=== PATIENT | male | born 1960 | race Caucasian/White ===

== ENCOUNTER 2016-04-04 18:22 | Inpatient (IN) | payer MEDICARE, MEDICAID ==
[~2016-04-04 18:22] MED LIST: FOLI1TAB15 PO; LEVE500T53 PO; MONT10TA21 PO; NICO14T TD; OLAN10TA3 PO; OLAN10VI3 PO; OLAN5Z PO; SERT100T12 PO; THIA1002I PO
[2016-04-04] MEDS ORDERED: HALOPERIDOL 5 MG TABLET PO PRN (18:45)
[2016-04-04] MEDS ORDERED: INFLUENZA VIRUS VACCINE QVS 2016-17 (3YR+)/PF 60 MCG/0.5 ML SYRINGE IM ONE (18:45)
[2016-04-04] MEDS ORDERED: PNEUMOCOCCAL VACCINE POLYVALENT 0.5 ML VIAL [PPSV23] IM ONE (18:45)
[2016-04-04 21:09] VITALS: BP 119/93
[2016-04-05 05:29] VITALS: BP 122/83
[2016-04-05] MEDS: LevETIRAcetam 500 MG TABLET PO SCH ×2 (10:38→17:32)
[2016-04-05] MEDS: MONTELUKAST SODIUM 10 MG TABLET PO SCH (10:38)
[2016-04-05] MEDS: FOLIC ACID 1 MG TABLET PO SCH (10:38)
[2016-04-05] MEDS: THIAMINE HCL 100 MG TABLET PO SCH (10:38)
[2016-04-05] MEDS: SERTRALINE HCL 100 MG TABLET PO SCH (12:22)
[2016-04-05] MEDS ORDERED: IBUPROFEN 400 MG TABLET PO PRN (19:15)
[2016-04-05] MEDS ORDERED: ACETAMINOPHEN 325 MG TABLET PO PRN (19:15)
[2016-04-05] MEDS: OLANZapine 7.5 MG TABLET PO SCH (20:36)
[2016-04-06] MEDS: SERTRALINE HCL 100 MG TABLET PO SCH (09:04)
[2016-04-06] MEDS: MONTELUKAST SODIUM 10 MG TABLET PO SCH (09:04)
[2016-04-06] MEDS: FOLIC ACID 1 MG TABLET PO SCH (09:04)
[2016-04-06] MEDS: THIAMINE HCL 100 MG TABLET PO SCH (09:04)
[2016-04-06] MEDS: LevETIRAcetam 500 MG TABLET PO SCH ×2 (09:05→16:19)
[2016-04-06 16:05] VITALS: BP 106/73
[2016-04-06] MEDS: OLANZapine 7.5 MG TABLET PO SCH (20:12)
[2016-04-07] MEDS: THIAMINE HCL 100 MG TABLET PO SCH (09:19)
[2016-04-07] MEDS: SERTRALINE HCL 100 MG TABLET PO SCH (09:19)
[2016-04-07] MEDS: LevETIRAcetam 500 MG TABLET PO SCH ×2 (09:19→16:24)
[2016-04-07] MEDS: FOLIC ACID 1 MG TABLET PO SCH (09:19)
[2016-04-07] MEDS: MONTELUKAST SODIUM 10 MG TABLET PO SCH (09:19)
[2016-04-07] MEDS: OLANZapine 7.5 MG TABLET PO SCH (20:17)
[2016-04-08] MEDS: THIAMINE HCL 100 MG TABLET PO SCH (09:26)
[2016-04-08] MEDS: LevETIRAcetam 500 MG TABLET PO SCH ×2 (09:26→16:20)
[2016-04-08] MEDS: FOLIC ACID 1 MG TABLET PO SCH (09:26)
[2016-04-08] MEDS: SERTRALINE HCL 100 MG TABLET PO SCH (09:26)
[2016-04-08] MEDS: MONTELUKAST SODIUM 10 MG TABLET PO SCH (09:26)
[2016-04-08] MEDS: OLANZapine 7.5 MG TABLET PO SCH (20:31)
[2016-04-09] MEDS: THIAMINE HCL 100 MG TABLET PO SCH (08:38)
[2016-04-09] MEDS: FOLIC ACID 1 MG TABLET PO SCH (08:39)
[2016-04-09] MEDS: LevETIRAcetam 500 MG TABLET PO SCH (08:39)
[2016-04-09] MEDS: MONTELUKAST SODIUM 10 MG TABLET PO SCH (08:39)
[2016-04-09] MEDS: SERTRALINE HCL 100 MG TABLET PO SCH (08:39)
[2016-08-22] MEDS ORDERED: MAGOX PO (16:22)
[2016-08-22] MEDS ORDERED: FLUT1BLS PO (16:22)
[2016-08-22] MEDS ORDERED: QUET100T PO (16:25)
== END 2016-04-09 17:06 | disposition home or self-care (01) | DRG 885 ==
LOC: B2X 18:41 → EDSTATUS 18:45
PROVIDERS: ADMIT Psychiatry & Neurology Psychiatry; ATTEND Psychiatry & Neurology Psychiatry
DX: F20.0 Paranoid schizophrenia (principal); R45.851 Suicidal ideations; D64.9 Anemia, unspecified; E78.5 Hyperlipidemia, unspecified; F17.210 Nicotine dependence, cigarettes, uncomplicated; Z71.6 Tobacco abuse counseling; G40.909 Epilepsy, unspecified, not intractable, without status epilepticus; I10 Essential (primary) hypertension; J44.9 Chronic obstructive pulmonary disease, unspecified; K21.9 Gastro-esophageal reflux disease without esophagitis; Z59.0 Homelessness; Z28.21 Immunization not carried out because of patient refusal; Z79.899 Other long term (current) drug therapy
CPT/HCPCS: 90471

== ENCOUNTER 2016-04-13 20:08 | Inpatient (IN) | payer MEDICARE, MEDICAID ==
[~2016-04-13] VITALS: Ht 180.3 cm; Wt 71.2 kg
[~2016-04-13 20:08] MED LIST changes: -FOLI1TAB15 PO; -NICO14T TD; -OLAN10VI3 PO; -THIA1002I PO
[2016-04-14 06:45] VITALS: BP 117/80
[2016-04-14] MEDS ORDERED: ZOLPIDEM TARTRATE 10 MG TABLET PO PRN (07:00)
[2016-04-14] MEDS ORDERED: HALOPERIDOL 5 MG TABLET PO PRN (07:00)
[2016-04-14] MEDS ORDERED: LORazepam 2 MG TABLET PO PRN (07:00)
[2016-04-14] MEDS ORDERED: INFLUENZA VIRUS VACCINE QVS 2016-17 (3YR+)/PF 60 MCG/0.5 ML SYRINGE IM ONE (07:45)
[2016-04-14] MEDS ORDERED: PNEUMOCOCCAL VACCINE POLYVALENT 0.5 ML VIAL [PPSV23] IM ONE (07:45)
[2016-04-14 08:41] VITALS: BP 109/77
[2016-04-14] MEDS: SERTRALINE HCL 50 MG TABLET PO SCH (14:34)
[2016-04-14] MEDS ORDERED: IBUPROFEN 400 MG TABLET PO PRN (15:15)
[2016-04-14] MEDS ORDERED: ACETAMINOPHEN 325 MG TABLET PO PRN (15:15)
[2016-04-14] MEDS ORDERED: ALBUTEROL SULFATE HFA 90 MCG/PUFF 8 GM INHALER IH PRN (15:15)
[2016-04-14] MEDS: LevETIRAcetam 500 MG TABLET PO SCH (17:12)
[2016-04-14] MEDS: OLANZapine 7.5 MG TABLET PO SCH (20:03)
[2016-04-14] MEDS ORDERED: OLANZapine 10 MG TABLET PO SCH ×2 (21:00)
[2016-04-15 06:04] VITALS: BP 121/75
[2016-04-15] MEDS: OMEPRAZOLE 20 MG CAPSULE PO SCH (09:40)
[2016-04-15] MEDS: FOLIC ACID 1 MG TABLET PO SCH (09:40)
[2016-04-15] MEDS: THIAMINE HCL 100 MG TABLET PO SCH (09:40)
[2016-04-15] MEDS: MONTELUKAST SODIUM 10 MG TABLET PO SCH (09:40)
[2016-04-15] MEDS: SERTRALINE HCL 50 MG TABLET PO SCH (09:42)
[2016-04-15] MEDS: LevETIRAcetam 500 MG TABLET PO SCH ×2 (09:50→20:05)
[2016-04-15] MEDS: OLANZapine 7.5 MG TABLET PO SCH (20:33)
[2016-04-16 00:38] VITALS: BP 124/73
[2016-04-16 08:24] VITALS: BP 120/92
[2016-04-16] MEDS: LevETIRAcetam 500 MG TABLET PO SCH ×2 (08:29→20:26)
[2016-04-16] MEDS: SERTRALINE HCL 50 MG TABLET PO SCH (08:29)
[2016-04-16] MEDS: FOLIC ACID 1 MG TABLET PO SCH (08:29)
[2016-04-16] MEDS: MONTELUKAST SODIUM 10 MG TABLET PO SCH (08:30)
[2016-04-16] MEDS: THIAMINE HCL 100 MG TABLET PO SCH (08:30)
[2016-04-16] MEDS: OMEPRAZOLE 20 MG CAPSULE PO SCH (08:30)
[2016-04-16 16:17] VITALS: BP 113/77
[2016-04-16] MEDS: OLANZapine 7.5 MG TABLET PO SCH (20:25)
[2016-04-17] MEDS: MONTELUKAST SODIUM 10 MG TABLET PO SCH (09:23)
[2016-04-17] MEDS: FOLIC ACID 1 MG TABLET PO SCH (09:23)
[2016-04-17] MEDS: LevETIRAcetam 500 MG TABLET PO SCH ×2 (09:23→16:23)
[2016-04-17] MEDS: THIAMINE HCL 100 MG TABLET PO SCH (09:23)
[2016-04-17] MEDS: OMEPRAZOLE 20 MG CAPSULE PO SCH (09:23)
[2016-04-17] MEDS: SERTRALINE HCL 50 MG TABLET PO SCH (09:23)
[2016-04-17 16:03] VITALS: BP 129/84
[2016-04-17] MEDS: OLANZapine 7.5 MG TABLET PO SCH (20:51)
[2016-04-18] MEDS: LevETIRAcetam 500 MG TABLET PO SCH ×2 (09:00→16:30)
[2016-04-18] MEDS: SERTRALINE HCL 50 MG TABLET PO SCH (09:00)
[2016-04-18] MEDS: FOLIC ACID 1 MG TABLET PO SCH (09:00)
[2016-04-18] MEDS: THIAMINE HCL 100 MG TABLET PO SCH (09:00)
[2016-04-18] MEDS: MONTELUKAST SODIUM 10 MG TABLET PO SCH (09:00)
[2016-04-18] MEDS: OMEPRAZOLE 20 MG CAPSULE PO SCH (09:00)
[2016-04-18] MEDS: OLANZapine 7.5 MG TABLET PO SCH (20:31)
[2016-04-19] MEDS: SERTRALINE HCL 50 MG TABLET PO SCH (09:51)
[2016-04-19] MEDS: THIAMINE HCL 100 MG TABLET PO SCH (09:51)
[2016-04-19] MEDS: LevETIRAcetam 500 MG TABLET PO SCH (09:51)
[2016-04-19] MEDS: MONTELUKAST SODIUM 10 MG TABLET PO SCH (09:51)
[2016-04-19] MEDS: OMEPRAZOLE 20 MG CAPSULE PO SCH (09:51)
[2016-04-19] MEDS: FOLIC ACID 1 MG TABLET PO SCH (09:51)
[2016-04-19] MEDS ORDERED: SERT50TA12 PO (13:04)
[2016-04-19] MEDS ORDERED: FOLI1 PO (13:08)
[2016-04-19] MEDS ORDERED: OMEP20 PO (13:09)
[2016-08-22] MEDS ORDERED: MAGOX PO (16:22)
[2016-08-22] MEDS ORDERED: FLUT1BLS PO (16:22)
[2016-08-22] MEDS ORDERED: QUET100T PO (16:25)
== END 2016-04-19 15:30 | disposition home or self-care (01) | DRG 885 ==
LOC: B2X 04-14 06:59
DX: F25.1 Schizoaffective disorder, depressive type (principal); R45.851 Suicidal ideations; G40.909 Epilepsy, unspecified, not intractable, without status epilepticus; I10 Essential (primary) hypertension; J44.9 Chronic obstructive pulmonary disease, unspecified; K21.9 Gastro-esophageal reflux disease without esophagitis; D64.9 Anemia, unspecified; F10.20 Alcohol dependence, uncomplicated; F19.10 Other psychoactive substance abuse, uncomplicated; F17.200 Nicotine dependence, unspecified, uncomplicated; Z28.21 Immunization not carried out because of patient refusal; Z59.0 Homelessness; Z71.51 Drug abuse counseling and surveillance of drug abuser; Z91.14 Patient's other noncompliance with medication regimen
CPT/HCPCS: 87081

== ENCOUNTER 2016-04-22 13:38 | Inpatient (IN) | payer MEDICARE, MEDICAID ==
[~2016-04-22] VITALS: Ht 177.8 cm; Wt 71.4 kg
[~2016-04-22 13:38] MED LIST changes: +FOLI1 PO; -OLAN10TA3 PO; +OMEP20 PO
[2016-04-22] MEDS ORDERED: LORazepam 2 MG TABLET PO PRN (17:30)
[2016-04-22 18:00] VITALS: BP 126/84
[2016-04-22] MEDS ORDERED: INFLUENZA VIRUS VACCINE QVS 2016-17 (3YR+)/PF 60 MCG/0.5 ML SYRINGE IM ONE (18:30)
[2016-04-23 08:11] VITALS: BP 130/76
[2016-04-23] MEDS: OLANZapine 7.5 MG TABLET PO SCH (21:07)
[2016-04-23] MEDS ORDERED: ACETAMINOPHEN 325 MG TABLET PO PRN (23:30)
[2016-04-23] MEDS ORDERED: ALBUTEROL SULFATE HFA 90 MCG/PUFF 8 GM INHALER IH PRN (23:30)
[2016-04-24] MEDS: SERTRALINE HCL 100 MG TABLET PO SCH (09:56)
[2016-04-24] MEDS: OMEPRAZOLE 20 MG CAPSULE PO SCH (09:56)
[2016-04-24] MEDS: FOLIC ACID 1 MG TABLET PO SCH (09:56)
[2016-04-24] MEDS: LevETIRAcetam 500 MG TABLET PO SCH ×2 (09:56→16:38)
[2016-04-24] MEDS: MONTELUKAST SODIUM 10 MG TABLET PO SCH (09:56)
[2016-04-24] MEDS: OLANZapine 7.5 MG TABLET PO SCH (20:30)
[2016-04-25 00:11] VITALS: BP 101/62
[2016-04-25] MEDS: LevETIRAcetam 500 MG TABLET PO SCH ×2 (09:42→16:29)
[2016-04-25] MEDS: MONTELUKAST SODIUM 10 MG TABLET PO SCH (09:42)
[2016-04-25] MEDS: OMEPRAZOLE 20 MG CAPSULE PO SCH (09:42)
[2016-04-25] MEDS: FOLIC ACID 1 MG TABLET PO SCH (09:42)
[2016-04-25] MEDS: SERTRALINE HCL 100 MG TABLET PO SCH (09:42)
[2016-04-25] MEDS: IBUPROFEN 400 MG TABLET PO PRN (16:29)
[2016-04-25 16:30] VITALS: BP 126/71
[2016-04-25] MEDS: OLANZapine 7.5 MG TABLET PO SCH (20:29)
[2016-04-26 08:17] LABS: APPEARANCE,URINE CLEAR (CLEAR); GLUCOSE, URINE (UA) NEGATIVE (NEGATIVE); KETONES,URINE NEGATIVE (NEGATIVE); LEUKOCYTE ESTERASE ,URINE NEGATIVE (NEGATIVE); OCCULT BLOOD,URINE NEGATIVE (NEGATIVE); PH,URINE 7.5 (5.0-8.0); PROTEIN,URINE NEGATIVE (NEGATIVE)
[2016-04-26 08:21] LABS: ADD UA MICROSCOPIC NO
[2016-04-26] MEDS: OMEPRAZOLE 20 MG CAPSULE PO SCH (10:00)
[2016-04-26] MEDS: FOLIC ACID 1 MG TABLET PO SCH (10:01)
[2016-04-26] MEDS: LevETIRAcetam 500 MG TABLET PO SCH ×2 (10:01→16:47)
[2016-04-26] MEDS: MONTELUKAST SODIUM 10 MG TABLET PO SCH (10:01)
[2016-04-26] MEDS: SERTRALINE HCL 100 MG TABLET PO SCH (10:01)
[2016-04-26] MEDS: IBUPROFEN 400 MG TABLET PO PRN (16:11)
[2016-04-26 16:18] VITALS: BP 120/78
[2016-04-26] MEDS: OLANZapine 7.5 MG TABLET PO SCH (20:38)
[2016-04-27 00:11] VITALS: BP 109/67
[2016-04-27] MEDS: SERTRALINE HCL 100 MG TABLET PO SCH (09:35)
[2016-04-27] MEDS: LevETIRAcetam 500 MG TABLET PO SCH ×2 (09:35→16:44)
[2016-04-27] MEDS: MONTELUKAST SODIUM 10 MG TABLET PO SCH (09:36)
[2016-04-27] MEDS: OMEPRAZOLE 20 MG CAPSULE PO SCH (09:36)
[2016-04-27] MEDS: FOLIC ACID 1 MG TABLET PO SCH (09:36)
[2016-04-27] MEDS: OLANZapine 7.5 MG TABLET PO SCH (20:45)
[2016-04-28] MEDS: MONTELUKAST SODIUM 10 MG TABLET PO SCH (10:37)
[2016-04-28] MEDS: FOLIC ACID 1 MG TABLET PO SCH (10:37)
[2016-04-28] MEDS: OMEPRAZOLE 20 MG CAPSULE PO SCH (10:37)
[2016-04-28] MEDS: LevETIRAcetam 500 MG TABLET PO SCH ×2 (10:37→16:34)
[2016-04-28] MEDS: SERTRALINE HCL 100 MG TABLET PO SCH (10:37)
[2016-04-28] MEDS: OLANZapine 7.5 MG TABLET PO SCH (20:24)
[2016-04-29] MEDS: SERTRALINE HCL 100 MG TABLET PO SCH (09:16)
[2016-04-29] MEDS: FOLIC ACID 1 MG TABLET PO SCH (09:16)
[2016-04-29] MEDS: OMEPRAZOLE 20 MG CAPSULE PO SCH (09:16)
[2016-04-29] MEDS: LevETIRAcetam 500 MG TABLET PO SCH ×2 (09:17→16:36)
[2016-04-29] MEDS: MONTELUKAST SODIUM 10 MG TABLET PO SCH (09:17)
[2016-04-29] MEDS: OLANZapine 7.5 MG TABLET PO SCH (20:13)
[2016-04-30 08:35] VITALS: BP 130/86
[2016-04-30] MEDS: LevETIRAcetam 500 MG TABLET PO SCH ×2 (09:05→16:47)
[2016-04-30] MEDS: SERTRALINE HCL 100 MG TABLET PO SCH (09:05)
[2016-04-30] MEDS: FOLIC ACID 1 MG TABLET PO SCH (09:05)
[2016-04-30] MEDS: OMEPRAZOLE 20 MG CAPSULE PO SCH (09:05)
[2016-04-30] MEDS: MONTELUKAST SODIUM 10 MG TABLET PO SCH (09:05)
[2016-04-30] MEDS: OLANZapine 7.5 MG TABLET PO SCH (20:39)
[2016-04-30] MEDS: ZOLPIDEM TARTRATE 10 MG TABLET PO PRN (21:12)
[2016-05-01 03:32] VITALS: BP 139/65
[2016-05-01] MEDS: FOLIC ACID 1 MG TABLET PO SCH (08:45)
[2016-05-01] MEDS: LevETIRAcetam 500 MG TABLET PO SCH ×2 (08:45→17:08)
[2016-05-01] MEDS: OMEPRAZOLE 20 MG CAPSULE PO SCH (08:45)
[2016-05-01] MEDS: MONTELUKAST SODIUM 10 MG TABLET PO SCH (08:45)
[2016-05-01] MEDS: SERTRALINE HCL 100 MG TABLET PO SCH (08:46)
[2016-05-01] MEDS: OLANZapine 7.5 MG TABLET PO SCH (20:35)
[2016-05-01] MEDS: ZOLPIDEM TARTRATE 10 MG TABLET PO PRN (21:18)
[2016-05-02 05:59] VITALS: BP 140/91
[2016-05-02] MEDS: OMEPRAZOLE 20 MG CAPSULE PO SCH (08:38)
[2016-05-02] MEDS: LevETIRAcetam 500 MG TABLET PO SCH (08:38)
[2016-05-02] MEDS: SERTRALINE HCL 100 MG TABLET PO SCH (08:38)
[2016-05-02] MEDS: MONTELUKAST SODIUM 10 MG TABLET PO SCH (08:38)
[2016-05-02] MEDS: FOLIC ACID 1 MG TABLET PO SCH (08:38)
[2016-05-02] MEDS: IBUPROFEN 400 MG TABLET PO PRN (10:58)
[2016-08-22] MEDS ORDERED: MAGOX PO (16:22)
[2016-08-22] MEDS ORDERED: FLUT1BLS PO (16:22)
[2016-08-22] MEDS ORDERED: QUET100T PO (16:25)
== END 2016-05-02 15:45 | disposition home or self-care (01) | DRG 885 ==
LOC: B2X 17:19 → EDSTATUS 17:26
PROVIDERS: ADMIT Psychiatry & Neurology Child & Adolescent Psychiatry
PROC: 3E0234Z Introduction of Serum, Toxoid and Vaccine into Muscle, Percutaneous Approach (ICD-10-PCS; principal; 2016-04-22)
DX: F25.1 Schizoaffective disorder, depressive type (principal); E46 Unspecified protein-calorie malnutrition; R45.851 Suicidal ideations; D64.9 Anemia, unspecified; F17.210 Nicotine dependence, cigarettes, uncomplicated; F10.10 Alcohol abuse, uncomplicated; G40.909 Epilepsy, unspecified, not intractable, without status epilepticus; Z68.22 Body mass index [BMI] 22.0-22.9, adult; I10 Essential (primary) hypertension; J44.9 Chronic obstructive pulmonary disease, unspecified; J45.909 Unspecified asthma, uncomplicated; K21.9 Gastro-esophageal reflux disease without esophagitis; Z91.14 Patient's other noncompliance with medication regimen; F19.10 Other psychoactive substance abuse, uncomplicated; F99 Mental disorder, not otherwise specified; Z23 Encounter for immunization; Z59.0 Homelessness
CPT/HCPCS: 87081

== ENCOUNTER 2016-05-06 20:29 | Emergency (ER) | payer MEDICARE, OTHER ==
[~2016-05-06] VITALS: Ht 180.3 cm; Wt 81.8 kg
[~2016-05-06 20:29] MED LIST changes: -FOLI1 PO
[2016-05-06 21:14] LABS: BASOPHILS # (AUTO) 0.07 K/uL (0.00-0.20); BASOPHILS % (AUTO) 0.6 % (0.0-2.0); EOSINOPHILS # (AUTO) 0.18 K/uL (0.00-0.70); EOSINOPHILS % (AUTO) 1.47 % (1.0-6.0); HEMATOCRIT 41.6 % (41-53); HEMOGLOBIN 14.3 g/dL (13.5-17.5); LYMPHOCYTES # (AUTO) 3.7 K/uL (1.0-4.8); LYMPHOCYTES % (AUTO) 29.7 % (22.0-44.0); MEAN CORPUSCULAR HEMOGLOBIN 31.4 pg (26.0-34.0); MEAN CORPUSCULAR HGB CONC 34.3 G/dL (31.0-37.0); MEAN CORPUSCULAR VOLUME 92 fL (80-100); MONOCYTES % (AUTO) 7.7 % (2.0-9.0); NEUTROPHILS # (AUTO) 7.5 K/uL (1.8-7.7); NEUTROPHILS % (AUTO) 60.6 % (40.0-70.0); PLATELET COUNT (AUTO) 221 K/uL (150-450); RED BLOOD CELL COUNT(AUTO) 4.54 MIL/uL (4.50-5.90); RED CELL DISTRIBUTION WIDTH 13.4 % (11.5-14.5); WHITE BLOOD COUNT (AUTO) 12.4 K/uL (4.5-11.0)
[2016-05-06 21:29] LABS: ANION GAP 10 mmol/L (8-16); CALCIUM, TOTAL 8.4 mg/dL (8.8-10.5); CARBON DIOXIDE 26 mmol/L (22-29); CHLORIDE 103 mmol/L (98-107); CREATININE 0.92 mg/dL (0.60-1.30); GLOMERULAR FILTR. RATE CALC > 60 mL/min (>60); POTASSIUM 4.1 mmol/L (3.5-5.1); SODIUM SERUM 139 mmol/L (136-145); UREA NITROGEN, BLOOD 23 mg/dL (7-18)
[2016-05-06 21:52] LABS: ALANINE AMINOTRANSFERASE 79 U/L (12-78); ALBUMIN 3.5 g/dL (3.4-5.0); ASPARTATE AMINOTRANSFERASE 31 U/L (15-37); BILIRUBIN,TOTAL 0.3 mg/dL (0.1-1.0); CREATINE KINASE, TOTAL 229 U/L (39-308)
[2016-05-06 23:01] LABS: APPEARANCE,URINE CLEAR (CLEAR); GLUCOSE, URINE (UA) NEGATIVE (NEGATIVE); KETONES,URINE NEGATIVE (NEGATIVE); LEUKOCYTE ESTERASE ,URINE NEGATIVE (NEGATIVE); OCCULT BLOOD,URINE SMALL (NEGATIVE); PH,URINE 6.5 (5.0-8.0); PROTEIN,URINE NEGATIVE (NEGATIVE)
[2016-05-06 23:02] LABS: ADD UA MICROSCOPIC YES
[2016-05-06 23:03] LABS: SQUAMOUS EPITHELIAL CELL,UR Rare /LPF (None Seen); WBC,URINE 0-2 /HPF (0-5)
[2016-05-07] MEDS ORDERED: KETOROLAC TROMETHAMINE 30 MG/ML VIAL IVP ONE
[2016-05-07] MEDS ORDERED: ALBUTEROL SULFATE 2.5 MG/0.5 ML NEB SOLUTION NEB ONE
[2016-05-07] MEDS ORDERED: IPRATROPIUM BROMIDE 0.5 MG/2.5 ML NEB SOLUTION NEB ONE
[2016-05-07] MEDS ORDERED: 0.9% SODIUM CHLORIDE 5 ML NEB SOLUTION NEB ONE (00:15)
[2016-05-07] MEDS ORDERED: IOVERSOL 350 MG/ML 100 ML VIAL ONE (02:33)
[2016-05-07] MEDS ORDERED: SODIUM CHLORIDE 0.9% 100 ML ONE (02:33)
[2016-05-07 04:00] VITALS: BP 136/75
[2016-08-22] MEDS ORDERED: MAGOX PO (16:22)
[2016-08-22] MEDS ORDERED: FLUT1BLS PO (16:22)
[2016-08-22] MEDS ORDERED: QUET100T PO (16:25)
== END 2016-05-07 04:50 | disposition home or self-care (01) ==
LOC: EMS 20:31
DX: R07.9 Chest pain, unspecified (principal); F17.210 Nicotine dependence, cigarettes, uncomplicated; F31.9 Bipolar disorder, unspecified; J44.9 Chronic obstructive pulmonary disease, unspecified; K21.9 Gastro-esophageal reflux disease without esophagitis; Z79.899 Other long term (current) drug therapy
CPT/HCPCS: 36415; 71010; 71260; 80053; 80307; 81001; 82550; 82553; 84484; 85025; 85379; 93005; 94640; 96374; 99285; G0480; J1885; J7050; Q9967

== ENCOUNTER 2016-05-11 19:22 | Inpatient (IN) | payer MEDICARE, MEDICAID ==
[~2016-05-11] VITALS: Ht 172.7 cm; Wt 74.5 kg
[2016-05-11 19:57] VITALS: BP 139/89
[2016-05-11] MEDS ORDERED: HALOPERIDOL 5 MG TABLET PO PRN (20:30)
[2016-05-11] MEDS ORDERED: ZOLPIDEM TARTRATE 10 MG TABLET PO PRN (20:30)
[2016-05-11] MEDS ORDERED: LORazepam 2 MG TABLET PO PRN (20:30)
[2016-05-11] MEDS ORDERED: PNEUMOCOCCAL VACCINE POLYVALENT 0.5 ML VIAL [PPSV23] IM ONE (21:15)
[2016-05-11] MEDS ORDERED: INFLUENZA VIRUS VACCINE QVS 2016-17 (3YR+)/PF 60 MCG/0.5 ML SYRINGE IM ONE (21:15)
[2016-05-11] MEDS: OLANZapine 7.5 MG TABLET PO SCH (21:27)
[2016-05-11 21:31] VITALS: BP 154/92
[2016-05-11] MEDS ORDERED: AmLODIPine BESYLATE 5 MG TABLET PO ONE (22:00)
[2016-05-12] MEDS: MONTELUKAST SODIUM 10 MG TABLET PO SCH (09:00)
[2016-05-12] MEDS: OMEPRAZOLE 20 MG CAPSULE PO SCH (09:00)
[2016-05-12] MEDS: AmLODIPine BESYLATE 5 MG TABLET PO SCH (09:00)
[2016-05-12] MEDS: SERTRALINE HCL 100 MG TABLET PO SCH (09:00)
[2016-05-12] MEDS: OLANZapine 7.5 MG TABLET PO SCH (20:20)
[2016-05-13 06:03] VITALS: BP 143/84
[2016-05-13] MEDS: SERTRALINE HCL 100 MG TABLET PO SCH (09:49)
[2016-05-13 09:50] VITALS: BP 110/60
[2016-05-13] MEDS: OMEPRAZOLE 20 MG CAPSULE PO SCH (09:50)
[2016-05-13] MEDS: AmLODIPine BESYLATE 5 MG TABLET PO SCH (09:50)
[2016-05-13] MEDS: MONTELUKAST SODIUM 10 MG TABLET PO SCH (09:50)
[2016-05-13] MEDS ORDERED: IBUPROFEN 400 MG TABLET PO PRN (11:15)
[2016-05-13] MEDS ORDERED: ACETAMINOPHEN 325 MG TABLET PO PRN (11:15)
[2016-05-13] MEDS ORDERED: ALBUTEROL SULFATE HFA 90 MCG/PUFF 8 GM INHALER IH PRN (11:15)
[2016-05-13 16:37] VITALS: BP 105/65
[2016-05-13] MEDS: LevETIRAcetam 500 MG TABLET PO SCH (16:42)
[2016-05-13] MEDS: OLANZapine 7.5 MG TABLET PO SCH (20:29)
[2016-05-14] VITALS: BP 121/77
[2016-05-14] MEDS: OMEPRAZOLE 20 MG CAPSULE PO SCH (08:25)
[2016-05-14] MEDS: SERTRALINE HCL 100 MG TABLET PO SCH (08:25)
[2016-05-14] MEDS: LevETIRAcetam 500 MG TABLET PO SCH ×2 (08:25→16:30)
[2016-05-14] MEDS: MONTELUKAST SODIUM 10 MG TABLET PO SCH (08:26)
[2016-05-14] MEDS: AmLODIPine BESYLATE 5 MG TABLET PO SCH (08:26)
[2016-05-14 08:51] VITALS: BP 123/83
[2016-05-14] MEDS ORDERED: MONTELUKAST SODIUM 10 MG TABLET PO SCH (09:00)
[2016-05-14] MEDS ORDERED: OMEPRAZOLE 20 MG CAPSULE PO SCH (09:00)
[2016-05-14] MEDS: OLANZapine 7.5 MG TABLET PO SCH (20:32)
[2016-05-15] MEDS: LevETIRAcetam 500 MG TABLET PO SCH ×2 (09:15→16:32)
[2016-05-15] MEDS: AmLODIPine BESYLATE 5 MG TABLET PO SCH (09:15)
[2016-05-15] MEDS: OMEPRAZOLE 20 MG CAPSULE PO SCH (09:15)
[2016-05-15] MEDS: SERTRALINE HCL 100 MG TABLET PO SCH (09:15)
[2016-05-15] MEDS: MONTELUKAST SODIUM 10 MG TABLET PO SCH (09:15)
[2016-05-15 16:13] VITALS: BP 109/79
[2016-05-15] MEDS: OLANZapine 7.5 MG TABLET PO SCH (20:32)
[2016-05-16 04:10] VITALS: BP 141/84
[2016-05-16] MEDS: SERTRALINE HCL 100 MG TABLET PO SCH (09:10)
[2016-05-16] MEDS: LevETIRAcetam 500 MG TABLET PO SCH ×2 (09:10→16:30)
[2016-05-16] MEDS: AmLODIPine BESYLATE 5 MG TABLET PO SCH (09:10)
[2016-05-16] MEDS: OMEPRAZOLE 20 MG CAPSULE PO SCH (09:10)
[2016-05-16] MEDS: MONTELUKAST SODIUM 10 MG TABLET PO SCH (09:11)
[2016-05-16 09:17] VITALS: BP 113/73
[2016-08-22] MEDS ORDERED: FLUT1BLS PO (16:22)
[2016-08-22] MEDS ORDERED: MAGOX PO (16:22)
[2016-08-22] MEDS ORDERED: QUET100T PO (16:25)
== END 2016-05-16 17:05 | disposition home or self-care (01) | DRG 885 ==
LOC: B2X 20:27 → EDSTATUS 20:31 → B2X 05-12 09:29
PROVIDERS: ADMIT Psychiatry & Neurology Psychiatry
DX: F25.1 Schizoaffective disorder, depressive type (principal); E46 Unspecified protein-calorie malnutrition; R45.851 Suicidal ideations; D64.9 Anemia, unspecified; F10.10 Alcohol abuse, uncomplicated; F17.210 Nicotine dependence, cigarettes, uncomplicated; F99 Mental disorder, not otherwise specified; F19.10 Other psychoactive substance abuse, uncomplicated; F60.3 Borderline personality disorder; F32.9 Major depressive disorder, single episode, unspecified; G40.909 Epilepsy, unspecified, not intractable, without status epilepticus; I10 Essential (primary) hypertension; J44.9 Chronic obstructive pulmonary disease, unspecified; J45.909 Unspecified asthma, uncomplicated; K21.9 Gastro-esophageal reflux disease without esophagitis; Z79.899 Other long term (current) drug therapy; Z59.0 Homelessness; Z91.5 Personal history of self-harm; Z91.19 Patient's noncompliance with other medical treatment and regimen
CPT/HCPCS: 87081; 90471

== ENCOUNTER 2016-05-29 14:53 | Inpatient (IN) | payer MEDICARE, MEDICAID ==
[~2016-05-29] VITALS: Ht 180.3 cm; Wt 74.2 kg
[2016-05-29] MEDS ORDERED: LORazepam 2 MG TABLET PO PRN (15:30)
[2016-05-29] MEDS ORDERED: ZOLPIDEM TARTRATE 10 MG TABLET PO PRN (15:30)
[2016-05-29] MEDS ORDERED: HALOPERIDOL 5 MG TABLET PO PRN (15:30)
[2016-05-29] MEDS ORDERED: PNEUMOCOCCAL VACCINE POLYVALENT 0.5 ML VIAL [PPSV23] IM ONE (15:45)
[2016-05-29] MEDS ORDERED: INFLUENZA VIRUS VACCINE QVS 2016-17 (3YR+)/PF 60 MCG/0.5 ML SYRINGE IM ONE (15:45)
[2016-05-29 16:18] VITALS: BP 147/88
[2016-05-29] MEDS: OLANZapine 10 MG TABLET PO SCH (20:39)
[2016-05-30] MEDS ORDERED: SERTRALINE HCL 100 MG TABLET PO SCH (09:00)
[2016-05-30] MEDS: OMEPRAZOLE 20 MG CAPSULE PO SCH (09:53)
[2016-05-30] MEDS: MONTELUKAST SODIUM 10 MG TABLET PO SCH (09:53)
[2016-05-30] MEDS: LevETIRAcetam 500 MG TABLET PO SCH ×2 (09:54→17:20)
[2016-05-30 16:20] VITALS: BP 132/78
[2016-05-30] MEDS ORDERED: ACETAMINOPHEN 325 MG TABLET PO PRN (18:00)
[2016-05-30] MEDS ORDERED: IBUPROFEN 400 MG TABLET PO PRN (18:00)
[2016-05-30] MEDS: OLANZapine 10 MG TABLET PO SCH (20:45)
[2016-05-31 08:25] VITALS: BP 112/75
[2016-05-31] MEDS: MONTELUKAST SODIUM 10 MG TABLET PO SCH (10:04)
[2016-05-31] MEDS: SERTRALINE HCL 100 MG TABLET PO SCH (10:04)
[2016-05-31] MEDS: LevETIRAcetam 500 MG TABLET PO SCH ×2 (10:04→16:47)
[2016-05-31] MEDS: OMEPRAZOLE 20 MG CAPSULE PO SCH (10:04)
[2016-05-31 16:00] VITALS: BP 120/69
[2016-05-31] MEDS: OLANZapine 10 MG TABLET PO SCH (20:45)
[2016-06-01] MEDS: SERTRALINE HCL 100 MG TABLET PO SCH (09:09)
[2016-06-01] MEDS: LevETIRAcetam 500 MG TABLET PO SCH ×2 (09:09→17:18)
[2016-06-01] MEDS: MONTELUKAST SODIUM 10 MG TABLET PO SCH (09:09)
[2016-06-01] MEDS: OMEPRAZOLE 20 MG CAPSULE PO SCH (09:09)
[2016-06-01] MEDS: OLANZapine 10 MG TABLET PO SCH (21:12)
[2016-06-02] MEDS: LevETIRAcetam 500 MG TABLET PO SCH ×3 (10:01→16:45)
[2016-06-02] MEDS: OMEPRAZOLE 20 MG CAPSULE PO SCH (10:01)
[2016-06-02] MEDS: MONTELUKAST SODIUM 10 MG TABLET PO SCH (10:01)
[2016-06-02] MEDS: SERTRALINE HCL 100 MG TABLET PO SCH (10:01)
[2016-06-02 16:00] VITALS: BP 132/70
[2016-06-02] MEDS: OLANZapine 10 MG TABLET PO SCH (20:45)
[2016-06-03] MEDS: SERTRALINE HCL 100 MG TABLET PO SCH (09:40)
[2016-06-03] MEDS: OMEPRAZOLE 20 MG CAPSULE PO SCH (09:40)
[2016-06-03] MEDS: LevETIRAcetam 500 MG TABLET PO SCH ×2 (09:40→16:17)
[2016-06-03] MEDS: MONTELUKAST SODIUM 10 MG TABLET PO SCH (09:40)
[2016-06-03] MEDS: OLANZapine 10 MG TABLET PO SCH (21:05)
[2016-06-04] MEDS: MONTELUKAST SODIUM 10 MG TABLET PO SCH (09:18)
[2016-06-04] MEDS: SERTRALINE HCL 100 MG TABLET PO SCH (09:18)
[2016-06-04] MEDS: OMEPRAZOLE 20 MG CAPSULE PO SCH (09:18)
[2016-06-04] MEDS: LevETIRAcetam 500 MG TABLET PO SCH ×2 (09:18→16:13)
[2016-06-04] MEDS: OLANZapine 10 MG TABLET PO SCH (20:27)
[2016-06-05 08:20] VITALS: BP 112/68
[2016-06-05] MEDS: LevETIRAcetam 500 MG TABLET PO SCH ×2 (08:44→16:27)
[2016-06-05] MEDS: SERTRALINE HCL 100 MG TABLET PO SCH (08:44)
[2016-06-05] MEDS: MONTELUKAST SODIUM 10 MG TABLET PO SCH (08:44)
[2016-06-05] MEDS: OMEPRAZOLE 20 MG CAPSULE PO SCH (08:44)
[2016-06-05 16:38] VITALS: BP 110/67
[2016-06-05] MEDS: OLANZapine 10 MG TABLET PO SCH (20:32)
[2016-06-06] MEDS: OMEPRAZOLE 20 MG CAPSULE PO SCH (09:28)
[2016-06-06] MEDS: LevETIRAcetam 500 MG TABLET PO SCH ×2 (09:28→16:15)
[2016-06-06] MEDS: SERTRALINE HCL 100 MG TABLET PO SCH (09:28)
[2016-06-06] MEDS: MONTELUKAST SODIUM 10 MG TABLET PO SCH (09:28)
[2016-06-06 09:33] VITALS: BP 115/71
[2016-06-06 16:30] VITALS: BP 105/68
[2016-06-06] MEDS: OLANZapine 10 MG TABLET PO SCH (20:17)
[2016-06-07] MEDS: MONTELUKAST SODIUM 10 MG TABLET PO SCH (08:56)
[2016-06-07] MEDS: OMEPRAZOLE 20 MG CAPSULE PO SCH (08:57)
[2016-06-07] MEDS: LevETIRAcetam 500 MG TABLET PO SCH (08:57)
[2016-06-07] MEDS: SERTRALINE HCL 100 MG TABLET PO SCH (08:57)
[2016-08-22] MEDS ORDERED: FLUT1BLS PO (16:22)
[2016-08-22] MEDS ORDERED: MAGOX PO (16:22)
[2016-08-22] MEDS ORDERED: QUET100T PO (16:25)
== END 2016-06-07 13:30 | disposition home or self-care (01) | DRG 885 ==
LOC: B3A 15:27 → EDSTATUS 15:30 → B2S 06-01 09:35
DX: F25.1 Schizoaffective disorder, depressive type (principal); I10 Essential (primary) hypertension; T48.6X2A Poisoning by antiasthmatics, intentional self-harm, initial encounter; J44.9 Chronic obstructive pulmonary disease, unspecified; K21.9 Gastro-esophageal reflux disease without esophagitis; G40.909 Epilepsy, unspecified, not intractable, without status epilepticus; D64.9 Anemia, unspecified; F10.10 Alcohol abuse, uncomplicated; F17.200 Nicotine dependence, unspecified, uncomplicated; F19.10 Other psychoactive substance abuse, uncomplicated; J45.909 Unspecified asthma, uncomplicated; Z59.0 Homelessness; Z79.899 Other long term (current) drug therapy; Z71.51 Drug abuse counseling and surveillance of drug abuser; Z71.41 Alcohol abuse counseling and surveillance of alcoholic; Z28.21 Immunization not carried out because of patient refusal; X58.XXXA Exposure to other specified factors, initial encounter; Y93.89 Activity, other specified; Y92.89 Other specified places as the place of occurrence of the external cause; Y99.8 Other external cause status
CPT/HCPCS: 87081

== ENCOUNTER 2016-06-12 20:56 | Inpatient (IN) | payer MEDICARE, MEDICAID ==
[~2016-06-12] VITALS: Ht 180.3 cm; Wt 77.7 kg
[2016-06-12] MEDS ORDERED: ZOLPIDEM TARTRATE 10 MG TABLET PO PRN (21:15)
[2016-06-12] MEDS ORDERED: HALOPERIDOL 5 MG TABLET PO PRN (21:15)
[2016-06-12] MEDS ORDERED: PNEUMOCOCCAL VACCINE POLYVALENT 0.5 ML VIAL [PPSV23] IM ONE (21:45)
[2016-06-12 22:15] VITALS: BP 139/89
[2016-06-13 00:10] VITALS: BP 114/66
[2016-06-13] MEDS: LORazepam 2 MG TABLET PO PRN ×2 (00:23→20:01)
[2016-06-13] MEDS: NICOTINE 14 MG/24 HOUR PATCH TD SCH (08:58)
[2016-06-13] MEDS: LevETIRAcetam 500 MG TABLET PO SCH ×2 (08:58→16:42)
[2016-06-13] MEDS: OMEPRAZOLE 20 MG CAPSULE PO SCH (08:58)
[2016-06-13] MEDS: SERTRALINE HCL 100 MG TABLET PO SCH (08:58)
[2016-06-13 16:13] VITALS: BP 136/79
[2016-06-13] MEDS: OLANZapine 7.5 MG TABLET PO SCH (20:45)
[2016-06-13] MEDS ORDERED: IBUPROFEN 400 MG TABLET PO PRN (23:00)
[2016-06-13] MEDS ORDERED: ACETAMINOPHEN 325 MG TABLET PO PRN (23:00)
[2016-06-14 00:03] VITALS: BP 114/66
[2016-06-14] MEDS: OMEPRAZOLE 20 MG CAPSULE PO SCH (08:50)
[2016-06-14] MEDS: MONTELUKAST SODIUM 10 MG TABLET PO SCH (08:50)
[2016-06-14] MEDS: LevETIRAcetam 500 MG TABLET PO SCH ×2 (08:50→16:36)
[2016-06-14] MEDS: SERTRALINE HCL 100 MG TABLET PO SCH (08:50)
[2016-06-14] MEDS: NICOTINE 14 MG/24 HOUR PATCH TD SCH (08:51)
[2016-06-14] MEDS ORDERED: LevETIRAcetam 500 MG TABLET PO SCH (09:00)
[2016-06-14] MEDS ORDERED: OMEPRAZOLE 20 MG CAPSULE PO SCH (09:00)
[2016-06-14] MEDS: LORazepam 2 MG TABLET PO PRN (16:25)
[2016-06-14] MEDS: OLANZapine 7.5 MG TABLET PO SCH (20:36)
[2016-06-15 06:47] VITALS: BP 129/72
[2016-06-15] MEDS: MONTELUKAST SODIUM 10 MG TABLET PO SCH (09:02)
[2016-06-15] MEDS: LevETIRAcetam 500 MG TABLET PO SCH ×2 (09:02→16:08)
[2016-06-15] MEDS: OMEPRAZOLE 20 MG CAPSULE PO SCH (09:02)
[2016-06-15] MEDS: SERTRALINE HCL 100 MG TABLET PO SCH (09:02)
[2016-06-15] MEDS: NICOTINE 14 MG/24 HOUR PATCH TD SCH (09:03)
[2016-06-15 16:12] VITALS: BP 126/79
[2016-06-15] MEDS: OLANZapine 7.5 MG TABLET PO SCH (20:17)
[2016-06-16] MEDS: LevETIRAcetam 500 MG TABLET PO SCH ×2 (08:06→16:38)
[2016-06-16] MEDS: SERTRALINE HCL 100 MG TABLET PO SCH (08:06)
[2016-06-16] MEDS: OMEPRAZOLE 20 MG CAPSULE PO SCH (08:06)
[2016-06-16] MEDS: NICOTINE 14 MG/24 HOUR PATCH TD SCH (08:06)
[2016-06-16] MEDS: MONTELUKAST SODIUM 10 MG TABLET PO SCH (08:06)
[2016-06-16] MEDS: OLANZapine 7.5 MG TABLET PO SCH (20:38)
[2016-06-16] MEDS: LORazepam 2 MG TABLET PO PRN (20:58)
[2016-06-17 01:52] VITALS: BP 116/78
[2016-06-17] MEDS: OMEPRAZOLE 20 MG CAPSULE PO SCH (09:07)
[2016-06-17] MEDS: NICOTINE 14 MG/24 HOUR PATCH TD SCH (09:07)
[2016-06-17] MEDS: LevETIRAcetam 500 MG TABLET PO SCH ×2 (09:07→16:37)
[2016-06-17] MEDS: CHOLECALCIFEROL (VIT D3) 1,000 UNITS TABLET PO SCH (09:07)
[2016-06-17] MEDS: SERTRALINE HCL 100 MG TABLET PO SCH (09:07)
[2016-06-17] MEDS: MONTELUKAST SODIUM 10 MG TABLET PO SCH (09:07)
[2016-06-17 16:28] VITALS: BP 113/66
[2016-06-17] MEDS: LORazepam 2 MG TABLET PO PRN (16:50)
[2016-06-17] MEDS: OLANZapine 7.5 MG TABLET PO SCH (20:51)
[2016-06-18 00:29] VITALS: BP 111/76
[2016-06-18 08:12] VITALS: BP 114/80
[2016-06-18] MEDS: OMEPRAZOLE 20 MG CAPSULE PO SCH (08:27)
[2016-06-18] MEDS: SERTRALINE HCL 100 MG TABLET PO SCH (08:28)
[2016-06-18] MEDS: MONTELUKAST SODIUM 10 MG TABLET PO SCH (08:28)
[2016-06-18] MEDS: CHOLECALCIFEROL (VIT D3) 1,000 UNITS TABLET PO SCH (08:28)
[2016-06-18] MEDS: LevETIRAcetam 500 MG TABLET PO SCH (08:28)
[2016-06-18] MEDS: NICOTINE 14 MG/24 HOUR PATCH TD SCH (08:29)
[2016-06-18] MEDS ORDERED: VITAD1000 PO (09:45)
== END 2016-06-18 10:35 | disposition home or self-care (01) | DRG 885 ==
LOC: B2X 21:14 → EDSTATUS 21:17
DX: F25.1 Schizoaffective disorder, depressive type (principal); R45.851 Suicidal ideations; I10 Essential (primary) hypertension; J44.9 Chronic obstructive pulmonary disease, unspecified; K21.9 Gastro-esophageal reflux disease without esophagitis; D64.9 Anemia, unspecified; G40.909 Epilepsy, unspecified, not intractable, without status epilepticus; E55.9 Vitamin D deficiency, unspecified; J45.909 Unspecified asthma, uncomplicated; F10.10 Alcohol abuse, uncomplicated; F19.90 Other psychoactive substance use, unspecified, uncomplicated; Z71.51 Drug abuse counseling and surveillance of drug abuser; Z59.0 Homelessness; Z71.41 Alcohol abuse counseling and surveillance of alcoholic; Z28.21 Immunization not carried out because of patient refusal; Z91.5 Personal history of self-harm
CPT/HCPCS: 87081; 90471

== ENCOUNTER 2016-06-20 20:20 | Inpatient (IN) | payer MEDICARE, MEDICAID ==
[~2016-06-20] VITALS: Ht 180.3 cm; Wt 78.4 kg
[~2016-06-20 20:20] MED LIST changes: +VITAD1000 PO
[2016-06-20 22:21] LABS: BASOPHILS % (AUTO) 0.5 % (0.0-2.0); HEMATOCRIT 44.5 % (41-53); HEMOGLOBIN 14.8 g/dL (13.5-17.5); LYMPHOCYTES # (AUTO) 3.5 K/uL (1.0-4.8); LYMPHOCYTES % (AUTO) 32.5 % (22.0-44.0); MEAN CORPUSCULAR HEMOGLOBIN 30.3 pg (26.0-34.0); MEAN CORPUSCULAR HGB CONC 33.2 G/dL (31.0-37.0); MEAN CORPUSCULAR VOLUME 91 fL (80-100); MONOCYTES % (AUTO) 9.2 % (2.0-9.0); NEUTROPHILS # (AUTO) 6.1 K/uL (1.8-7.7); NEUTROPHILS % (AUTO) 55.8 % (40.0-70.0); PLATELET COUNT (AUTO) 217 K/uL (150-450); RED BLOOD CELL COUNT(AUTO) 4.87 MIL/uL (4.50-5.90); RED CELL DISTRIBUTION WIDTH 13.4 % (11.5-14.5); WHITE BLOOD COUNT (AUTO) 10.9 K/uL (4.5-11.0)
[2016-06-20 22:28] LABS: ANION GAP 11 mmol/L (8-16); CALCIUM, TOTAL 8.9 mg/dL (8.8-10.5); CARBON DIOXIDE 28 mmol/L (22-29); CHLORIDE 102 mmol/L (98-107); CREATININE 0.83 mg/dL (0.60-1.30); GLOMERULAR FILTR. RATE CALC > 60 mL/min (>60); POTASSIUM 3.4 mmol/L (3.5-5.1); SODIUM SERUM 141 mmol/L (136-145); UREA NITROGEN, BLOOD 7 mg/dL (7-18)
[2016-06-20 22:34] LABS: ALANINE AMINOTRANSFERASE 47 U/L (12-78); ASPARTATE AMINOTRANSFERASE 34 U/L (15-37); BILIRUBIN,TOTAL 0.4 mg/dL (0.1-1.0); TOTAL PROTEIN, SERUM 7.8 g/dL (6.4-8.2)
[2016-06-21] MEDS ORDERED: ZOLPIDEM TARTRATE 10 MG TABLET PO PRN (04:45)
[2016-06-21] MEDS ORDERED: OLANZapine 5 MG RAPDIS TABLET PO PRN (04:45)
[2016-06-21 05:26] LABS: APPEARANCE,URINE CLEAR (CLEAR); GLUCOSE, URINE (UA) NEGATIVE (NEGATIVE); KETONES,URINE NEGATIVE (NEGATIVE); LEUKOCYTE ESTERASE ,URINE NEGATIVE (NEGATIVE); OCCULT BLOOD,URINE SMALL (NEGATIVE); PROTEIN,URINE NEGATIVE (NEGATIVE)
[2016-06-21 05:30] LABS: ADD UA MICROSCOPIC YES
[2016-06-21 05:57] LABS: SQUAMOUS EPITHELIAL CELL,UR Rare /LPF (None Seen); WBC,URINE 0-2 /HPF (0-5)
[2016-06-21 06:03] VITALS: BP 110/68
[2016-06-21] MEDS ORDERED: PNEUMOCOCCAL VACCINE POLYVALENT 0.5 ML VIAL [PPSV23] IM ONE (06:45)
[2016-06-21] MEDS: SERTRALINE HCL 100 MG TABLET PO SCH (14:40)
[2016-06-21] MEDS: LORazepam 2 MG TABLET PO PRN (16:23)
[2016-06-21 16:40] VITALS: BP 140/88
[2016-06-21] MEDS ORDERED: POTASSIUM CHLORIDE 10% 40 MEQ/30 ML LIQUID UDCUP PO ONE (19:45)
[2016-06-21] MEDS: OLANZapine 5 MG RAPDIS TABLET PO SCH (20:05)
[2016-06-22 06:31] VITALS: BP 132/79
[2016-06-22] MEDS: SERTRALINE HCL 100 MG TABLET PO SCH (09:11)
[2016-06-22] MEDS: OMEPRAZOLE 20 MG CAPSULE PO SCH (09:11)
[2016-06-22] MEDS: CHOLECALCIFEROL (VIT D3) 1,000 UNITS TABLET PO SCH (09:11)
[2016-06-22] MEDS: MONTELUKAST SODIUM 10 MG TABLET PO SCH (09:11)
[2016-06-22] MEDS: LevETIRAcetam 500 MG TABLET PO SCH ×2 (09:11→17:00)
[2016-06-22] MEDS: LORazepam 2 MG TABLET PO PRN ×2 (09:44→20:35)
[2016-06-22] MEDS: OLANZapine 5 MG RAPDIS TABLET PO SCH (20:34)
[2016-06-23] VITALS: BP 133/87
[2016-06-23] MEDS: LevETIRAcetam 500 MG TABLET PO SCH ×2 (09:52→17:03)
[2016-06-23] MEDS: CHOLECALCIFEROL (VIT D3) 1,000 UNITS TABLET PO SCH (09:52)
[2016-06-23] MEDS: SERTRALINE HCL 100 MG TABLET PO SCH (09:52)
[2016-06-23] MEDS: MONTELUKAST SODIUM 10 MG TABLET PO SCH (09:52)
[2016-06-23] MEDS: LORazepam 2 MG TABLET PO PRN ×3 (09:53→17:41)
[2016-06-23] MEDS: OMEPRAZOLE 20 MG CAPSULE PO SCH (09:53)
[2016-06-23] MEDS: OLANZapine 5 MG RAPDIS TABLET PO SCH (21:02)
[2016-06-24 07:31] VITALS: BP 128/75
[2016-06-24] MEDS: OMEPRAZOLE 20 MG CAPSULE PO SCH (09:28)
[2016-06-24] MEDS: SERTRALINE HCL 100 MG TABLET PO SCH (09:28)
[2016-06-24] MEDS: LevETIRAcetam 500 MG TABLET PO SCH ×2 (09:29→16:53)
[2016-06-24] MEDS: MONTELUKAST SODIUM 10 MG TABLET PO SCH (09:29)
[2016-06-24] MEDS: LORazepam 2 MG TABLET PO PRN ×2 (09:29→16:53)
[2016-06-24] MEDS: CHOLECALCIFEROL (VIT D3) 1,000 UNITS TABLET PO SCH (09:31)
[2016-06-24 16:26] VITALS: BP 128/81
[2016-06-24] MEDS: OLANZapine 5 MG RAPDIS TABLET PO SCH (21:14)
[2016-06-25 04:09] VITALS: BP 122/83
[2016-06-25] MEDS: LORazepam 2 MG TABLET PO PRN (04:12)
[2016-06-25] MEDS: LevETIRAcetam 500 MG TABLET PO SCH (08:37)
[2016-06-25] MEDS: SERTRALINE HCL 100 MG TABLET PO SCH (08:37)
[2016-06-25] MEDS: CHOLECALCIFEROL (VIT D3) 1,000 UNITS TABLET PO SCH (08:37)
[2016-06-25] MEDS: OMEPRAZOLE 20 MG CAPSULE PO SCH (08:37)
[2016-06-25] MEDS: MONTELUKAST SODIUM 10 MG TABLET PO SCH (08:37)
[2016-08-22] MEDS ORDERED: FLUT1BLS PO (16:22)
[2016-08-22] MEDS ORDERED: MAGOX PO (16:22)
[2016-08-22] MEDS ORDERED: QUET100T PO (16:25)
== END 2016-06-25 13:10 | disposition home or self-care (01) | DRG 885 ==
LOC: EMS 20:24 → B3A 06-21 04:30 → B2S 06-21 12:51
DX: F25.1 Schizoaffective disorder, depressive type (principal); R45.851 Suicidal ideations; J44.9 Chronic obstructive pulmonary disease, unspecified; K21.9 Gastro-esophageal reflux disease without esophagitis; F17.210 Nicotine dependence, cigarettes, uncomplicated; I10 Essential (primary) hypertension; G40.909 Epilepsy, unspecified, not intractable, without status epilepticus; D64.9 Anemia, unspecified; J45.909 Unspecified asthma, uncomplicated; Y90.0 Blood alcohol level of less than 20 mg/100 ml; F10.10 Alcohol abuse, uncomplicated; F19.10 Other psychoactive substance abuse, uncomplicated; Z71.51 Drug abuse counseling and surveillance of drug abuser; Z79.899 Other long term (current) drug therapy; Z28.21 Immunization not carried out because of patient refusal
CPT/HCPCS: 84132; 87081; 99285; G0480

== ENCOUNTER 2016-06-27 22:43 | Inpatient (IN) | payer MEDICARE, MEDICAID ==
[~2016-06-27] VITALS: Ht 180.3 cm; Wt 77.6 kg
[2016-06-27] MEDS ORDERED: HALOPERIDOL 5 MG TABLET PO PRN (23:00)
[2016-06-27] MEDS ORDERED: LORazepam 2 MG TABLET PO PRN (23:00)
[2016-06-27] MEDS ORDERED: ZOLPIDEM TARTRATE 10 MG TABLET PO PRN (23:00)
[2016-06-27 23:27] VITALS: BP 147/97
[2016-06-28] MEDS ORDERED: PNEUMOCOCCAL VACCINE POLYVALENT 0.5 ML VIAL [PPSV23] IM ONE (00:15)
[2016-06-28 00:37] VITALS: BP 106/64
[2016-06-28] MEDS: SERTRALINE HCL 100 MG TABLET PO SCH (09:19)
[2016-06-28] MEDS: NICOTINE 14 MG/24 HOUR PATCH TD SCH (09:19)
[2016-06-28] MEDS: OLANZapine 5 MG RAPDIS TABLET PO SCH (20:31)
[2016-06-29] MEDS: SERTRALINE HCL 100 MG TABLET PO SCH (08:50)
[2016-06-29] MEDS: NICOTINE 14 MG/24 HOUR PATCH TD SCH (08:52)
[2016-06-29 16:16] VITALS: BP 123/83
[2016-06-29 19:50] VITALS: BP 116/78
[2016-06-29] MEDS: ACETAMINOPHEN 325 MG TABLET PO PRN (19:50)
[2016-06-29] MEDS: OLANZapine 5 MG RAPDIS TABLET PO SCH (20:13)
[2016-06-30] MEDS: NICOTINE 14 MG/24 HOUR PATCH TD SCH (09:19)
[2016-06-30] MEDS: SERTRALINE HCL 100 MG TABLET PO SCH (09:19)
[2016-06-30 09:26] VITALS: BP 122/78
[2016-06-30] MEDS: ACETAMINOPHEN 325 MG TABLET PO PRN (09:26)
[2016-06-30 16:11] VITALS: BP 114/60
[2016-06-30] MEDS: OLANZapine 5 MG RAPDIS TABLET PO SCH (20:35)
[2016-07-01] MEDS: SERTRALINE HCL 100 MG TABLET PO SCH (09:11)
[2016-07-01] MEDS: NICOTINE 14 MG/24 HOUR PATCH TD SCH (09:12)
[2016-07-01 16:04] VITALS: BP 122/80
[2016-07-01] MEDS: OLANZapine 5 MG RAPDIS TABLET PO SCH (20:43)
[2016-07-02 08:15] VITALS: BP 121/85
[2016-07-02] MEDS: SERTRALINE HCL 100 MG TABLET PO SCH (08:38)
[2016-07-02] MEDS: NICOTINE 14 MG/24 HOUR PATCH TD SCH (09:36)
[2016-07-02] MEDS: ACETAMINOPHEN 325 MG TABLET PO PRN (12:27)
[2016-07-02] MEDS: OLANZapine 5 MG RAPDIS TABLET PO SCH (21:31)
[2016-07-03] MEDS: NICOTINE 14 MG/24 HOUR PATCH TD SCH (08:10)
[2016-07-03] MEDS: SERTRALINE HCL 100 MG TABLET PO SCH (08:10)
[2016-07-03 08:11] VITALS: BP 116/70
[2016-07-03] MEDS: OLANZapine 5 MG RAPDIS TABLET PO SCH (20:50)
[2016-07-04 02:24] VITALS: BP 122/87
[2016-07-04] MEDS: SERTRALINE HCL 100 MG TABLET PO SCH (08:45)
[2016-07-04] MEDS: NICOTINE 14 MG/24 HOUR PATCH TD SCH (08:46)
[2016-07-04 16:09] VITALS: BP 109/75
[2016-07-04] MEDS: OLANZapine 5 MG RAPDIS TABLET PO SCH (20:34)
[2016-07-05 08:08] VITALS: BP 101/60
[2016-07-05] MEDS: SERTRALINE HCL 100 MG TABLET PO SCH (08:20)
[2016-07-05] MEDS: NICOTINE 14 MG/24 HOUR PATCH TD SCH (08:20)
[2016-07-05 16:08] VITALS: BP 110/71
[2016-07-05] MEDS: ACETAMINOPHEN 325 MG TABLET PO PRN (16:10)
[2016-07-05] MEDS: OLANZapine 5 MG RAPDIS TABLET PO SCH (20:43)
[2016-07-06] MEDS: NICOTINE 14 MG/24 HOUR PATCH TD SCH (09:10)
[2016-07-06] MEDS: SERTRALINE HCL 100 MG TABLET PO SCH (09:10)
[2016-07-06 09:31] VITALS: BP 123/83
[2016-08-22] MEDS ORDERED: FLUT1BLS PO (16:22)
[2016-08-22] MEDS ORDERED: MAGOX PO (16:22)
[2016-08-22] MEDS ORDERED: QUET100T PO (16:25)
== END 2016-07-06 12:05 | disposition home or self-care (01) | DRG 885 ==
LOC: B2X 23:03 → EDSTATUS 23:09 → B2X 06-29 15:44
PROC: 3E0234Z Introduction of Serum, Toxoid and Vaccine into Muscle, Percutaneous Approach (ICD-10-PCS; principal; 2016-06-28)
DX: F25.1 Schizoaffective disorder, depressive type (principal); R45.851 Suicidal ideations; I10 Essential (primary) hypertension; J44.9 Chronic obstructive pulmonary disease, unspecified; K21.9 Gastro-esophageal reflux disease without esophagitis; G40.909 Epilepsy, unspecified, not intractable, without status epilepticus; D64.9 Anemia, unspecified; J45.909 Unspecified asthma, uncomplicated; F19.10 Other psychoactive substance abuse, uncomplicated; F10.10 Alcohol abuse, uncomplicated; Z53.29 Procedure and treatment not carried out because of patient's decision for other reasons; Z79.899 Other long term (current) drug therapy
CPT/HCPCS: 87081

== ENCOUNTER 2016-07-27 20:10 | Emergency (ER) | payer MEDICARE, OTHER ==
[~2016-07-27] VITALS: Ht 177.8 cm; Wt 81.8 kg
[2016-07-27 20:41] LABS: BASOPHILS % (AUTO) 0.4 % (0.0-2.0); EOSINOPHILS % (AUTO) 0.7 % (1.0-6.0); HEMOGLOBIN 12.8 g/dL (13.5-17.5); LYMPHOCYTES # (AUTO) 2.6 K/uL (1.0-4.8); LYMPHOCYTES % (AUTO) 19.1 % (22.0-44.0); MEAN CORPUSCULAR HEMOGLOBIN 30.1 pg (26.0-34.0); MEAN CORPUSCULAR HGB CONC 32.7 G/dL (31.0-37.0); MEAN CORPUSCULAR VOLUME 92 fL (80-100); MONOCYTES # (AUTO) 0.8 K/uL (0.1-1.0); MONOCYTES % (AUTO) 6.2 % (2.0-9.0); NEUTROPHILS # (AUTO) 9.9 K/uL (1.8-7.7); NEUTROPHILS % (AUTO) 73.6 % (40.0-70.0); PLATELET COUNT (AUTO) 240 K/uL (150-450); RED BLOOD CELL COUNT(AUTO) 4.24 MIL/uL (4.50-5.90); RED CELL DISTRIBUTION WIDTH 14.1 % (11.5-14.5); WHITE BLOOD COUNT (AUTO) 13.5 K/uL (4.5-11.0)
[2016-07-27 20:48] LABS: ANION GAP 10 mmol/L (8-16); CALCIUM, TOTAL 8.7 mg/dL (8.8-10.5); CARBON DIOXIDE 27 mmol/L (22-29); CHLORIDE 101 mmol/L (98-107); CREATININE 1.03 mg/dL (0.60-1.30); GLOMERULAR FILTR. RATE CALC > 60 mL/min (>60); POTASSIUM 3.3 mmol/L (3.5-5.1); SODIUM SERUM 138 mmol/L (136-145); UREA NITROGEN, BLOOD 8 mg/dL (7-18)
[2016-07-27 20:53] LABS: ALANINE AMINOTRANSFERASE 20 U/L (12-78); ALBUMIN 3.2 g/dL (3.4-5.0); ASPARTATE AMINOTRANSFERASE 13 U/L (15-37); BILIRUBIN,TOTAL 0.5 mg/dL (0.1-1.0); TOTAL PROTEIN, SERUM 6.9 g/dL (6.4-8.2)
[2016-07-27 21:07] LABS: APPEARANCE,URINE CLEAR (CLEAR); GLUCOSE, URINE (UA) NEGATIVE (NEGATIVE); KETONES,URINE NEGATIVE (NEGATIVE); LEUKOCYTE ESTERASE ,URINE NEGATIVE (NEGATIVE); PROTEIN,URINE NEGATIVE (NEGATIVE)
[2016-07-27 21:11] LABS: ADD UA MICROSCOPIC NO; OCCULT BLOOD,URINE NEGATIVE (NEGATIVE)
[2016-07-27] MEDS ORDERED: IBUPROFEN 600 MG TABLET PO ONE (21:30)
[2016-07-27] MEDS ORDERED: POTASSIUM CHLORIDE 20 MEQ ER TABLET PO ONE (21:30)
[2016-07-27 21:44] VITALS: BP 135/81
== END 2016-07-27 22:03 | disposition home or self-care (01) ==
LOC: EMS 20:13
DX: R35.0 Frequency of micturition (principal); F25.9 Schizoaffective disorder, unspecified; F31.9 Bipolar disorder, unspecified; J44.9 Chronic obstructive pulmonary disease, unspecified; K21.9 Gastro-esophageal reflux disease without esophagitis; F17.210 Nicotine dependence, cigarettes, uncomplicated
CPT/HCPCS: 36415; 80053; 80307; 81003; 85025; 99284; G0480

== ENCOUNTER 2016-08-29 22:40 | Emergency (ER) | payer MEDICARE, OTHER ==
[~2016-08-29] VITALS: Ht 177.8 cm; Wt 84.0 kg
[~2016-08-29 22:40] MED LIST changes: +FLUT1BLS PO; +MAGOX PO; -OLAN5Z PO; +QUET100T PO; -SERT100T12 PO
[2016-08-29 22:45] VITALS: BP 125/80
[2016-08-29 23:48] LABS: BASOPHILS % (AUTO) 1.2 % (0.0-2.0); EOSINOPHILS % (AUTO) 3.4 % (1.0-6.0); HEMATOCRIT 43.3 % (41-53); HEMOGLOBIN 14.7 g/dL (13.5-17.5); LYMPHOCYTES # (AUTO) 2.9 K/uL (1.0-4.8); LYMPHOCYTES % (AUTO) 35.2 % (22.0-44.0); MEAN CORPUSCULAR HEMOGLOBIN 31.3 pg (26.0-34.0); MEAN CORPUSCULAR VOLUME 92 fL (80-100); MONOCYTES # (AUTO) 0.5 K/uL (0.1-1.0); MONOCYTES % (AUTO) 6.5 % (2.0-9.0); NEUTROPHILS # (AUTO) 4.4 K/uL (1.8-7.7); NEUTROPHILS % (AUTO) 53.7 % (40.0-70.0); PLATELET COUNT (AUTO) 235 K/uL (150-450); RED BLOOD CELL COUNT(AUTO) 4.69 MIL/uL (4.50-5.90); RED CELL DISTRIBUTION WIDTH 14.7 % (11.5-14.5); WHITE BLOOD COUNT (AUTO) 8.3 K/uL (4.5-11.0)
[2016-08-29 23:55] LABS: ANION GAP 6 mmol/L (8-16); CALCIUM, TOTAL 8.7 mg/dL (8.8-10.5); CARBON DIOXIDE 29 mmol/L (22-29); CHLORIDE 105 mmol/L (98-107); CREATININE 0.94 mg/dL (0.60-1.30); GLOMERULAR FILTR. RATE CALC > 60 mL/min (>60); POTASSIUM 3.8 mmol/L (3.5-5.1); SODIUM SERUM 140 mmol/L (136-145); UREA NITROGEN, BLOOD 6 mg/dL (7-18)
[2016-08-30] LABS: ALANINE AMINOTRANSFERASE 27 U/L (12-78); ALBUMIN 3.9 g/dL (3.4-5.0); ASPARTATE AMINOTRANSFERASE 19 U/L (15-37); BILIRUBIN,TOTAL 0.2 mg/dL (0.1-1.0); TOTAL PROTEIN, SERUM 7.4 g/dL (6.4-8.2)
== END 2016-08-30 00:35 | disposition left against medical advice (07) ==
LOC: EMS 22:42 → EEVIPCON 22:42 → EMS 08-30 00:35
DX: F29 Unspecified psychosis not due to a substance or known physiological condition (principal); F20.9 Schizophrenia, unspecified; F31.9 Bipolar disorder, unspecified; J44.9 Chronic obstructive pulmonary disease, unspecified; K21.9 Gastro-esophageal reflux disease without esophagitis; F17.210 Nicotine dependence, cigarettes, uncomplicated
CPT/HCPCS: 36415; 80053; 85025; 99284; G0480

== ENCOUNTER 2016-11-16 21:27 | Inpatient (IN) | payer MEDICARE, MEDICAID ==
[~2016-11-16] VITALS: Ht 170.2 cm; Wt 81.5 kg
[~2016-11-16 21:27] MED LIST changes: +DIVA500T35 PO; -FLUT1BLS PO; +GABA-531 PO; -MAGOX PO; -MONT10TA21 PO; +NALT50TA6 PO; -OMEP20 PO; -QUET100T PO; +QUET100T33 PO; +SIMV-261 PO; -VITAD1000 PO
[2016-11-17] MEDS ORDERED: ZOLPIDEM TARTRATE 10 MG TABLET PO PRN (01:15)
[2016-11-17] MEDS ORDERED: OLANZapine 5 MG RAPDIS TABLET PO PRN (01:15)
[2016-11-17] MEDS ORDERED: LORazepam 1 MG TABLET PO PRN ×2 (01:15→13:30)
[2016-11-17 03:04] VITALS: BP 145/83
[2016-11-17] MEDS ORDERED: PNEUMOCOCCAL VACCINE POLYVALENT 0.5 ML VIAL [PPSV23] IM ONE (03:45)
[2016-11-17 08:02] LABS: APPEARANCE,URINE CLEAR (CLEAR); GLUCOSE, URINE (UA) NEGATIVE (NEGATIVE); KETONES,URINE NEGATIVE (NEGATIVE); LEUKOCYTE ESTERASE ,URINE NEGATIVE (NEGATIVE); OCCULT BLOOD,URINE NEGATIVE (NEGATIVE); PROTEIN,URINE NEGATIVE (NEGATIVE)
[2016-11-17 08:04] LABS: ADD UA MICROSCOPIC NO
[2016-11-17] MEDS: NICOTINE 14 MG/24 HOUR PATCH TD SCH (09:00)
[2016-11-17] MEDS ORDERED: IPRA4AER IH (09:36)
[2016-11-17] MEDS ORDERED: LORA2TAB2 PO (09:36)
[2016-11-17] MEDS ORDERED: FOLI1 PO (09:36)
[2016-11-17] MEDS ORDERED: CARB15DR61 AD (09:36)
[2016-11-17] MEDS ORDERED: multivit PO (09:36)
[2016-11-17] MEDS ORDERED: VIT B PO (09:36)
[2016-11-17] MEDS ORDERED: BUDE10.2 IH (09:37)
[2016-11-17] MEDS: LevETIRAcetam 500 MG TABLET PO SCH ×2 (12:50→20:30)
[2016-11-17] MEDS: QUEtiapine FUMARATE 100 MG TABLET PO SCH (16:35)
[2016-11-17] MEDS: GABAPENTIN 300 MG CAPSULE PO SCH ×2 (16:35→21:00)
[2016-11-17] MEDS ORDERED: LevETIRAcetam 500 MG TABLET PO SCH (17:00)
[2016-11-17] MEDS: DIVALPROEX SODIUM 500 MG DR TABLET PO SCH (21:00)
[2016-11-18 08:46] VITALS: BP 109/67
[2016-11-18] MEDS: NICOTINE 14 MG/24 HOUR PATCH TD SCH (09:00)
[2016-11-18] MEDS: GABAPENTIN 300 MG CAPSULE PO SCH ×4 (09:15→21:00)
[2016-11-18] MEDS: LevETIRAcetam 500 MG TABLET PO SCH ×2 (09:15→16:34)
[2016-11-18] MEDS: QUEtiapine FUMARATE 100 MG TABLET PO SCH ×2 (09:15→20:03)
[2016-11-18 16:26] VITALS: BP 121/79
[2016-11-18] MEDS: SIMVASTATIN 40 MG TABLET PO SCH (21:11)
[2016-11-18] MEDS: DIVALPROEX SODIUM 500 MG DR TABLET PO SCH (21:12)
[2016-11-19] MEDS: NICOTINE 14 MG/24 HOUR PATCH TD SCH (09:00)
[2016-11-19] MEDS: GABAPENTIN 300 MG CAPSULE PO SCH ×4 (09:10→20:45)
[2016-11-19] MEDS: QUEtiapine FUMARATE 100 MG TABLET PO SCH ×2 (09:10→16:46)
[2016-11-19] MEDS: LevETIRAcetam 500 MG TABLET PO SCH ×2 (09:10→16:37)
[2016-11-19] MEDS ORDERED: PROMETHAZINE HCL 25 MG TABLET PO PRN (14:30)
[2016-11-19] MEDS ORDERED: GuaiFENesin/D-METHORPHAN [SUGAR-FREE] 200-20MG/10 ML SYRUP UDCUP PO PRN (14:30)
[2016-11-19] MEDS ORDERED: MAG HYDROX/AL HYDROX/SIMETH ES 30 ML SUSPENSION UDCUP PO PRN (14:30)
[2016-11-19] MEDS ORDERED: MAGNESIUM HYDROXIDE SUSPENSION 30 ML UDCUP PO PRN (14:30)
[2016-11-19] MEDS ORDERED: HydrOXYzine PAMOATE 50 MG CAPSULE PO PRN (14:30)
[2016-11-19] MEDS ORDERED: LOPERAMIDE HCL 2 MG CAPSULE PO PRN (14:30)
[2016-11-19] MEDS ORDERED: ACETAMINOPHEN 325 MG TABLET PO PRN (14:30)
[2016-11-19] MEDS ORDERED: MULT1TAB70 PO (14:35)
[2016-11-19] MEDS ORDERED: THIA100 PO (14:35)
[2016-11-19 16:17] VITALS: BP 118/68
[2016-11-19] MEDS: THIAMINE HCL 100 MG TABLET PO SCH (16:37)
[2016-11-19] MEDS: DIVALPROEX SODIUM 500 MG DR TABLET PO SCH (20:45)
[2016-11-19] MEDS: SIMVASTATIN 40 MG TABLET PO SCH (20:45)
[2016-11-20 08:12] VITALS: BP 128/72
[2016-11-20] MEDS: QUEtiapine FUMARATE 100 MG TABLET PO SCH ×2 (08:35→17:00)
[2016-11-20] MEDS: FOLIC ACID 1 MG TABLET PO SCH (08:35)
[2016-11-20] MEDS: THIAMINE HCL 100 MG TABLET PO SCH ×2 (08:35→17:24)
[2016-11-20] MEDS: MULTIVITAMINS WITH MINERALS, THERAPEUTIC TABLET PO SCH (08:35)
[2016-11-20] MEDS: GABAPENTIN 300 MG CAPSULE PO SCH ×4 (08:35→21:00)
[2016-11-20] MEDS: LevETIRAcetam 500 MG TABLET PO SCH ×2 (08:35→16:36)
[2016-11-20] MEDS: NICOTINE 14 MG/24 HOUR PATCH TD SCH (08:43)
[2016-11-20 16:14] VITALS: BP 118/85
[2016-11-20] MEDS: SIMVASTATIN 40 MG TABLET PO SCH (21:00)
[2016-11-20] MEDS: DIVALPROEX SODIUM 500 MG DR TABLET PO SCH (21:05)
[2016-11-21 01:38] VITALS: BP 124/83
[2016-11-21 08:34] VITALS: BP 110/65
[2016-11-21] MEDS: NICOTINE 14 MG/24 HOUR PATCH TD SCH (09:00)
[2016-11-21] MEDS: GABAPENTIN 300 MG CAPSULE PO SCH ×4 (09:00→20:53)
[2016-11-21] MEDS: QUEtiapine FUMARATE 100 MG TABLET PO SCH ×2 (09:00→16:42)
[2016-11-21] MEDS: FOLIC ACID 1 MG TABLET PO SCH (10:08)
[2016-11-21] MEDS: LevETIRAcetam 500 MG TABLET PO SCH ×2 (10:08→16:43)
[2016-11-21] MEDS: MULTIVITAMINS WITH MINERALS, THERAPEUTIC TABLET PO SCH (10:09)
[2016-11-21] MEDS: THIAMINE HCL 100 MG TABLET PO SCH ×2 (10:09→16:42)
[2016-11-21 16:16] VITALS: BP 126/74
[2016-11-21] MEDS: DIVALPROEX SODIUM 500 MG DR TABLET PO SCH (20:53)
[2016-11-21] MEDS: SIMVASTATIN 40 MG TABLET PO SCH (20:53)
[2016-11-22] MEDS: NICOTINE 14 MG/24 HOUR PATCH TD SCH (09:06)
[2016-11-22] MEDS: MULTIVITAMINS WITH MINERALS, THERAPEUTIC TABLET PO SCH (09:06)
[2016-11-22] MEDS: SERTRALINE HCL 50 MG TABLET PO SCH (09:06)
[2016-11-22] MEDS: GABAPENTIN 300 MG CAPSULE PO SCH ×3 (09:09→17:00)
[2016-11-22] MEDS: THIAMINE HCL 100 MG TABLET PO SCH ×2 (09:09→17:31)
[2016-11-22] MEDS: FOLIC ACID 1 MG TABLET PO SCH (09:09)
[2016-11-22] MEDS: LevETIRAcetam 500 MG TABLET PO SCH ×2 (09:09→17:31)
[2016-11-22] MEDS: QUEtiapine FUMARATE 100 MG TABLET PO SCH ×2 (09:09→17:31)
[2016-11-22 16:08] VITALS: BP 105/65
[2016-11-22] MEDS: OLANZapine 5 MG TABLET PO SCH (20:47)
[2016-11-22] MEDS: SIMVASTATIN 40 MG TABLET PO SCH (20:48)
[2016-11-23 07:13] VITALS: BP 108/64
[2016-11-23 08:28] VITALS: BP 124/60
[2016-11-23] MEDS: FOLIC ACID 1 MG TABLET PO SCH (08:36)
[2016-11-23] MEDS: SERTRALINE HCL 50 MG TABLET PO SCH (08:36)
[2016-11-23] MEDS: THIAMINE HCL 100 MG TABLET PO SCH ×2 (08:36→16:41)
[2016-11-23] MEDS: MULTIVITAMINS WITH MINERALS, THERAPEUTIC TABLET PO SCH (08:37)
[2016-11-23] MEDS: LevETIRAcetam 500 MG TABLET PO SCH ×2 (08:37→16:41)
[2016-11-23] MEDS: NICOTINE 14 MG/24 HOUR PATCH TD SCH (08:38)
[2016-11-23] MEDS: BENZOCAINE/MENTHOL LOZENGE PO PRN ×2 (17:42→22:33)
[2016-11-23] MEDS: OLANZapine 5 MG TABLET PO SCH (20:37)
[2016-11-23] MEDS: SIMVASTATIN 40 MG TABLET PO SCH (20:37)
[2016-11-24] MEDS: LevETIRAcetam 500 MG TABLET PO SCH ×2 (08:24→16:20)
[2016-11-24] MEDS: THIAMINE HCL 100 MG TABLET PO SCH ×2 (08:24→16:20)
[2016-11-24] MEDS: FOLIC ACID 1 MG TABLET PO SCH (08:24)
[2016-11-24] MEDS: SERTRALINE HCL 50 MG TABLET PO SCH (08:24)
[2016-11-24] MEDS: MULTIVITAMINS WITH MINERALS, THERAPEUTIC TABLET PO SCH (08:24)
[2016-11-24] MEDS: NICOTINE 14 MG/24 HOUR PATCH TD SCH (08:40)
[2016-11-24] MEDS: BENZOCAINE/MENTHOL LOZENGE PO PRN ×2 (16:00→21:14)
[2016-11-24 16:19] VITALS: BP 121/68
[2016-11-24] MEDS: SIMVASTATIN 40 MG TABLET PO SCH (20:22)
[2016-11-24] MEDS: OLANZapine 5 MG TABLET PO SCH (20:23)
[2016-11-25] MEDS: SERTRALINE HCL 50 MG TABLET PO SCH (09:02)
[2016-11-25] MEDS: FOLIC ACID 1 MG TABLET PO SCH (09:03)
[2016-11-25] MEDS: NICOTINE 14 MG/24 HOUR PATCH TD SCH (09:03)
[2016-11-25] MEDS: LevETIRAcetam 500 MG TABLET PO SCH ×2 (09:03→16:42)
[2016-11-25] MEDS: THIAMINE HCL 100 MG TABLET PO SCH ×2 (09:03→16:42)
[2016-11-25] MEDS: MULTIVITAMINS WITH MINERALS, THERAPEUTIC TABLET PO SCH (09:03)
[2016-11-25 16:39] VITALS: BP 122/69
[2016-11-25] MEDS: BENZOCAINE/MENTHOL LOZENGE PO PRN (17:51)
[2016-11-25] MEDS: SIMVASTATIN 40 MG TABLET PO SCH (20:43)
[2016-11-25] MEDS: OLANZapine 5 MG TABLET PO SCH (20:43)
[2016-11-26] MEDS: BENZOCAINE/MENTHOL LOZENGE PO PRN (03:01)
[2016-11-26] MEDS: MULTIVITAMINS WITH MINERALS, THERAPEUTIC TABLET PO SCH (08:22)
[2016-11-26] MEDS: LevETIRAcetam 500 MG TABLET PO SCH (08:22)
[2016-11-26] MEDS: THIAMINE HCL 100 MG TABLET PO SCH (08:22)
[2016-11-26] MEDS: FOLIC ACID 1 MG TABLET PO SCH (08:22)
[2016-11-26] MEDS: SERTRALINE HCL 50 MG TABLET PO SCH (08:23)
[2016-11-26] MEDS: NICOTINE 14 MG/24 HOUR PATCH TD SCH (08:25)
[2016-11-26] MEDS ORDERED: OLANZapine 10 MG RAPDIS TABLET PO PRN (13:15)
[2016-11-26] MEDS ORDERED: SERT50TA12 PO (15:21)
[2016-11-26] MEDS ORDERED: OLAN10TA3 PO (15:21)
[2016-11-27] MEDS ORDERED: SERTRALINE HCL 50 MG TABLET PO SCH (09:00)
== END 2016-11-26 17:15 | disposition home or self-care (01) | DRG 885 ==
LOC: B2X 11-17 01:30
PROVIDERS: ADMIT Psychiatry & Neurology Psychiatry; ATTEND Psychiatry & Neurology Psychiatry
DX: F25.0 Schizoaffective disorder, bipolar type (principal); R45.851 Suicidal ideations; Z59.0 Homelessness; E78.5 Hyperlipidemia, unspecified; F17.200 Nicotine dependence, unspecified, uncomplicated; F10.20 Alcohol dependence, uncomplicated; F41.9 Anxiety disorder, unspecified; K21.9 Gastro-esophageal reflux disease without esophagitis; Z79.899 Other long term (current) drug therapy; Z91.5 Personal history of self-harm
CPT/HCPCS: 80307; 87081

== ENCOUNTER 2016-12-03 17:23 | Inpatient (IN) | payer MEDICARE, MEDICAID ==
[~2016-12-03] VITALS: Ht 180.3 cm; Wt 85.8 kg
[~2016-12-03 17:23] MED LIST changes: -DIVA500T35 PO; -GABA-531 PO; -LEVE500T53 PO; -NALT50TA6 PO; +OLAN10TA3 PO; -QUET100T33 PO; +SERT50TA12 PO
[2016-12-03] MEDS ORDERED: LOPERAMIDE HCL 2 MG CAPSULE PO PRN (17:45)
[2016-12-03] MEDS ORDERED: LORazepam 2 MG TABLET PO PRN ×2 (17:45)
[2016-12-03] MEDS ORDERED: CYANOCOBALAMIN 1,000 MCG/ML VIAL IM ONE (17:45)
[2016-12-03] MEDS ORDERED: ZOLPIDEM TARTRATE 10 MG TABLET PO PRN (17:45)
[2016-12-03] MEDS ORDERED: GuaiFENesin/D-METHORPHAN [SUGAR-FREE] 200-20MG/10 ML SYRUP UDCUP PO PRN (17:45)
[2016-12-03] MEDS ORDERED: QUEtiapine FUMARATE 100 MG TABLET PO PRN (17:45)
[2016-12-03] MEDS ORDERED: HydrOXYzine PAMOATE 50 MG CAPSULE PO PRN (17:45)
[2016-12-03] MEDS ORDERED: INFLUENZA VIRUS VACCINE QVS 2017-18 (3YR+)/PF 60 MCG/0.5 ML SYRINGE IM ONE (18:00)
[2016-12-03] MEDS ORDERED: PNEUMOCOCCAL VACCINE POLYVALENT 0.5 ML VIAL [PPSV23] IM ONE (18:00)
[2016-12-03 18:05] VITALS: BP 135/88
[2016-12-03] MEDS: THIAMINE HCL 100 MG TABLET PO SCH (18:17)
[2016-12-03 19:14] VITALS: BP 135/91
[2016-12-03] MEDS: OLANZapine 10 MG TABLET PO SCH (20:28)
[2016-12-03 22:45] VITALS: BP 128/88
[2016-12-04] MEDS ORDERED: LORazepam 2 MG TABLET PO PRN (07:00)
[2016-12-04] MEDS ORDERED: LORazepam 2 MG TABLET PO SCH (09:00)
[2016-12-04] MEDS: MULTIVITAMINS WITH MINERALS, THERAPEUTIC TABLET PO SCH (10:08)
[2016-12-04] MEDS: LevETIRAcetam 500 MG TABLET PO SCH ×2 (10:08→17:08)
[2016-12-04] MEDS: SERTRALINE HCL 50 MG TABLET PO SCH (10:08)
[2016-12-04] MEDS: THIAMINE HCL 100 MG TABLET PO SCH ×2 (10:08→17:08)
[2016-12-04] MEDS: CloNIDine HCL 0.1 MG TABLET PO SCH ×2 (10:08→17:08)
[2016-12-04] MEDS: FOLIC ACID 1 MG TABLET PO SCH (10:08)
[2016-12-04] MEDS ORDERED: ACETAMINOPHEN 325 MG TABLET PO PRN (12:00)
[2016-12-04] MEDS ORDERED: LOPERAMIDE HCL 2 MG CAPSULE PO PRN (12:00)
[2016-12-04] MEDS ORDERED: HydrOXYzine PAMOATE 50 MG CAPSULE PO PRN (12:00)
[2016-12-04] MEDS ORDERED: MAG HYDROX/AL HYDROX/SIMETH ES 30 ML SUSPENSION UDCUP PO PRN (12:00)
[2016-12-04] MEDS ORDERED: GuaiFENesin/D-METHORPHAN [SUGAR-FREE] 200-20MG/10 ML SYRUP UDCUP PO PRN (12:00)
[2016-12-04] MEDS ORDERED: MAGNESIUM HYDROXIDE SUSPENSION 30 ML UDCUP PO PRN (12:00)
[2016-12-04] MEDS ORDERED: DIAZEPAM 10 MG TABLET PO PRN (12:45)
[2016-12-04] MEDS ORDERED: OLANZapine 5 MG RAPDIS TABLET PO PRN (13:00)
[2016-12-04] MEDS ORDERED: THIAMINE HCL 100 MG TABLET PO SCH (17:00)
[2016-12-04 17:09] VITALS: BP 119/72
[2016-12-04] MEDS: OLANZapine 10 MG TABLET PO SCH (20:36)
[2016-12-04] MEDS ORDERED: SIMVASTATIN 40 MG TABLET PO SCH (21:00)
[2016-12-05] MEDS ORDERED: DIAZEPAM 10 MG TABLET PO PRN (07:00)
[2016-12-05] MEDS ORDERED: NALTREXONE HCL 50 MG TABLET PO SCH (09:00)
[2016-12-05] MEDS ORDERED: MULTIVITAMINS WITH MINERALS, THERAPEUTIC TABLET PO SCH (09:00)
[2016-12-05] MEDS ORDERED: FOLIC ACID 1 MG TABLET PO SCH (09:00)
[2016-12-05 10:30] VITALS: BP 135/88
[2016-12-05] MEDS: MULTIVITAMINS WITH MINERALS, THERAPEUTIC TABLET PO SCH (10:30)
[2016-12-05] MEDS: SERTRALINE HCL 50 MG TABLET PO SCH (10:30)
[2016-12-05] MEDS: THIAMINE HCL 100 MG TABLET PO SCH (10:30)
[2016-12-05] MEDS: LevETIRAcetam 500 MG TABLET PO SCH (10:30)
[2016-12-05] MEDS: DIAZEPAM 10 MG TABLET PO SCH ×2 (10:31→13:21)
[2016-12-05] MEDS: CloNIDine HCL 0.1 MG TABLET PO SCH (10:31)
[2016-12-05] MEDS: FOLIC ACID 1 MG TABLET PO SCH (10:31)
[2016-12-05] MEDS ORDERED: SERT50TA12 PO (13:48)
[2016-12-05] MEDS ORDERED: NALT50TA PO (13:48)
[2016-12-05] MEDS ORDERED: OLAN10TA20 PO (13:48)
[2016-12-05] MEDS ORDERED: LEVE500T53 PO (13:48)
[2016-12-06] MEDS ORDERED: LORazepam 1 MG TABLET PO PRN (07:00)
[2016-12-06] MEDS ORDERED: LORazepam 1 MG TABLET PO SCH (09:00)
[2016-12-07] MEDS ORDERED: LORazepam 1 MG TABLET PO PRN (07:00)
[2016-12-07] MEDS ORDERED: DIAZEPAM 5 MG TABLET PO PRN (07:00)
[2016-12-07] MEDS ORDERED: DIAZEPAM 5 MG TABLET PO SCH (09:00)
[2016-12-08] MEDS ORDERED: DIAZEPAM 5 MG TABLET PO PRN (07:00)
== END 2016-12-05 15:40 | disposition home or self-care (01) | DRG 885 ==
LOC: B2X 17:48
PROVIDERS: ADMIT Psychiatry & Neurology Psychiatry; ATTEND Psychiatry & Neurology Psychiatry
DX: F25.0 Schizoaffective disorder, bipolar type (principal); R45.851 Suicidal ideations; G40.909 Epilepsy, unspecified, not intractable, without status epilepticus; F10.20 Alcohol dependence, uncomplicated; F17.200 Nicotine dependence, unspecified, uncomplicated; E78.5 Hyperlipidemia, unspecified; J44.9 Chronic obstructive pulmonary disease, unspecified; I10 Essential (primary) hypertension; Z59.0 Homelessness; Z65.3 Problems related to other legal circumstances; Z91.19 Patient's noncompliance with other medical treatment and regimen; Z79.899 Other long term (current) drug therapy
CPT/HCPCS: 87081; J3420

== ENCOUNTER 2016-12-08 03:14 | Inpatient (IN) | payer MEDICARE, MEDICAID ==
[~2016-12-08] VITALS: Ht 180.3 cm; Wt 83.7 kg
[~2016-12-08 03:14] MED LIST changes: +LEVE500T53 PO; +NALT50TA PO; +OLAN10TA20 PO; -OLAN10TA3 PO; -SIMV-261 PO
[2016-12-08] MEDS ORDERED: ZOLPIDEM TARTRATE 10 MG TABLET PO PRN (04:15)
[2016-12-08] MEDS ORDERED: QUEtiapine FUMARATE 100 MG TABLET PO PRN (04:15)
[2016-12-08] MEDS ORDERED: LORazepam 1 MG TABLET PO PRN (04:15)
[2016-12-08 04:17] LABS: BASOPHILS # (AUTO) 0.03 K/uL (0.00-0.20); BASOPHILS % (AUTO) 0.4 % (0.0-2.0); EOSINOPHILS # (AUTO) 0.22 K/uL (0.00-0.70); EOSINOPHILS % (AUTO) 2.76 % (1.0-6.0); HEMATOCRIT 44.2 % (41-53); HEMOGLOBIN 14.8 g/dL (13.5-17.5); LYMPHOCYTES # (AUTO) 2.7 K/uL (1.0-4.8); LYMPHOCYTES % (AUTO) 33.5 % (22.0-44.0); MEAN CORPUSCULAR HEMOGLOBIN 30.5 pg (26.0-34.0); MEAN CORPUSCULAR HGB CONC 33.5 G/dL (31.0-37.0); MEAN CORPUSCULAR VOLUME 91 fL (80-100); MONOCYTES # (AUTO) 0.4 K/uL (0.1-1.0); MONOCYTES % (AUTO) 5.3 % (2.0-9.0); NEUTROPHILS # (AUTO) 4.7 K/uL (1.8-7.7); PLATELET COUNT (AUTO) 211 K/uL (150-450); RED BLOOD CELL COUNT(AUTO) 4.86 MIL/uL (4.50-5.90); RED CELL DISTRIBUTION WIDTH 14.3 % (11.5-14.5); WHITE BLOOD COUNT (AUTO) 8.2 K/uL (4.5-11.0)
[2016-12-08 04:31] LABS: ANION GAP 9 mmol/L (8-16); CALCIUM, TOTAL 8.8 mg/dL (8.8-10.5); CARBON DIOXIDE 30 mmol/L (22-29); CHLORIDE 103 mmol/L (98-107); CREATININE 0.89 mg/dL (0.60-1.30); GLOMERULAR FILTR. RATE CALC > 60 mL/min (>60); POTASSIUM 3.6 mmol/L (3.5-5.1); SODIUM SERUM 142 mmol/L (136-145); UREA NITROGEN, BLOOD 11 mg/dL (7-18)
[2016-12-08 04:37] LABS: ALANINE AMINOTRANSFERASE 44 U/L (12-78); ALBUMIN 3.9 g/dL (3.4-5.0); ASPARTATE AMINOTRANSFERASE 26 U/L (15-37); BILIRUBIN,TOTAL 0.2 mg/dL (0.1-1.0)
[2016-12-08 06:29] VITALS: BP 131/87
[2016-12-08] MEDS ORDERED: PNEUMOCOCCAL VACCINE POLYVALENT 0.5 ML VIAL [PPSV23] IM ONE (06:45)
[2016-12-08] MEDS ORDERED: INFLUENZA VIRUS VACCINE QVS 2017-18 (3YR+)/PF 60 MCG/0.5 ML SYRINGE IM ONE (06:45)
[2016-12-08 06:50] LABS: APPEARANCE,URINE CLEAR (CLEAR); GLUCOSE, URINE (UA) NEGATIVE (NEGATIVE); KETONES,URINE NEGATIVE (NEGATIVE); LEUKOCYTE ESTERASE ,URINE NEGATIVE (NEGATIVE); OCCULT BLOOD,URINE SMALL (NEGATIVE); PROTEIN,URINE NEGATIVE (NEGATIVE)
[2016-12-08 06:51] LABS: ADD UA MICROSCOPIC YES
[2016-12-08 06:54] LABS: WBC,URINE None Seen /HPF (0-5)
[2016-12-09 08:59] VITALS: BP 146/85
[2016-12-09] MEDS: CHOLECALCIFEROL (VIT D3) 1,000 UNITS TABLET PO SCH (14:33)
[2016-12-09] MEDS: TIOTROPIUM BROMIDE 18 MCG/INH HANDIHALER [5] IH SCH (18:00)
[2016-12-09] MEDS: FLUTICASONE/VILANTEROL 100-25 MCG/INH INHALER [14] IH SCH (18:50)
[2016-12-09] MEDS: NICOTINE 21 MG/24 HOUR PATCH TD SCH (18:50)
[2016-12-09] MEDS ORDERED: DiphenhydrAMINE HCL 25 MG CAPSULE PO SCH (21:00)
[2016-12-09] MEDS ORDERED: OLANZapine 10 MG TABLET PO SCH (21:00)
[2016-12-09 21:03] VITALS: BP 142/81
[2016-12-09] MEDS: ATORVASTATIN CALCIUM 40 MG TABLET PO SCH (21:15)
[2016-12-10] MEDS: CHOLECALCIFEROL (VIT D3) 1,000 UNITS TABLET PO SCH (09:01)
[2016-12-10] MEDS: TIOTROPIUM BROMIDE 18 MCG/INH HANDIHALER [5] IH SCH (09:07)
[2016-12-10] MEDS: FLUTICASONE/VILANTEROL 100-25 MCG/INH INHALER [14] IH SCH (09:07)
[2016-12-10] MEDS: NICOTINE 21 MG/24 HOUR PATCH TD SCH (09:07)
[2016-12-10 09:36] VITALS: BP 133/88
[2016-12-10] MEDS ORDERED: MAG HYDROX/AL HYDROX/SIMETH ES 30 ML SUSPENSION UDCUP PO PRN (12:15)
[2016-12-10] MEDS ORDERED: GuaiFENesin/D-METHORPHAN [SUGAR-FREE] 200-20MG/10 ML SYRUP UDCUP PO PRN (12:15)
[2016-12-10] MEDS ORDERED: HydrOXYzine PAMOATE 50 MG CAPSULE PO PRN (12:15)
[2016-12-10] MEDS ORDERED: LOPERAMIDE HCL 2 MG CAPSULE PO PRN (12:15)
[2016-12-10] MEDS ORDERED: ACETAMINOPHEN 325 MG TABLET PO PRN (12:15)
[2016-12-10] MEDS ORDERED: MAGNESIUM HYDROXIDE SUSPENSION 30 ML UDCUP PO PRN (12:15)
[2016-12-10] MEDS ORDERED: PROMETHAZINE HCL 25 MG TABLET PO PRN (12:15)
[2016-12-10] MEDS: THIAMINE HCL 100 MG TABLET PO SCH (16:40)
[2016-12-10] MEDS: ATORVASTATIN CALCIUM 40 MG TABLET PO SCH (20:46)
[2016-12-10] MEDS: OLANZapine 5 MG TABLET PO SCH (20:59)
[2016-12-10] MEDS: BENZOCAINE/MENTHOL LOZENGE [8 LOZENGES/PACKET] PO PRN (21:37)
[2016-12-11] MEDS: NALTREXONE HCL 50 MG TABLET PO SCH (10:03)
[2016-12-11] MEDS: MULTIVITAMINS WITH MINERALS, THERAPEUTIC TABLET PO SCH (10:03)
[2016-12-11] MEDS: NICOTINE 21 MG/24 HOUR PATCH TD SCH (10:03)
[2016-12-11] MEDS: CHOLECALCIFEROL (VIT D3) 1,000 UNITS TABLET PO SCH (10:03)
[2016-12-11] MEDS: TIOTROPIUM BROMIDE 18 MCG/INH HANDIHALER [5] IH SCH (10:03)
[2016-12-11] MEDS: THIAMINE HCL 100 MG TABLET PO SCH ×2 (10:04→16:48)
[2016-12-11] MEDS: FOLIC ACID 1 MG TABLET PO SCH (10:04)
[2016-12-11] MEDS: FLUTICASONE/VILANTEROL 100-25 MCG/INH INHALER [14] IH SCH (10:05)
[2016-12-11] MEDS: SERTRALINE HCL 50 MG TABLET PO SCH (10:25)
[2016-12-11] MEDS ORDERED: SERT50TA12 PO (17:29)
[2016-12-11] MEDS ORDERED: NALT50TA PO (17:29)
[2016-12-11] MEDS ORDERED: OLAN5TAB27 PO (17:29)
[2016-12-11] MEDS: BENZOCAINE/MENTHOL LOZENGE [8 LOZENGES/PACKET] PO PRN (19:45)
[2016-12-11] MEDS: ATORVASTATIN CALCIUM 40 MG TABLET PO SCH (21:13)
[2016-12-11] MEDS: OLANZapine 5 MG TABLET PO SCH (21:14)
[2016-12-12] MEDS: MULTIVITAMINS WITH MINERALS, THERAPEUTIC TABLET PO SCH (08:13)
[2016-12-12] MEDS: CHOLECALCIFEROL (VIT D3) 1,000 UNITS TABLET PO SCH (08:13)
[2016-12-12] MEDS: NALTREXONE HCL 50 MG TABLET PO SCH (08:14)
[2016-12-12] MEDS: FOLIC ACID 1 MG TABLET PO SCH (08:14)
[2016-12-12] MEDS: THIAMINE HCL 100 MG TABLET PO SCH (08:14)
[2016-12-12] MEDS: SERTRALINE HCL 50 MG TABLET PO SCH (08:14)
[2016-12-12] MEDS: NICOTINE 21 MG/24 HOUR PATCH TD SCH (08:18)
[2016-12-12] MEDS: FLUTICASONE/VILANTEROL 100-25 MCG/INH INHALER [14] IH SCH (08:18)
[2016-12-12] MEDS: TIOTROPIUM BROMIDE 18 MCG/INH HANDIHALER [5] IH SCH (08:18)
[2016-12-12] MEDS ORDERED: TIOT185 IH (11:03)
[2016-12-12] MEDS ORDERED: ATOR40TA28 PO (11:04)
[2016-12-12] MEDS ORDERED: FLUT1AER IH (11:04)
[2016-12-12] MEDS ORDERED: VITAD1000 PO (11:07)
== END 2016-12-12 12:00 | disposition home or self-care (01) | DRG 885 ==
LOC: EMS 03:16 → 3EX 03:30
PROVIDERS: ADMIT Psychiatry & Neurology Psychiatry; ATTEND Psychiatry & Neurology Psychiatry
DX: F20.0 Paranoid schizophrenia (principal); R45.851 Suicidal ideations; R56.9 Unspecified convulsions; J44.1 Chronic obstructive pulmonary disease with (acute) exacerbation; E78.5 Hyperlipidemia, unspecified; Z56.0 Unemployment, unspecified; F10.220 Alcohol dependence with intoxication, uncomplicated; F17.210 Nicotine dependence, cigarettes, uncomplicated; F32.9 Major depressive disorder, single episode, unspecified; K21.9 Gastro-esophageal reflux disease without esophagitis; Z59.0 Homelessness; Z91.14 Patient's other noncompliance with medication regimen; Z91.19 Patient's noncompliance with other medical treatment and regimen; R91.1 Solitary pulmonary nodule; Z28.21 Immunization not carried out because of patient refusal
CPT/HCPCS: 87081; 99285; G0480

== ENCOUNTER 2017-02-01 08:48 | Inpatient (IN) | payer MEDICARE, MEDICAID ==
[~2017-02-01] VITALS: Ht 177.8 cm; Wt 83.8 kg
[~2017-02-01 08:48] MED LIST changes: +ATOR40TA28 PO; +FLUT1AER IH; -LEVE500T53 PO; -OLAN10TA20 PO; +OLAN5TAB27 PO; +TIOT185 IH; +VITAD1000 PO
[2017-02-01 09:18] LABS: BASOPHILS % (AUTO) 0.7 % (0.0-2.0); EOSINOPHILS % (AUTO) 1.4 % (1.0-6.0); HEMOGLOBIN 14.8 g/dL (13.5-17.5); LYMPHOCYTES # (AUTO) 2.4 K/uL (1.0-4.8); LYMPHOCYTES % (AUTO) 23.6 % (22.0-44.0); MEAN CORPUSCULAR HEMOGLOBIN 31.1 pg (26.0-34.0); MEAN CORPUSCULAR HGB CONC 34.4 G/dL (31.0-37.0); MEAN CORPUSCULAR VOLUME 91 fL (80-100); MONOCYTES # (AUTO) 0.6 K/uL (0.1-1.0); MONOCYTES % (AUTO) 5.8 % (2.0-9.0); NEUTROPHILS # (AUTO) 6.9 K/uL (1.8-7.7); NEUTROPHILS % (AUTO) 68.5 % (40.0-70.0); PLATELET COUNT (AUTO) 258 K/uL (150-450); RED BLOOD CELL COUNT(AUTO) 4.75 MIL/uL (4.50-5.90); RED CELL DISTRIBUTION WIDTH 14.7 % (11.5-14.5); WHITE BLOOD COUNT (AUTO) 10.1 K/uL (4.5-11.0)
[2017-02-01 09:31] LABS: ANION GAP 11 mmol/L (8-16); CALCIUM, TOTAL 8.9 mg/dL (8.8-10.5); CARBON DIOXIDE 26 mmol/L (22-29); CHLORIDE 102 mmol/L (98-107); CREATININE 0.84 mg/dL (0.60-1.30); GLOMERULAR FILTR. RATE CALC > 60 mL/min (>60); POTASSIUM 3.8 mmol/L (3.5-5.1); SODIUM SERUM 139 mmol/L (136-145); UREA NITROGEN, BLOOD 12 mg/dL (7-18)
[2017-02-01 09:37] LABS: ALANINE AMINOTRANSFERASE 31 U/L (12-78); ASPARTATE AMINOTRANSFERASE 22 U/L (15-37); BILIRUBIN,TOTAL 0.3 mg/dL (0.1-1.0); TOTAL PROTEIN, SERUM 8.3 g/dL (6.4-8.2)
[2017-02-01] MEDS ORDERED: ZOLPIDEM TARTRATE 10 MG TABLET PO PRN (10:30)
[2017-02-01] MEDS ORDERED: HALOPERIDOL 5 MG TABLET PO PRN (10:30)
[2017-02-01] MEDS ORDERED: LORazepam 2 MG TABLET PO PRN (10:30)
[2017-02-01] MEDS: NALTREXONE HCL 50 MG TABLET PO SCH (13:13)
[2017-02-01 13:30] VITALS: BP 123/84
[2017-02-01] MEDS ORDERED: PNEUMOCOCCAL VACCINE POLYVALENT 0.5 ML VIAL [PPSV23] IM ONE (13:45)
[2017-02-01] MEDS ORDERED: INFLUENZA VIRUS VACCINE QVS 2017-18 (3YR+)/PF 60 MCG/0.5 ML SYRINGE IM ONE (13:45)
[2017-02-01] MEDS: BACITRACIN 28.4 GM OINTMENT TP SCH (17:59)
[2017-02-01] MEDS: OLANZapine 7.5 MG TABLET PO SCH (20:35)
[2017-02-02] MEDS: ATORVASTATIN CALCIUM 40 MG TABLET PO SCH (08:47)
[2017-02-02] MEDS: SERTRALINE HCL 50 MG TABLET PO SCH (08:47)
[2017-02-02] MEDS: NALTREXONE HCL 50 MG TABLET PO SCH (08:47)
[2017-02-02] MEDS: CHOLECALCIFEROL (VIT D3) 1,000 UNITS TABLET PO SCH (08:48)
[2017-02-02] MEDS: BACITRACIN 28.4 GM OINTMENT TP SCH ×2 (08:48→16:21)
[2017-02-02 16:12] VITALS: BP 110/72
[2017-02-02] MEDS: OLANZapine 7.5 MG TABLET PO SCH (20:27)
[2017-02-03 00:56] VITALS: BP 118/75
[2017-02-03] MEDS: BACITRACIN 28.4 GM OINTMENT TP SCH ×2 (09:22→16:16)
[2017-02-03] MEDS: ATORVASTATIN CALCIUM 40 MG TABLET PO SCH (09:22)
[2017-02-03] MEDS: NALTREXONE HCL 50 MG TABLET PO SCH (09:22)
[2017-02-03] MEDS: CHOLECALCIFEROL (VIT D3) 1,000 UNITS TABLET PO SCH (09:22)
[2017-02-03] MEDS: SERTRALINE HCL 50 MG TABLET PO SCH (09:22)
[2017-02-03 16:20] VITALS: BP 133/84
[2017-02-03] MEDS: OLANZapine 7.5 MG TABLET PO SCH (20:20)
[2017-02-04 02:23] VITALS: BP 126/77
[2017-02-04] MEDS: NALTREXONE HCL 50 MG TABLET PO SCH (09:11)
[2017-02-04] MEDS: ATORVASTATIN CALCIUM 40 MG TABLET PO SCH (09:11)
[2017-02-04] MEDS: CHOLECALCIFEROL (VIT D3) 1,000 UNITS TABLET PO SCH (09:11)
[2017-02-04] MEDS: SERTRALINE HCL 50 MG TABLET PO SCH (09:11)
[2017-02-04] MEDS: BACITRACIN 28.4 GM OINTMENT TP SCH ×2 (09:14→16:53)
[2017-02-04 16:22] VITALS: BP 127/80
[2017-02-04] MEDS: OLANZapine 7.5 MG TABLET PO SCH (20:33)
[2017-02-05] MEDS: NALTREXONE HCL 50 MG TABLET PO SCH (09:08)
[2017-02-05] MEDS: CHOLECALCIFEROL (VIT D3) 1,000 UNITS TABLET PO SCH (09:08)
[2017-02-05] MEDS: SERTRALINE HCL 50 MG TABLET PO SCH (09:08)
[2017-02-05] MEDS: ATORVASTATIN CALCIUM 40 MG TABLET PO SCH (09:08)
[2017-02-05] MEDS: BACITRACIN 28.4 GM OINTMENT TP SCH ×2 (09:09→16:54)
[2017-02-05 16:38] VITALS: BP 117/89
[2017-02-05] MEDS: OLANZapine 7.5 MG TABLET PO SCH (20:37)
[2017-02-06] MEDS: CHOLECALCIFEROL (VIT D3) 1,000 UNITS TABLET PO SCH (09:38)
[2017-02-06] MEDS: SERTRALINE HCL 50 MG TABLET PO SCH (09:38)
[2017-02-06] MEDS: NALTREXONE HCL 50 MG TABLET PO SCH (09:39)
[2017-02-06] MEDS: ATORVASTATIN CALCIUM 40 MG TABLET PO SCH (09:39)
[2017-02-06] MEDS: BACITRACIN 28.4 GM OINTMENT TP SCH ×2 (09:40→16:41)
[2017-02-06 16:11] VITALS: BP 138/82
[2017-02-06] MEDS: OLANZapine 7.5 MG TABLET PO SCH (20:30)
[2017-02-07] MEDS: SERTRALINE HCL 50 MG TABLET PO SCH (09:38)
[2017-02-07] MEDS: NALTREXONE HCL 50 MG TABLET PO SCH (09:38)
[2017-02-07] MEDS: CHOLECALCIFEROL (VIT D3) 1,000 UNITS TABLET PO SCH (09:38)
[2017-02-07] MEDS: ATORVASTATIN CALCIUM 40 MG TABLET PO SCH (09:38)
[2017-02-07] MEDS: BACITRACIN 28.4 GM OINTMENT TP SCH (09:39)
[2017-02-07] MEDS ORDERED: OLAN7.5T2 PO ×2 (12:16→12:17)
[2017-02-07] MEDS ORDERED: SERT50TA12 PO (12:16)
[2017-02-07] MEDS ORDERED: NALT50TA6 PO (12:17)
[2017-02-07] MEDS ORDERED: ATOR40TA28 PO (12:23)
== END 2017-02-07 13:30 | disposition home or self-care (01) | DRG 885 ==
LOC: EMS 08:50 → EEVIPCON 08:50 → B2X 11:51
DX: F25.1 Schizoaffective disorder, depressive type (principal); R45.851 Suicidal ideations; Y90.9 Presence of alcohol in blood, level not specified; F10.20 Alcohol dependence, uncomplicated; Z59.0 Homelessness; F17.210 Nicotine dependence, cigarettes, uncomplicated; E78.5 Hyperlipidemia, unspecified; Z28.21 Immunization not carried out because of patient refusal; J44.9 Chronic obstructive pulmonary disease, unspecified; K21.9 Gastro-esophageal reflux disease without esophagitis; Z79.899 Other long term (current) drug therapy; Z91.5 Personal history of self-harm
CPT/HCPCS: 99285; G0480

== ENCOUNTER 2017-04-04 01:47 | Inpatient (IN) | payer MEDICARE, MEDICAID ==
[~2017-04-04] VITALS: Ht 175.3 cm; Wt 83.5 kg
[~2017-04-04 01:47] MED LIST changes: -FLUT1AER IH; +NALT50TA6 PO; +OLAN7.5T2 PO; -TIOT185 IH; -VITAD1000 PO
[2017-04-04] MEDS ORDERED: ZOLPIDEM TARTRATE 10 MG TABLET PO PRN (03:00)
[2017-04-04] MEDS ORDERED: HALOPERIDOL 5 MG TABLET PO PRN (03:00)
[2017-04-04] MEDS ORDERED: LORazepam 2 MG TABLET PO PRN (03:00)
[2017-04-04 04:30] VITALS: BP 130/81
[2017-04-04] MEDS ORDERED: PNEUMOCOCCAL VACCINE POLYVALENT 0.5 ML VIAL [PPSV23] IM ONE (05:15)
[2017-04-04] MEDS ORDERED: INFLUENZA VIRUS VACCINE QVS 2017-18 (3YR+)/PF 60 MCG/0.5 ML SYRINGE IM ONE (05:15)
[2017-04-04] MEDS ORDERED: IBUPROFEN 400 MG TABLET PO PRN (06:30)
[2017-04-04] MEDS ORDERED: ALBUTEROL SULFATE HFA 90 MCG/PUFF 8 GM INHALER IH PRN (07:45)
[2017-04-04] MEDS: OLANZapine 10 MG TABLET PO SCH (20:32)
[2017-04-04] MEDS ORDERED: OLANZapine 7.5 MG TABLET PO SCH (21:00)
[2017-04-05] MEDS: SERTRALINE HCL 100 MG TABLET PO SCH (08:23)
[2017-04-05] MEDS ORDERED: SERTRALINE HCL 50 MG TABLET PO SCH (09:00)
[2017-04-05 13:09] VITALS: BP 123/83
[2017-04-05] MEDS: ACETAMINOPHEN 325 MG TABLET PO PRN (13:09)
[2017-04-05] MEDS: OLANZapine 10 MG TABLET PO SCH (20:16)
[2017-04-06 00:44] VITALS: BP 120/85
[2017-04-06] MEDS: SERTRALINE HCL 100 MG TABLET PO SCH (09:06)
[2017-04-06] MEDS: ACETAMINOPHEN 325 MG TABLET PO PRN (16:33)
[2017-04-06 16:35] VITALS: BP 115/71
[2017-04-06] MEDS: OLANZapine 10 MG TABLET PO SCH (20:33)
[2017-04-07 06:30] VITALS: BP 142/85
[2017-04-07] MEDS: SERTRALINE HCL 100 MG TABLET PO SCH (08:23)
[2017-04-07 08:59] VITALS: BP 142/85
[2017-04-07] MEDS: OLANZapine 10 MG TABLET PO SCH (20:32)
[2017-04-08] MEDS: SERTRALINE HCL 100 MG TABLET PO SCH (08:36)
[2017-04-08] MEDS: THIAMINE HCL 100 MG TABLET PO SCH ×2 (08:36→16:05)
[2017-04-08] MEDS: OLANZapine 10 MG TABLET PO SCH (20:17)
[2017-04-08] MEDS: ACETAMINOPHEN 325 MG TABLET PO PRN (21:09)
[2017-04-09 00:28] VITALS: BP 104/61
[2017-04-09] MEDS: SERTRALINE HCL 100 MG TABLET PO SCH (08:20)
[2017-04-09] MEDS: THIAMINE HCL 100 MG TABLET PO SCH (08:20)
[2017-04-09] MEDS ORDERED: THIA100T75 PO (09:07)
[2017-04-09] MEDS ORDERED: THIA100 PO (09:09)
[2017-04-09] MEDS ORDERED: ALBU8HFA IH (09:10)
== END 2017-04-09 10:35 | disposition home or self-care (01) | DRG 885 ==
LOC: B2X 02:45 → EDSTATUS 03:06
PROVIDERS: ADMIT Psychiatry & Neurology Psychiatry; ATTEND Psychiatry & Neurology Psychiatry
DX: F25.0 Schizoaffective disorder, bipolar type (principal); R45.851 Suicidal ideations; G40.909 Epilepsy, unspecified, not intractable, without status epilepticus; E78.5 Hyperlipidemia, unspecified; F10.10 Alcohol abuse, uncomplicated; F32.9 Major depressive disorder, single episode, unspecified; F41.9 Anxiety disorder, unspecified; I10 Essential (primary) hypertension; J44.9 Chronic obstructive pulmonary disease, unspecified; K21.9 Gastro-esophageal reflux disease without esophagitis; Z91.5 Personal history of self-harm; Z59.0 Homelessness; F17.200 Nicotine dependence, unspecified, uncomplicated; Z71.41 Alcohol abuse counseling and surveillance of alcoholic; F19.10 Other psychoactive substance abuse, uncomplicated; Z28.21 Immunization not carried out because of patient refusal
CPT/HCPCS: 90471; 99285

== ENCOUNTER 2017-06-13 06:08 | Inpatient (IN) | payer MEDICARE, MEDICAID ==
[~2017-06-13] VITALS: Ht 180.3 cm; Wt 79.7 kg
[2017-06-13] VITALS (15 sets, daily range): BP systolic 112–156; BP diastolic 65–90
[~2017-06-13 06:08] MED LIST changes: +ALBU8HFA IH; -ATOR40TA28 PO; -NALT50TA PO; -NALT50TA6 PO; -OLAN5TAB27 PO; +THIA100 PO
[2017-06-13] MEDS ORDERED: HALOPERIDOL 5 MG TABLET PO PRN (06:45)
[2017-06-13] MEDS ORDERED: ZOLPIDEM TARTRATE 10 MG TABLET PO PRN (06:45)
[2017-06-13] MEDS ORDERED: LORazepam 1 MG TABLET PO PRN (06:45)
[2017-06-13] MEDS ORDERED: QUEtiapine FUMARATE 100 MG TABLET PO PRN (07:45)
[2017-06-13] MEDS ORDERED: HydrOXYzine PAMOATE 50 MG CAPSULE PO PRN (07:45)
[2017-06-13] MEDS ORDERED: CYANOCOBALAMIN 1,000 MCG/ML VIAL IM ONE (07:45)
[2017-06-13] MEDS ORDERED: GuaiFENesin/D-METHORPHAN [SUGAR-FREE] 200-20MG/10 ML SYRUP UDCUP PO PRN (07:45)
[2017-06-13] MEDS ORDERED: LORazepam 2 MG TABLET PO PRN (07:45)
[2017-06-13] MEDS ORDERED: LOPERAMIDE HCL 2 MG CAPSULE PO PRN ×2 (07:45→09:15)
[2017-06-13] MEDS: FOLIC ACID 1 MG TABLET PO SCH (09:12)
[2017-06-13] MEDS: THIAMINE HCL 100 MG TABLET PO SCH ×2 (09:13→16:42)
[2017-06-13] MEDS: MULTIVITAMINS WITH MINERALS, THERAPEUTIC TABLET PO SCH (09:13)
[2017-06-13] MEDS: CarBAMazepine 200 MG TABLET PO SCH ×2 (09:13→16:42)
[2017-06-13] MEDS ORDERED: ALBUTEROL SULFATE HFA 90 MCG/PUFF 8 GM INHALER IH PRN (09:15)
[2017-06-13] MEDS ORDERED: PETROLATUM,WHITE 71 GM JELLY TP PRN (09:15)
[2017-06-13] MEDS ORDERED: ONDANSETRON HCL 4 MG TABLET PO PRN (09:15)
[2017-06-13] MEDS ORDERED: BACITRACIN 28.4 GM OINTMENT TP PRN (09:15)
[2017-06-13] MEDS ORDERED: MAGNESIUM HYDROXIDE SUSPENSION 30 ML UDCUP PO PRN (09:15)
[2017-06-13] MEDS ORDERED: MAG HYDROX/AL HYDROX/SIMETH ES 30 ML SUSPENSION UDCUP PO PRN (09:15)
[2017-06-13] MEDS ORDERED: BENZOCAINE/MENTHOL LOZENGE MM PRN (09:15)
[2017-06-13] MEDS ORDERED: CloNIDine HCL 0.1 MG TABLET PO PRN (09:15)
[2017-06-13] MEDS ORDERED: IBUPROFEN 600 MG TABLET PO PRN (09:15)
[2017-06-13] MEDS ORDERED: SERT100T12 PO (09:33)
[2017-06-13] MEDS ORDERED: OLAN10TA3 PO (09:33)
[2017-06-13] MEDS ORDERED: PNEUMOCOCCAL VACCINE POLYVALENT 0.5 ML VIAL [PPSV23] IM ONE (12:00)
[2017-06-13] MEDS: ACETAMINOPHEN 325 MG TABLET PO PRN (14:24)
[2017-06-13] MEDS: ESZOPICLONE 2 MG TABLET PO SCH (21:27)
[2017-06-14] VITALS (8 sets, daily range): BP systolic 118–133; BP diastolic 65–85
[2017-06-14] MEDS ORDERED: LORazepam 2 MG TABLET PO PRN (07:00)
[2017-06-14] MEDS: THIAMINE HCL 100 MG TABLET PO SCH ×2 (08:55→17:06)
[2017-06-14] MEDS: CHOLECALCIFEROL (VIT D3) 1,000 UNITS TABLET PO SCH (08:55)
[2017-06-14] MEDS: LORazepam 2 MG TABLET PO SCH ×4 (08:56→20:40)
[2017-06-14] MEDS: FOLIC ACID 1 MG TABLET PO SCH (08:56)
[2017-06-14] MEDS: MULTIVITAMINS WITH MINERALS, THERAPEUTIC TABLET PO SCH (08:56)
[2017-06-14] MEDS: OMEGA-3/DHA/EPA/FISH OIL 1,000 MG CAPSULE PO SCH (08:56)
[2017-06-14] MEDS: CarBAMazepine 200 MG TABLET PO SCH ×2 (08:56→17:06)
[2017-06-14 09:46] LABS: AMPHET/METH SCREEN,URINE NEGATIVE (NEGATIVE); BARBITURATE SCREEN, URINE NEGATIVE (NEGATIVE); BENZODIAZEPINES SCREEN,URINE NEGATIVE (NEGATIVE); CANNABINOID SCREEN,URINE NEGATIVE (NEGATIVE); COCAINE SCREEN,URINE NEGATIVE (NEGATIVE); METHADONE SCREEN, URINE NEGATIVE (NEGATIVE); OPIATE SCREEN,URINE NEGATIVE (NEGATIVE)
[2017-06-14 09:52] LABS: PHENCYCLIDINE SCREEN,URINE NEGATIVE (NEGATIVE)
[2017-06-14 09:58] LABS: APPEARANCE,URINE CLEAR (CLEAR); BILIRUBIN,URINE NEGATIVE (NEGATIVE); GLUCOSE, URINE (UA) NEGATIVE (NEGATIVE); KETONES,URINE NEGATIVE (NEGATIVE); LEUKOCYTE ESTERASE ,URINE NEGATIVE (NEGATIVE); NITRATE,URINE NEGATIVE (NEGATIVE); OCCULT BLOOD,URINE NEGATIVE (NEGATIVE); PH,URINE 7.5 (5.0-8.0); PROTEIN,URINE NEGATIVE (NEGATIVE); UROBILINOGEN,URINE 0.2 mg/dL (<=1.0)
[2017-06-14 10:01] LABS: BACTERIA,URINE None Seen /HPF (None Seen); RBC,URINE None Seen /HPF (0-2); WBC,URINE None Seen /HPF (0-5)
[2017-06-14] MEDS: ACETAMINOPHEN 325 MG TABLET PO PRN (17:11)
[2017-06-14] MEDS: ESZOPICLONE 2 MG TABLET PO SCH (20:40)
[2017-06-15 04:45] VITALS: BP 133/80
[2017-06-15] MEDS: LORazepam 2 MG TABLET PO SCH ×4 (08:21→20:40)
[2017-06-15] MEDS: OMEGA-3/DHA/EPA/FISH OIL 1,000 MG CAPSULE PO SCH (08:21)
[2017-06-15] MEDS: MULTIVITAMINS WITH MINERALS, THERAPEUTIC TABLET PO SCH (08:21)
[2017-06-15] MEDS: FOLIC ACID 1 MG TABLET PO SCH (08:21)
[2017-06-15] MEDS: CarBAMazepine 200 MG TABLET PO SCH ×2 (08:21→16:59)
[2017-06-15] MEDS: THIAMINE HCL 100 MG TABLET PO SCH ×2 (08:21→16:59)
[2017-06-15] MEDS: CHOLECALCIFEROL (VIT D3) 1,000 UNITS TABLET PO SCH (08:21)
[2017-06-15 08:25] VITALS: BP 110/61
[2017-06-15 12:49] VITALS: BP 109/67
[2017-06-15 16:55] VITALS: BP 124/80
[2017-06-15] MEDS: ESZOPICLONE 2 MG TABLET PO SCH (20:40)
[2017-06-16 06:14] VITALS: BP 135/82
[2017-06-16] MEDS ORDERED: LORazepam 1 MG TABLET PO PRN (07:00)
[2017-06-16 08:19] VITALS: BP 130/85
[2017-06-16] MEDS: OMEGA-3/DHA/EPA/FISH OIL 1,000 MG CAPSULE PO SCH (08:24)
[2017-06-16] MEDS: LORazepam 1 MG TABLET PO SCH ×4 (08:24→20:42)
[2017-06-16] MEDS: MULTIVITAMINS WITH MINERALS, THERAPEUTIC TABLET PO SCH (08:24)
[2017-06-16] MEDS: CHOLECALCIFEROL (VIT D3) 1,000 UNITS TABLET PO SCH (08:24)
[2017-06-16] MEDS: THIAMINE HCL 100 MG TABLET PO SCH ×2 (08:24→16:29)
[2017-06-16] MEDS: CarBAMazepine 200 MG TABLET PO SCH ×2 (08:24→16:29)
[2017-06-16] MEDS: FOLIC ACID 1 MG TABLET PO SCH (08:24)
[2017-06-16 16:10] VITALS: BP 122/79
[2017-06-16] MEDS: ESZOPICLONE 2 MG TABLET PO SCH (20:42)
[2017-06-17] MEDS ORDERED: LORazepam 1 MG TABLET PO PRN (07:00)
[2017-06-17 08:37] VITALS: BP 122/76
[2017-06-17] MEDS: CHOLECALCIFEROL (VIT D3) 1,000 UNITS TABLET PO SCH (09:35)
[2017-06-17] MEDS: FOLIC ACID 1 MG TABLET PO SCH (09:35)
[2017-06-17] MEDS: MULTIVITAMINS WITH MINERALS, THERAPEUTIC TABLET PO SCH (09:35)
[2017-06-17] MEDS: OMEGA-3/DHA/EPA/FISH OIL 1,000 MG CAPSULE PO SCH (09:37)
[2017-06-17] MEDS: CarBAMazepine 200 MG TABLET PO SCH ×2 (09:37→17:09)
[2017-06-17] MEDS: THIAMINE HCL 100 MG TABLET PO SCH ×2 (09:37→17:10)
[2017-06-17 16:21] VITALS: BP 120/83
[2017-06-17] MEDS: ESZOPICLONE 2 MG TABLET PO SCH (20:27)
[2017-06-17] MEDS: OLANZapine 10 MG TABLET PO SCH (20:28)
[2017-06-18 08:33] VITALS: BP 118/74
[2017-06-18] MEDS: MULTIVITAMINS WITH MINERALS, THERAPEUTIC TABLET PO SCH (08:36)
[2017-06-18] MEDS: OMEGA-3/DHA/EPA/FISH OIL 1,000 MG CAPSULE PO SCH (08:36)
[2017-06-18] MEDS: CHOLECALCIFEROL (VIT D3) 1,000 UNITS TABLET PO SCH (08:36)
[2017-06-18] MEDS: CarBAMazepine 200 MG TABLET PO SCH ×2 (08:36→16:08)
[2017-06-18] MEDS: FOLIC ACID 1 MG TABLET PO SCH (08:36)
[2017-06-18] MEDS: THIAMINE HCL 100 MG TABLET PO SCH ×2 (08:36→16:08)
[2017-06-18] MEDS ORDERED: CarBAMazepine 200 MG TABLET PO SCH (09:00)
[2017-06-18 16:09] VITALS: BP 107/68
[2017-06-18] MEDS: OLANZapine 10 MG TABLET PO SCH (20:25)
[2017-06-18] MEDS: ESZOPICLONE 2 MG TABLET PO SCH (20:25)
[2017-06-18] MEDS ORDERED: OMEG-135 PO (21:49)
[2017-06-18] MEDS ORDERED: CHOL10002 PO (21:50)
[2017-06-18] MEDS ORDERED: ESZO2 PO (21:51)
[2017-06-19] MEDS: MULTIVITAMINS WITH MINERALS, THERAPEUTIC TABLET PO SCH (08:01)
[2017-06-19] MEDS: CHOLECALCIFEROL (VIT D3) 1,000 UNITS TABLET PO SCH (08:01)
[2017-06-19] MEDS: THIAMINE HCL 100 MG TABLET PO SCH (08:01)
[2017-06-19] MEDS: FOLIC ACID 1 MG TABLET PO SCH (08:02)
[2017-06-19] MEDS: OMEGA-3/DHA/EPA/FISH OIL 1,000 MG CAPSULE PO SCH (08:02)
[2017-06-19] MEDS: CarBAMazepine 200 MG TABLET PO SCH (08:02)
[2017-06-19] MEDS ORDERED: OLAN10TA3 PO (09:29)
[2017-06-19] MEDS ORDERED: ALBU8HFA IH (09:33)
== END 2017-06-19 11:15 | disposition home or self-care (01) | DRG 885 ==
LOC: EDSTATUS 06:30 → B2X 06:41
PROVIDERS: ADMIT Psychiatry & Neurology Psychiatry; ATTEND Psychiatry & Neurology Psychiatry
DX: F20.0 Paranoid schizophrenia (principal); R45.851 Suicidal ideations; Z91.14 Patient's other noncompliance with medication regimen; E55.9 Vitamin D deficiency, unspecified; F10.20 Alcohol dependence, uncomplicated; G47.00 Insomnia, unspecified; I10 Essential (primary) hypertension; J44.9 Chronic obstructive pulmonary disease, unspecified; K21.9 Gastro-esophageal reflux disease without esophagitis; K59.00 Constipation, unspecified; Z72.0 Tobacco use; Z28.21 Immunization not carried out because of patient refusal; Z71.41 Alcohol abuse counseling and surveillance of alcoholic; Z71.6 Tobacco abuse counseling; Z79.899 Other long term (current) drug therapy
CPT/HCPCS: 80307; 96372; 99285; J3420

== ENCOUNTER 2017-08-03 20:49 | Inpatient (IN) | payer MEDICARE, MEDICAID ==
[~2017-08-03 20:49] MED LIST changes: +CHOL10002 PO; +OLAN10TA3 PO; -OLAN7.5T2 PO; +OMEG-135 PO; -SERT50TA12 PO; -THIA100 PO
[2017-08-03 21:30] VITALS: BP 134/95
[2017-08-03] MEDS ORDERED: QUEtiapine FUMARATE 100 MG TABLET PO PRN (22:45)
[2017-08-03] MEDS ORDERED: LORazepam 2 MG TABLET PO PRN (22:45)
[2017-08-03] MEDS ORDERED: ZOLPIDEM TARTRATE 10 MG TABLET PO PRN (22:45)
[2017-08-03] MEDS ORDERED: SERT50TA12 PO (23:12)
[2017-08-03] MEDS ORDERED: PNEUMOCOCCAL VACCINE POLYVALENT 0.5 ML VIAL [PPSV23] IM ONE (23:15)
[2017-08-04 00:22] VITALS: BP 133/68
[2017-08-04] MEDS ORDERED: LOPERAMIDE HCL 2 MG CAPSULE PO PRN (06:30)
[2017-08-04] MEDS ORDERED: IBUPROFEN 600 MG TABLET PO PRN (06:30)
[2017-08-04] MEDS ORDERED: BACITRACIN 28.4 GM OINTMENT TP PRN (06:30)
[2017-08-04] MEDS ORDERED: BENZOCAINE/MENTHOL LOZENGE MM PRN (06:30)
[2017-08-04] MEDS ORDERED: MAGNESIUM HYDROXIDE SUSPENSION 30 ML UDCUP PO PRN (06:30)
[2017-08-04] MEDS ORDERED: MAG HYDROX/AL HYDROX/SIMETH ES 30 ML SUSPENSION UDCUP PO PRN (06:30)
[2017-08-04] MEDS ORDERED: ACETAMINOPHEN 325 MG TABLET PO PRN ×2 (06:30→14:00)
[2017-08-04] MEDS ORDERED: ONDANSETRON HCL 4 MG TABLET PO PRN (06:30)
[2017-08-04] MEDS ORDERED: ALBUTEROL SULFATE HFA 90 MCG/PUFF 8 GM INHALER IH PRN ×2 (06:30→06:45)
[2017-08-04] MEDS ORDERED: PETROLATUM,WHITE 71 GM JELLY TP PRN (06:30)
[2017-08-04] MEDS ORDERED: CloNIDine HCL 0.1 MG TABLET PO PRN (06:30)
[2017-08-04] MEDS ORDERED: VITAD1000 PO (06:42)
[2017-08-04] MEDS ORDERED: CHOLECALCIFEROL (VIT D3) 1,000 UNITS TABLET PO SCH (09:00)
[2017-08-04] MEDS ORDERED: OMEGA-3/DHA/EPA/FISH OIL 1,000 MG CAPSULE PO SCH (09:00)
[2017-08-04] MEDS: DOCUSATE SODIUM 100 MG CAPSULE PO SCH (09:24)
[2017-08-04] MEDS: OMEPRAZOLE 20 MG CAPSULE PO SCH (09:24)
[2017-08-04] MEDS: OMEGA-3/DHA/EPA/FISH OIL 1,000 MG CAPSULE PO SCH (09:24)
[2017-08-04] MEDS ORDERED: IBUPROFEN 400 MG TABLET PO PRN (14:00)
[2017-08-04] MEDS: OLANZapine 10 MG TABLET PO SCH (20:07)
[2017-08-05] MEDS: OMEGA-3/DHA/EPA/FISH OIL 1,000 MG CAPSULE PO SCH (08:55)
[2017-08-05] MEDS: DOCUSATE SODIUM 100 MG CAPSULE PO SCH (08:55)
[2017-08-05] MEDS: CHOLECALCIFEROL (VIT D3) 1,000 UNITS TABLET PO SCH (08:55)
[2017-08-05] MEDS: OMEPRAZOLE 20 MG CAPSULE PO SCH (08:55)
[2017-08-05] MEDS: SERTRALINE HCL 50 MG TABLET PO SCH (08:55)
[2017-08-05] MEDS ORDERED: [UNRECOGNIZED DRUG - OTHER] PO SCH (09:00)
[2017-08-05] MEDS ORDERED: GuaiFENesin/D-METHORPHAN [SUGAR-FREE] 200-20MG/10 ML SYRUP UDCUP PO PRN (14:30)
[2017-08-05] MEDS ORDERED: HydrOXYzine PAMOATE 50 MG CAPSULE PO PRN (14:30)
[2017-08-05] MEDS: THIAMINE HCL 100 MG TABLET PO SCH (16:09)
[2017-08-05] MEDS: TraZODone HCL 50 MG TABLET PO SCH (20:04)
[2017-08-05] MEDS: OLANZapine 10 MG TABLET PO SCH (20:05)
[2017-08-06 04:02] VITALS: BP 121/95
[2017-08-06] MEDS: OMEPRAZOLE 20 MG CAPSULE PO SCH (08:11)
[2017-08-06] MEDS: DOCUSATE SODIUM 100 MG CAPSULE PO SCH (08:11)
[2017-08-06] MEDS: SERTRALINE HCL 50 MG TABLET PO SCH (08:11)
[2017-08-06] MEDS: FOLIC ACID 1 MG TABLET PO SCH (08:11)
[2017-08-06] MEDS: OMEGA-3/DHA/EPA/FISH OIL 1,000 MG CAPSULE PO SCH (08:11)
[2017-08-06] MEDS: CHOLECALCIFEROL (VIT D3) 1,000 UNITS TABLET PO SCH (08:11)
[2017-08-06] MEDS: THIAMINE HCL 100 MG TABLET PO SCH ×2 (08:11→16:23)
[2017-08-06] MEDS: MULTIVITAMINS WITH MINERALS, THERAPEUTIC TABLET PO SCH (08:11)
[2017-08-06] MEDS ORDERED: SERT50TA12 PO (13:38)
[2017-08-06] MEDS ORDERED: OLAN10TA20 PO (13:38)
[2017-08-06] MEDS ORDERED: NALT50TA PO (13:38)
[2017-08-06] MEDS ORDERED: OMEG-135 PO (13:38)
[2017-08-06] MEDS ORDERED: TRAZ-144 PO (13:38)
[2017-08-06] MEDS: TraZODone HCL 50 MG TABLET PO SCH (20:05)
[2017-08-06] MEDS: OLANZapine 10 MG TABLET PO SCH (20:05)
[2017-08-07 03:39] VITALS: BP 128/88
[2017-08-07] MEDS: DOCUSATE SODIUM 100 MG CAPSULE PO SCH (08:07)
[2017-08-07] MEDS: MULTIVITAMINS WITH MINERALS, THERAPEUTIC TABLET PO SCH (08:07)
[2017-08-07] MEDS ORDERED: OMEP20 PO (08:07)
[2017-08-07] MEDS ORDERED: DSS100 PO (08:07)
[2017-08-07] MEDS: CHOLECALCIFEROL (VIT D3) 1,000 UNITS TABLET PO SCH (08:08)
[2017-08-07] MEDS: OMEGA-3/DHA/EPA/FISH OIL 1,000 MG CAPSULE PO SCH (08:08)
[2017-08-07] MEDS: OMEPRAZOLE 20 MG CAPSULE PO SCH (08:08)
[2017-08-07] MEDS: SERTRALINE HCL 50 MG TABLET PO SCH (08:08)
[2017-08-07] MEDS: FOLIC ACID 1 MG TABLET PO SCH (08:08)
[2017-08-07 08:30] VITALS: BP 122/75
[2017-08-07] MEDS ORDERED: NALTREXONE HCL 50 MG TABLET PO SCH (09:00)
[2017-08-07] MEDS: THIAMINE HCL 100 MG TABLET PO SCH (09:10)
== END 2017-08-07 10:48 | disposition home or self-care (01) | DRG 885 ==
LOC: B2S 22:46
PROVIDERS: ADMIT Psychiatry & Neurology Psychiatry; ATTEND Psychiatry & Neurology Psychiatry
PROC: 3E0234Z Introduction of Serum, Toxoid and Vaccine into Muscle, Percutaneous Approach (ICD-10-PCS; principal; 2017-08-04)
DX: F25.0 Schizoaffective disorder, bipolar type (principal); E55.9 Vitamin D deficiency, unspecified; F17.200 Nicotine dependence, unspecified, uncomplicated; G47.00 Insomnia, unspecified; K59.00 Constipation, unspecified; G89.29 Other chronic pain; F10.10 Alcohol abuse, uncomplicated; M25.519 Pain in unspecified shoulder; F19.10 Other psychoactive substance abuse, uncomplicated; I10 Essential (primary) hypertension; J44.9 Chronic obstructive pulmonary disease, unspecified; K21.9 Gastro-esophageal reflux disease without esophagitis; F12.10 Cannabis abuse, uncomplicated; Z79.51 Long term (current) use of inhaled steroids; Z79.899 Other long term (current) drug therapy; Z91.19 Patient's noncompliance with other medical treatment and regimen; Z23 Encounter for immunization; Z71.51 Drug abuse counseling and surveillance of drug abuser; Z71.41 Alcohol abuse counseling and surveillance of alcoholic; Z71.6 Tobacco abuse counseling

== ENCOUNTER 2017-09-06 14:46 | Inpatient (IN) | payer MEDICARE, MEDICAID ==
[~2017-09-06 14:46] MED LIST changes: -CHOL10002 PO; +DSS100 PO; +NALT50TA PO; +OLAN10TA20 PO; -OLAN10TA3 PO; +OMEP20 PO; +SERT50TA12 PO; +TRAZ-219 PO
[2017-09-07 04:45] VITALS: BP 137/95
[2017-09-07] MEDS ORDERED: LORazepam 1 MG TABLET PO PRN (05:15)
[2017-09-07] MEDS ORDERED: ZOLPIDEM TARTRATE 10 MG TABLET PO PRN (05:15)
[2017-09-07] MEDS ORDERED: LOPERAMIDE HCL 2 MG CAPSULE PO PRN ×3 (09:15→11:45)
[2017-09-07] MEDS ORDERED: IBUPROFEN 600 MG TABLET PO PRN (09:15)
[2017-09-07] MEDS ORDERED: PETROLATUM,WHITE 71 GM JELLY TP PRN ×2 (09:15→11:15)
[2017-09-07] MEDS ORDERED: ACETAMINOPHEN 325 MG TABLET PO PRN ×2 (09:15→11:15)
[2017-09-07] MEDS ORDERED: MAG HYDROX/AL HYDROX/SIMETH ES 30 ML SUSPENSION UDCUP PO PRN ×2 (09:15→11:15)
[2017-09-07] MEDS ORDERED: ALBUTEROL SULFATE HFA 90 MCG/PUFF 8 GM INHALER IH PRN ×2 (09:15→11:15)
[2017-09-07] MEDS ORDERED: MAGNESIUM HYDROXIDE SUSPENSION 30 ML UDCUP PO PRN ×2 (09:15→11:15)
[2017-09-07] MEDS ORDERED: ONDANSETRON HCL 4 MG TABLET PO PRN ×2 (09:15→11:15)
[2017-09-07] MEDS ORDERED: BACITRACIN 28.4 GM OINTMENT TP PRN (09:15)
[2017-09-07] MEDS ORDERED: CloNIDine HCL 0.1 MG TABLET PO PRN ×2 (09:15→11:15)
[2017-09-07 11:00] VITALS: BP 126/76
[2017-09-07] MEDS ORDERED: IBUPROFEN 400 MG TABLET PO PRN (11:15)
[2017-09-07] MEDS ORDERED: DOCUSATE SODIUM 100 MG CAPSULE PO PRN (11:15)
[2017-09-07] MEDS ORDERED: CYANOCOBALAMIN 1,000 MCG/ML VIAL IM ONE (11:45)
[2017-09-07] MEDS ORDERED: GuaiFENesin/D-METHORPHAN [SUGAR-FREE] 200-20MG/10 ML SYRUP UDCUP PO PRN (11:45)
[2017-09-07] MEDS ORDERED: HydrOXYzine PAMOATE 50 MG CAPSULE PO PRN (11:45)
[2017-09-07] MEDS ORDERED: LORazepam 2 MG TABLET PO PRN (12:00)
[2017-09-07 16:40] VITALS: BP 143/92
[2017-09-07] MEDS: THIAMINE HCL 100 MG TABLET PO SCH (16:40)
[2017-09-08] MEDS ORDERED: LORazepam 2 MG TABLET PO PRN (07:00)
[2017-09-08 08:40] VITALS: BP 113/63
[2017-09-08] MEDS: THIAMINE HCL 100 MG TABLET PO SCH ×2 (08:40→16:37)
[2017-09-08] MEDS: FOLIC ACID 1 MG TABLET PO SCH (08:40)
[2017-09-08] MEDS: MULTIVITAMINS WITH MINERALS, THERAPEUTIC TABLET PO SCH (08:40)
[2017-09-08] MEDS: OMEGA-3/DHA/EPA/FISH OIL 1,000 MG CAPSULE PO SCH (08:40)
[2017-09-08] MEDS: OMEPRAZOLE 20 MG CAPSULE PO SCH (08:40)
[2017-09-08] MEDS: LISINOPRIL 10 MG TABLET PO SCH (08:40)
[2017-09-08] MEDS: LORazepam 2 MG TABLET PO SCH ×4 (08:41→20:33)
[2017-09-08] MEDS ORDERED: NICOTINE 14 MG/24 HOUR PATCH TD SCH (09:00)
[2017-09-08] MEDS ORDERED: OMEGA-3/DHA/EPA/FISH OIL 1,000 MG CAPSULE PO SCH (09:00)
[2017-09-08] MEDS: BENZOCAINE/MENTHOL LOZENGE MM PRN (20:52)
[2017-09-09 08:45] VITALS: BP 117/63
[2017-09-09] MEDS: FOLIC ACID 1 MG TABLET PO SCH (08:45)
[2017-09-09] MEDS: THIAMINE HCL 100 MG TABLET PO SCH ×2 (08:45→16:43)
[2017-09-09] MEDS: OMEPRAZOLE 20 MG CAPSULE PO SCH (08:45)
[2017-09-09] MEDS: LORazepam 2 MG TABLET PO SCH ×4 (08:45→20:39)
[2017-09-09] MEDS: LISINOPRIL 10 MG TABLET PO SCH (08:45)
[2017-09-09] MEDS: OMEGA-3/DHA/EPA/FISH OIL 1,000 MG CAPSULE PO SCH (08:45)
[2017-09-09] MEDS: MULTIVITAMINS WITH MINERALS, THERAPEUTIC TABLET PO SCH (08:45)
[2017-09-09] MEDS: BENZOCAINE/MENTHOL LOZENGE MM PRN (09:19)
[2017-09-09 13:56] VITALS: BP 117/63
[2017-09-09 16:10] VITALS: BP 110/63
[2017-09-09] MEDS: TraZODone HCL 50 MG TABLET PO SCH (21:11)
[2017-09-09] MEDS: OLANZapine 10 MG TABLET PO SCH (21:11)
[2017-09-10] MEDS ORDERED: LORazepam 1 MG TABLET PO PRN (07:00)
[2017-09-10 08:33] LABS: BASOPHILS % (AUTO) 0.8 % (0.0-2.0); EOSINOPHILS % (AUTO) 2.9 % (1.0-6.0); HEMATOCRIT 45.7 % (41-53); HEMOGLOBIN 15.8 g/dL (13.5-17.5); LYMPHOCYTES # (AUTO) 2.6 K/uL (1.0-4.8); LYMPHOCYTES % (AUTO) 31.4 % (22.0-44.0); MEAN CORPUSCULAR HEMOGLOBIN 31.6 pg (26.0-34.0); MEAN CORPUSCULAR HGB CONC 34.6 G/dL (31.0-37.0); MEAN CORPUSCULAR VOLUME 91 fL (80-100); MONOCYTES # (AUTO) 0.6 K/uL (0.1-1.0); MONOCYTES % (AUTO) 6.8 % (2.0-9.0); NEUTROPHILS # (AUTO) 4.9 K/uL (1.8-7.7); NEUTROPHILS % (AUTO) 58.1 % (40.0-70.0); PLATELET COUNT (AUTO) 170 K/uL (150-450)
[2017-09-10 08:45] VITALS: BP 100/63
[2017-09-10 08:45] LABS: HEMOGLOBIN A1C 5.5 % (4.5-6.2)
[2017-09-10] MEDS: SERTRALINE HCL 50 MG TABLET PO SCH (08:56)
[2017-09-10] MEDS: OMEGA-3/DHA/EPA/FISH OIL 1,000 MG CAPSULE PO SCH (08:56)
[2017-09-10] MEDS: OMEPRAZOLE 20 MG CAPSULE PO SCH (08:56)
[2017-09-10] MEDS: LISINOPRIL 10 MG TABLET PO SCH (09:00)
[2017-09-10] MEDS ORDERED: LORazepam 1 MG TABLET PO SCH (09:00)
[2017-09-10 09:11] LABS: ALANINE AMINOTRANSFERASE 30 U/L (12-78); ALBUMIN 3.3 g/dL (3.4-5.0); ALKALINE PHOSPHATASE 73 U/L (46-116); ANION GAP 9 mmol/L (8-16); ASPARTATE AMINOTRANSFERASE 14 U/L (15-37); BILIRUBIN,TOTAL 0.2 mg/dL (0.1-1.0); CALCIUM, TOTAL 8.3 mg/dL (8.8-10.5); CARBON DIOXIDE 26 mmol/L (22-29); CHLORIDE 103 mmol/L (98-107); CHOL/HDL RATIO 3.9 (4.2-7.3); CHOLESTEROL 205 mg/dL (131-200); CREATININE 0.81 mg/dL (0.60-1.30); FREE T4 (FREE THYROXINE) 0.81 ng/dL (0.76-1.46); GLOMERULAR FILTR. RATE CALC > 60 mL/min (>60); GLUCOSE,RANDOM 84 mg/dL (70-110); HDL CHOLESTEROL 52 mg/dL (40-60); LDL CHOL (CALC.) 101 mg/dL (0-130); POTASSIUM 3.8 mmol/L (3.5-5.1); SODIUM SERUM 138 mmol/L (136-145); THYROID STIMULATING HORMONE 2.88 uIU/mL (0.36-3.74); TRIGLYCERIDES 262 mg/dL (15-150); UREA NITROGEN, BLOOD 16 mg/dL (7-18)
[2017-09-10] MEDS: BENZOCAINE/MENTHOL LOZENGE MM PRN (15:55)
[2017-09-10] MEDS: TraZODone HCL 50 MG TABLET PO SCH (20:41)
[2017-09-10] MEDS: OLANZapine 10 MG TABLET PO SCH (20:42)
[2017-09-11] MEDS ORDERED: LORazepam 1 MG TABLET PO PRN (07:00)
[2017-09-11 08:50] VITALS: BP 116/74
[2017-09-11] MEDS: LISINOPRIL 10 MG TABLET PO SCH (08:52)
[2017-09-11] MEDS: OMEGA-3/DHA/EPA/FISH OIL 1,000 MG CAPSULE PO SCH (08:52)
[2017-09-11] MEDS: OMEPRAZOLE 20 MG CAPSULE PO SCH (08:52)
[2017-09-11] MEDS: SERTRALINE HCL 50 MG TABLET PO SCH (08:52)
[2017-09-11] MEDS: BENZOCAINE/MENTHOL LOZENGE MM PRN (08:53)
[2017-09-11] MEDS ORDERED: LISI-661 PO (13:23)
== END 2017-09-11 14:00 | disposition home or self-care (01) | DRG 885 ==
LOC: B2X 09-07 05:10
PROVIDERS: ADMIT Psychiatry & Neurology Psychiatry; ATTEND Psychiatry & Neurology Psychiatry
DX: F20.0 Paranoid schizophrenia (principal); R45.851 Suicidal ideations; E55.9 Vitamin D deficiency, unspecified; F10.229 Alcohol dependence with intoxication, unspecified; F32.9 Major depressive disorder, single episode, unspecified; G47.00 Insomnia, unspecified; I10 Essential (primary) hypertension; J44.9 Chronic obstructive pulmonary disease, unspecified; K21.9 Gastro-esophageal reflux disease without esophagitis; K59.00 Constipation, unspecified; Z59.0 Homelessness; Z91.14 Patient's other noncompliance with medication regimen
CPT/HCPCS: 83036; 84439; 84443; J3420

== ENCOUNTER 2017-09-14 11:17 | Inpatient (IN) | payer MEDICARE, MEDICAID ==
[~2017-09-14] VITALS: Ht 180.3 cm; Wt 87.6 kg
[~2017-09-14 11:17] MED LIST changes: -ALBU8HFA IH; -DSS100 PO; +LISI-661 PO; -NALT50TA PO
[2017-09-14 15:36] VITALS: BP 134/91
[2017-09-14] MEDS ORDERED: PNEUMOCOCCAL VACCINE POLYVALENT 0.5 ML VIAL [PPSV23] IM ONE (17:30)
[2017-09-14] MEDS ORDERED: PETROLATUM,WHITE 71 GM JELLY TP PRN (17:45)
[2017-09-14] MEDS ORDERED: BENZOCAINE/MENTHOL LOZENGE MM PRN (17:45)
[2017-09-14] MEDS ORDERED: IBUPROFEN 600 MG TABLET PO PRN (17:45)
[2017-09-14] MEDS ORDERED: LOPERAMIDE HCL 2 MG CAPSULE PO PRN (17:45)
[2017-09-14] MEDS ORDERED: ACETAMINOPHEN 325 MG TABLET PO PRN (17:45)
[2017-09-14] MEDS ORDERED: MAGNESIUM HYDROXIDE SUSPENSION 30 ML UDCUP PO PRN (17:45)
[2017-09-14] MEDS ORDERED: MAG HYDROX/AL HYDROX/SIMETH ES 30 ML SUSPENSION UDCUP PO PRN (17:45)
[2017-09-14] MEDS ORDERED: ONDANSETRON HCL 4 MG TABLET PO PRN (17:45)
[2017-09-14] MEDS ORDERED: BACITRACIN 28.4 GM OINTMENT TP PRN (17:45)
[2017-09-14] MEDS ORDERED: CloNIDine HCL 0.1 MG TABLET PO PRN (17:45)
[2017-09-14] MEDS ORDERED: ALBUTEROL SULFATE HFA 90 MCG/PUFF 8 GM INHALER IH PRN (17:45)
[2017-09-14] MEDS ORDERED: ONDANSETRON HCL 4 MG/2 ML VIAL IM ONE (17:45)
[2017-09-14 18:00] VITALS: BP 138/95
[2017-09-14 19:00] VITALS: BP 131/89
[2017-09-14 20:00] VITALS: BP 132/84
[2017-09-15 00:05] VITALS: BP 145/91
[2017-09-15] MEDS ORDERED: CYANOCOBALAMIN 1,000 MCG/ML VIAL IM ONE (00:15)
[2017-09-15] MEDS ORDERED: GuaiFENesin/D-METHORPHAN [SUGAR-FREE] 200-20MG/10 ML SYRUP UDCUP PO PRN (00:15)
[2017-09-15] MEDS ORDERED: LORazepam 2 MG TABLET PO PRN (00:15)
[2017-09-15] MEDS ORDERED: LOPERAMIDE HCL 2 MG CAPSULE PO PRN (00:15)
[2017-09-15] MEDS ORDERED: PROMETHAZINE HCL 25 MG TABLET PO PRN (00:15)
[2017-09-15] MEDS ORDERED: HydrOXYzine PAMOATE 50 MG CAPSULE PO PRN (00:15)
[2017-09-15 08:32] VITALS: BP 136/88
[2017-09-15] MEDS: THIAMINE HCL 100 MG TABLET PO SCH ×2 (08:44→16:09)
[2017-09-15] MEDS: DOCUSATE SODIUM 100 MG CAPSULE PO SCH (08:45)
[2017-09-15] MEDS: MULTIVITAMINS WITH MINERALS, THERAPEUTIC TABLET PO SCH (08:45)
[2017-09-15] MEDS: OMEPRAZOLE 20 MG CAPSULE PO SCH (08:45)
[2017-09-15] MEDS: FOLIC ACID 1 MG TABLET PO SCH (08:45)
[2017-09-15] MEDS: CarBAMazepine 200 MG TABLET PO SCH ×2 (08:45→16:09)
[2017-09-15 16:24] VITALS: BP 112/71
[2017-09-15 16:26] VITALS: BP 112/71
[2017-09-16 01:18] VITALS: BP_SYST 135; BP_DIAS 82; BP_DIAS 87
[2017-09-16] MEDS: ESZOPICLONE 2 MG TABLET PO PRN (01:23)
[2017-09-16] MEDS ORDERED: LORazepam 2 MG TABLET PO PRN (07:00)
[2017-09-16] MEDS: CarBAMazepine 200 MG TABLET PO SCH ×2 (09:23→17:08)
[2017-09-16] MEDS: FOLIC ACID 1 MG TABLET PO SCH (09:23)
[2017-09-16] MEDS: MULTIVITAMINS WITH MINERALS, THERAPEUTIC TABLET PO SCH (09:23)
[2017-09-16] MEDS: LORazepam 2 MG TABLET PO SCH ×4 (09:24→20:33)
[2017-09-16] MEDS: OMEPRAZOLE 20 MG CAPSULE PO SCH (09:24)
[2017-09-16] MEDS: THIAMINE HCL 100 MG TABLET PO SCH ×2 (09:24→17:08)
[2017-09-16] MEDS: DOCUSATE SODIUM 100 MG CAPSULE PO SCH (09:24)
[2017-09-16 16:00] VITALS: BP 132/84
[2017-09-16 16:28] VITALS: BP 132/84
[2017-09-17 02:31] VITALS: BP 140/88
[2017-09-17 02:32] VITALS: BP 140/88
[2017-09-17 08:48] LABS: BASOPHILS % (AUTO) 0.8 % (0.0-2.0); EOSINOPHILS % (AUTO) 1.4 % (1.0-6.0); HEMATOCRIT 41.4 % (41-53); HEMOGLOBIN 14.5 g/dL (13.5-17.5); LYMPHOCYTES # (AUTO) 1.8 K/uL (1.0-4.8); LYMPHOCYTES % (AUTO) 22.8 % (22.0-44.0); MEAN CORPUSCULAR HEMOGLOBIN 31.6 pg (26.0-34.0); MEAN CORPUSCULAR HGB CONC 34.9 G/dL (31.0-37.0); MEAN CORPUSCULAR VOLUME 91 fL (80-100); MONOCYTES # (AUTO) 0.5 K/uL (0.1-1.0); NEUTROPHILS # (AUTO) 5.3 K/uL (1.8-7.7); PLATELET COUNT (AUTO) 189 K/uL (150-450); RED BLOOD CELL COUNT(AUTO) 4.57 MIL/uL (4.50-5.90); RED CELL DISTRIBUTION WIDTH 13.7 % (11.5-14.5)
[2017-09-17] MEDS: DOCUSATE SODIUM 100 MG CAPSULE PO SCH (09:09)
[2017-09-17] MEDS: CarBAMazepine 200 MG TABLET PO SCH ×2 (09:09→16:31)
[2017-09-17] MEDS: OMEPRAZOLE 20 MG CAPSULE PO SCH (09:09)
[2017-09-17] MEDS: MULTIVITAMINS WITH MINERALS, THERAPEUTIC TABLET PO SCH (09:09)
[2017-09-17] MEDS: LORazepam 2 MG TABLET PO SCH ×4 (09:10→20:34)
[2017-09-17] MEDS: THIAMINE HCL 100 MG TABLET PO SCH ×2 (09:10→16:31)
[2017-09-17] MEDS: FOLIC ACID 1 MG TABLET PO SCH (09:10)
[2017-09-17 09:12] VITALS: BP 122/71
[2017-09-17 09:21] LABS: ALANINE AMINOTRANSFERASE 30 U/L (12-78); ALKALINE PHOSPHATASE 83 U/L (46-116); ANION GAP 7 mmol/L (8-16); ASPARTATE AMINOTRANSFERASE 17 U/L (15-37); BILIRUBIN,TOTAL 0.2 mg/dL (0.1-1.0); CALCIUM, TOTAL 8.6 mg/dL (8.8-10.5); CARBON DIOXIDE 26 mmol/L (22-29); CHLORIDE 105 mmol/L (98-107); CHOL/HDL RATIO 2.7 (4.2-7.3); CHOLESTEROL 160 mg/dL (131-200); CREATININE 0.81 mg/dL (0.60-1.30); GLOMERULAR FILTR. RATE CALC > 60 mL/min (>60); GLUCOSE,RANDOM 109 mg/dL (70-110); HDL CHOLESTEROL 60 mg/dL (40-60); LDL CHOL (CALC.) 50 mg/dL (0-130); POTASSIUM 4.3 mmol/L (3.5-5.1); SODIUM SERUM 138 mmol/L (136-145); TRIGLYCERIDES 250 mg/dL (15-150); UREA NITROGEN, BLOOD 18 mg/dL (7-18)
[2017-09-17 09:42] LABS: FREE T4 (FREE THYROXINE) 0.89 ng/dL (0.76-1.46)
[2017-09-17 12:00] VITALS: BP 117/77
[2017-09-17 16:00] VITALS: BP 110/63
[2017-09-17 16:14] VITALS: BP 110/63
[2017-09-18] MEDS: ESZOPICLONE 2 MG TABLET PO PRN (01:47)
[2017-09-18] MEDS ORDERED: LORazepam 1 MG TABLET PO PRN (07:00)
[2017-09-18 08:00] VITALS: BP 109/65
[2017-09-18] MEDS: LORazepam 1 MG TABLET PO SCH ×4 (08:32→22:04)
[2017-09-18] MEDS: DOCUSATE SODIUM 100 MG CAPSULE PO SCH (08:32)
[2017-09-18] MEDS: MULTIVITAMINS WITH MINERALS, THERAPEUTIC TABLET PO SCH (08:32)
[2017-09-18] MEDS: OMEPRAZOLE 20 MG CAPSULE PO SCH (08:32)
[2017-09-18] MEDS: OXYBUTYNIN CHLORIDE 5 MG ER TABLET PO SCH (08:32)
[2017-09-18] MEDS: CarBAMazepine 200 MG TABLET PO SCH ×2 (08:32→18:44)
[2017-09-18] MEDS: THIAMINE HCL 100 MG TABLET PO SCH ×2 (08:32→17:35)
[2017-09-18] MEDS: FOLIC ACID 1 MG TABLET PO SCH (08:32)
[2017-09-18 09:07] LABS: APPEARANCE,URINE CLEAR (CLEAR); BILIRUBIN,URINE NEGATIVE (NEGATIVE); GLUCOSE, URINE (UA) NEGATIVE (NEGATIVE); KETONES,URINE NEGATIVE (NEGATIVE); LEUKOCYTE ESTERASE ,URINE NEGATIVE (NEGATIVE); NITRATE,URINE NEGATIVE (NEGATIVE); OCCULT BLOOD,URINE SMALL (NEGATIVE); PROTEIN,URINE NEGATIVE (NEGATIVE); UROBILINOGEN,URINE 0.2 mg/dL (<=1.0)
[2017-09-18 09:14] LABS: BACTERIA,URINE None Seen /HPF (None Seen); RBC,URINE 0-2 /HPF (0-2); SQUAMOUS EPITHELIAL CELL,UR None Seen /LPF (None Seen); WBC,URINE 0-2 /HPF (0-5)
[2017-09-18 16:33] VITALS: BP 122/86
[2017-09-18 22:33] VITALS: BP 122/86
[2017-09-19] MEDS: ESZOPICLONE 2 MG TABLET PO PRN (01:33)
[2017-09-19 04:08] VITALS: BP 124/93
[2017-09-19 04:09] VITALS: BP 124/93
[2017-09-19] MEDS ORDERED: LORazepam 1 MG TABLET PO PRN (07:00)
[2017-09-19 08:22] VITALS: BP 117/89
[2017-09-19] MEDS: OMEPRAZOLE 20 MG CAPSULE PO SCH (08:40)
[2017-09-19] MEDS: DOCUSATE SODIUM 100 MG CAPSULE PO SCH (08:40)
[2017-09-19] MEDS: OXYBUTYNIN CHLORIDE 5 MG ER TABLET PO SCH (08:41)
[2017-09-19] MEDS: CarBAMazepine 200 MG TABLET PO SCH ×2 (08:41→16:12)
[2017-09-19] MEDS: MULTIVITAMINS WITH MINERALS, THERAPEUTIC TABLET PO SCH (08:41)
[2017-09-19] MEDS: FOLIC ACID 1 MG TABLET PO SCH (08:41)
[2017-09-19] MEDS: THIAMINE HCL 100 MG TABLET PO SCH ×2 (08:41→16:12)
[2017-09-19 16:08] VITALS: BP 120/73
[2017-09-19] MEDS: OLANZapine 5 MG TABLET PO SCH (20:37)
[2017-09-20] MEDS: OMEPRAZOLE 20 MG CAPSULE PO SCH (08:19)
[2017-09-20] MEDS: DOCUSATE SODIUM 100 MG CAPSULE PO SCH (08:19)
[2017-09-20] MEDS: CHOLECALCIFEROL (VIT D3) 1,000 UNITS TABLET PO SCH (08:19)
[2017-09-20] MEDS: MULTIVITAMINS WITH MINERALS, THERAPEUTIC TABLET PO SCH (08:19)
[2017-09-20] MEDS: CarBAMazepine 200 MG TABLET PO SCH ×2 (08:19→16:02)
[2017-09-20] MEDS: THIAMINE HCL 100 MG TABLET PO SCH ×2 (08:19→16:02)
[2017-09-20] MEDS: OXYBUTYNIN CHLORIDE 5 MG ER TABLET PO SCH (08:20)
[2017-09-20] MEDS: FOLIC ACID 1 MG TABLET PO SCH (08:20)
[2017-09-20 12:09] LABS: HIV 1-2 SCREEN 4TH GEN W/RFLX Non Reactive (Non Reactive)
[2017-09-20] MEDS: OLANZapine 5 MG TABLET PO SCH (20:25)
[2017-09-20] MEDS: ESZOPICLONE 2 MG TABLET PO PRN (20:41)
[2017-09-21 06:53] VITALS: BP 140/99
[2017-09-21] MEDS: CHOLECALCIFEROL (VIT D3) 1,000 UNITS TABLET PO SCH (09:04)
[2017-09-21] MEDS: DOCUSATE SODIUM 100 MG CAPSULE PO SCH (09:04)
[2017-09-21] MEDS: OXYBUTYNIN CHLORIDE 5 MG ER TABLET PO SCH (09:04)
[2017-09-21] MEDS: FOLIC ACID 1 MG TABLET PO SCH (09:04)
[2017-09-21] MEDS: OMEPRAZOLE 20 MG CAPSULE PO SCH (09:04)
[2017-09-21] MEDS: THIAMINE HCL 100 MG TABLET PO SCH ×2 (09:04→16:23)
[2017-09-21] MEDS: MULTIVITAMINS WITH MINERALS, THERAPEUTIC TABLET PO SCH (09:05)
[2017-09-21] MEDS: CarBAMazepine 200 MG TABLET PO SCH ×2 (09:05→16:23)
[2017-09-21 17:06] VITALS: BP 148/94
[2017-09-21] MEDS: OLANZapine 5 MG TABLET PO SCH (20:04)
[2017-09-21] MEDS: ESZOPICLONE 2 MG TABLET PO PRN (21:30)
[2017-09-22 05:00] VITALS: BP 111/66
[2017-09-22] MEDS: CarBAMazepine 200 MG TABLET PO SCH ×2 (10:11→16:11)
[2017-09-22] MEDS: MULTIVITAMINS WITH MINERALS, THERAPEUTIC TABLET PO SCH (10:11)
[2017-09-22] MEDS: THIAMINE HCL 100 MG TABLET PO SCH ×2 (10:11→16:11)
[2017-09-22] MEDS: OXYBUTYNIN CHLORIDE 5 MG ER TABLET PO SCH (10:11)
[2017-09-22] MEDS: OMEPRAZOLE 20 MG CAPSULE PO SCH (10:12)
[2017-09-22] MEDS: CHOLECALCIFEROL (VIT D3) 1,000 UNITS TABLET PO SCH (10:12)
[2017-09-22] MEDS: FOLIC ACID 1 MG TABLET PO SCH (10:12)
[2017-09-22] MEDS: DOCUSATE SODIUM 100 MG CAPSULE PO SCH (10:12)
[2017-09-22] MEDS: OLANZapine 5 MG TABLET PO SCH (20:54)
[2017-09-23 08:05] VITALS: BP 155/87
[2017-09-23] MEDS: DOCUSATE SODIUM 100 MG CAPSULE PO SCH (08:26)
[2017-09-23] MEDS: MULTIVITAMINS WITH MINERALS, THERAPEUTIC TABLET PO SCH (08:27)
[2017-09-23] MEDS: OMEPRAZOLE 20 MG CAPSULE PO SCH (08:27)
[2017-09-23] MEDS: FOLIC ACID 1 MG TABLET PO SCH (08:27)
[2017-09-23] MEDS: OXYBUTYNIN CHLORIDE 5 MG ER TABLET PO SCH (08:27)
[2017-09-23] MEDS: CarBAMazepine 200 MG TABLET PO SCH ×2 (08:27→17:07)
[2017-09-23] MEDS: THIAMINE HCL 100 MG TABLET PO SCH ×2 (08:27→17:07)
[2017-09-23] MEDS: CHOLECALCIFEROL (VIT D3) 1,000 UNITS TABLET PO SCH (08:27)
[2017-09-23] MEDS: OLANZapine 5 MG TABLET PO SCH (20:53)
[2017-09-24] MEDS: DOCUSATE SODIUM 100 MG CAPSULE PO SCH (08:54)
[2017-09-24] MEDS: OXYBUTYNIN CHLORIDE 5 MG ER TABLET PO SCH (08:54)
[2017-09-24] MEDS: MULTIVITAMINS WITH MINERALS, THERAPEUTIC TABLET PO SCH (08:55)
[2017-09-24] MEDS: OMEPRAZOLE 20 MG CAPSULE PO SCH (08:55)
[2017-09-24] MEDS: THIAMINE HCL 100 MG TABLET PO SCH (08:55)
[2017-09-24] MEDS: FOLIC ACID 1 MG TABLET PO SCH (08:55)
[2017-09-24] MEDS: CarBAMazepine 200 MG TABLET PO SCH (08:55)
[2017-09-24] MEDS: CHOLECALCIFEROL (VIT D3) 1,000 UNITS TABLET PO SCH (08:56)
[2017-09-24] MEDS ORDERED: OLAN5TAB2 PO (10:27)
[2017-09-24] MEDS ORDERED: VITAD1000 PO (10:29)
[2017-09-24] MEDS ORDERED: CARB200T6 PO (10:29)
[2017-09-24] MEDS ORDERED: DSS100 PO (10:30)
[2017-09-24] MEDS ORDERED: MULT-1239 PO (10:30)
[2017-09-24] MEDS ORDERED: THIA100T67 PO (10:31)
[2017-09-24] MEDS ORDERED: OXYB5XL PO (10:31)
== END 2017-09-24 12:15 | disposition home or self-care (01) | DRG 885 ==
LOC: B2X 16:12 → 3EX 09-19 18:10
PROVIDERS: ADMIT Psychiatry & Neurology Psychiatry; ATTEND Psychiatry & Neurology Psychiatry
DX: F20.0 Paranoid schizophrenia (principal); F10.230 Alcohol dependence with withdrawal, uncomplicated; R45.851 Suicidal ideations; I10 Essential (primary) hypertension; K21.9 Gastro-esophageal reflux disease without esophagitis; F12.20 Cannabis dependence, uncomplicated; J44.9 Chronic obstructive pulmonary disease, unspecified; G47.00 Insomnia, unspecified; F41.9 Anxiety disorder, unspecified; F17.200 Nicotine dependence, unspecified, uncomplicated; R45.87 Impulsiveness; K59.00 Constipation, unspecified; E55.9 Vitamin D deficiency, unspecified; Z71.41 Alcohol abuse counseling and surveillance of alcoholic; Z59.0 Homelessness; Z91.19 Patient's noncompliance with other medical treatment and regimen; Z56.0 Unemployment, unspecified; Z79.899 Other long term (current) drug therapy
CPT/HCPCS: 80074; 82306; 84153; 84439; 84443; 86592; 87081; 87389; G0480; J2405; J3420; Q0162

== ENCOUNTER 2017-10-12 10:16 | Inpatient (IN) | payer MEDICARE, MEDICAID ==
[~2017-10-12] VITALS: Ht 180.3 cm; Wt 84.6 kg
[~2017-10-12 10:16] MED LIST changes: +CARB200T6 PO; +DSS100 PO; -LISI-661 PO; +MULT-1239 PO; -OLAN10TA20 PO; +OLAN5TAB2 PO; -OMEG-135 PO; +OXYB5XL PO; -SERT50TA12 PO; +THIA100T67 PO; -TRAZ-219 PO; +VITAD1000 PO
[2017-10-12 10:45] LABS: BASOPHILS % (AUTO) 0.8 % (0.0-2.0); EOSINOPHILS % (AUTO) 1.8 % (1.0-6.0); HEMATOCRIT 42.8 % (41-53); HEMOGLOBIN 15.1 g/dL (13.5-17.5); LYMPHOCYTES # (AUTO) 3.3 K/uL (1.0-4.8); LYMPHOCYTES % (AUTO) 32.4 % (22.0-44.0); MEAN CORPUSCULAR HEMOGLOBIN 31.6 pg (26.0-34.0); MEAN CORPUSCULAR HGB CONC 35.2 G/dL (31.0-37.0); MEAN CORPUSCULAR VOLUME 90 fL (80-100); MONOCYTES # (AUTO) 0.6 K/uL (0.1-1.0); MONOCYTES % (AUTO) 6.4 % (2.0-9.0); NEUTROPHILS # (AUTO) 5.9 K/uL (1.8-7.7); NEUTROPHILS % (AUTO) 58.6 % (40.0-70.0); PLATELET COUNT (AUTO) 206 K/uL (150-450); RED BLOOD CELL COUNT(AUTO) 4.77 MIL/uL (4.50-5.90); RED CELL DISTRIBUTION WIDTH 14.2 % (11.5-14.5)
[2017-10-12 10:55] LABS: ANION GAP 8 mmol/L (8-16); CALCIUM, TOTAL 8.6 mg/dL (8.8-10.5); CARBON DIOXIDE 27 mmol/L (22-29); CHLORIDE 105 mmol/L (98-107); CREATININE 0.96 mg/dL (0.60-1.30); GLOMERULAR FILTR. RATE CALC > 60 mL/min (>60); GLUCOSE,RANDOM 131 mg/dL (70-110); POTASSIUM 3.4 mmol/L (3.5-5.1); SODIUM SERUM 140 mmol/L (136-145); UREA NITROGEN, BLOOD 10 mg/dL (7-18)
[2017-10-12 11:00] LABS: ALANINE AMINOTRANSFERASE 32 U/L (12-78); ALBUMIN 3.5 g/dL (3.4-5.0); ALKALINE PHOSPHATASE 84 U/L (46-116); ASPARTATE AMINOTRANSFERASE 18 U/L (15-37); BILIRUBIN,TOTAL 0.4 mg/dL (0.1-1.0); TOTAL PROTEIN, SERUM 7.3 g/dL (6.4-8.2)
[2017-10-12 12:04] LABS: AMPHET/METH SCREEN,URINE NEGATIVE (NEGATIVE); BARBITURATE SCREEN, URINE NEGATIVE (NEGATIVE); BENZODIAZEPINES SCREEN,URINE NEGATIVE (NEGATIVE); CANNABINOID SCREEN,URINE NEGATIVE (NEGATIVE); COCAINE SCREEN,URINE NEGATIVE (NEGATIVE); METHADONE SCREEN, URINE NEGATIVE (NEGATIVE); OPIATE SCREEN,URINE NEGATIVE (NEGATIVE)
[2017-10-12 12:07] LABS: PHENCYCLIDINE SCREEN,URINE NEGATIVE (NEGATIVE)
[2017-10-12] MEDS ORDERED: POTASSIUM CHLORIDE 20 MEQ ER TABLET PO ONE (12:15)
[2017-10-12] MEDS ORDERED: HALOPERIDOL 5 MG TABLET PO ONE (13:00)
[2017-10-12] MEDS ORDERED: LORazepam 2 MG TABLET PO ONE (13:00)
[2017-10-12] MEDS ORDERED: ZOLPIDEM TARTRATE 10 MG TABLET PO PRN (16:15)
[2017-10-12] MEDS ORDERED: HALOPERIDOL 5 MG TABLET PO PRN (16:15)
[2017-10-12 19:14] VITALS: BP 133/89
[2017-10-12] MEDS ORDERED: ACETAMINOPHEN 325 MG TABLET PO PRN (19:30)
[2017-10-12] MEDS ORDERED: IBUPROFEN 600 MG TABLET PO PRN (19:30)
[2017-10-12] MEDS ORDERED: CloNIDine HCL 0.1 MG TABLET PO PRN (19:30)
[2017-10-12] MEDS ORDERED: BENZOCAINE/MENTHOL LOZENGE MM PRN (19:30)
[2017-10-12] MEDS ORDERED: PETROLATUM,WHITE 71 GM JELLY TP PRN (19:30)
[2017-10-12] MEDS ORDERED: BACITRACIN 28.4 GM OINTMENT TP PRN (19:30)
[2017-10-12] MEDS ORDERED: LOPERAMIDE HCL 2 MG CAPSULE PO PRN (19:30)
[2017-10-12] MEDS ORDERED: ALBUTEROL SULFATE HFA 90 MCG/PUFF 8 GM INHALER IH PRN (19:30)
[2017-10-12] MEDS ORDERED: MAGNESIUM HYDROXIDE SUSPENSION 30 ML UDCUP PO PRN (19:30)
[2017-10-12] MEDS ORDERED: ONDANSETRON HCL 4 MG TABLET PO PRN (19:30)
[2017-10-12] MEDS ORDERED: MAG HYDROX/AL HYDROX/SIMETH ES 30 ML SUSPENSION UDCUP PO PRN (19:30)
[2017-10-12] MEDS: OLANZapine 5 MG TABLET PO SCH (21:28)
[2017-10-13] MEDS ORDERED: DOCUSATE SODIUM 100 MG CAPSULE PO SCH (09:00)
[2017-10-13] MEDS: DOCUSATE SODIUM 100 MG CAPSULE PO SCH (09:59)
[2017-10-13] MEDS: MULTIVITAMINS WITH MINERALS, THERAPEUTIC TABLET PO SCH (10:00)
[2017-10-13] MEDS: THIAMINE HCL 100 MG TABLET PO SCH ×2 (10:00→16:35)
[2017-10-13] MEDS: OXYBUTYNIN CHLORIDE 5 MG TABLET PO SCH (10:00)
[2017-10-13] MEDS: OMEPRAZOLE 20 MG CAPSULE PO SCH (10:00)
[2017-10-13] MEDS: CarBAMazepine 200 MG TABLET PO SCH ×2 (10:00→16:34)
[2017-10-13] MEDS: CHOLECALCIFEROL (VIT D3) 1,000 UNITS TABLET PO SCH (10:01)
[2017-10-13 17:14] VITALS: BP 146/90
[2017-10-13] MEDS: OLANZapine 5 MG TABLET PO SCH (21:18)
[2017-10-14] MEDS: LORazepam 2 MG TABLET PO PRN (02:47)
[2017-10-14 03:17] VITALS: BP 114/92
[2017-10-14] MEDS: MULTIVITAMINS WITH MINERALS, THERAPEUTIC TABLET PO SCH (09:48)
[2017-10-14] MEDS: DOCUSATE SODIUM 100 MG CAPSULE PO SCH (09:48)
[2017-10-14] MEDS: CarBAMazepine 200 MG TABLET PO SCH ×2 (09:48→16:14)
[2017-10-14] MEDS: CHOLECALCIFEROL (VIT D3) 1,000 UNITS TABLET PO SCH (09:48)
[2017-10-14] MEDS: OXYBUTYNIN CHLORIDE 5 MG TABLET PO SCH (09:48)
[2017-10-14] MEDS: THIAMINE HCL 100 MG TABLET PO SCH ×2 (09:48→16:14)
[2017-10-14] MEDS: OMEPRAZOLE 20 MG CAPSULE PO SCH (09:48)
[2017-10-14] MEDS: OLANZapine 5 MG TABLET PO SCH (21:16)
[2017-10-15 08:00] VITALS: BP 134/72
[2017-10-15] MEDS: OXYBUTYNIN CHLORIDE 5 MG TABLET PO SCH (08:49)
[2017-10-15] MEDS: CHOLECALCIFEROL (VIT D3) 1,000 UNITS TABLET PO SCH (08:49)
[2017-10-15] MEDS: CarBAMazepine 200 MG TABLET PO SCH ×2 (08:49→16:16)
[2017-10-15] MEDS: THIAMINE HCL 100 MG TABLET PO SCH ×2 (08:49→16:16)
[2017-10-15] MEDS: MULTIVITAMINS WITH MINERALS, THERAPEUTIC TABLET PO SCH (08:49)
[2017-10-15] MEDS: OMEPRAZOLE 20 MG CAPSULE PO SCH (08:49)
[2017-10-15] MEDS: DOCUSATE SODIUM 100 MG CAPSULE PO SCH (08:49)
[2017-10-15] MEDS: LORazepam 2 MG TABLET PO PRN (16:16)
[2017-10-15] MEDS ORDERED: OLANZapine 10 MG TABLET PO SCH (21:00)
[2017-10-15 21:18] VITALS: BP 114/79
[2017-10-16] MEDS: CHOLECALCIFEROL (VIT D3) 1,000 UNITS TABLET PO SCH (09:05)
[2017-10-16] MEDS: CarBAMazepine 200 MG TABLET PO SCH (09:05)
[2017-10-16] MEDS: THIAMINE HCL 100 MG TABLET PO SCH (09:05)
[2017-10-16] MEDS: MULTIVITAMINS WITH MINERALS, THERAPEUTIC TABLET PO SCH (09:05)
[2017-10-16] MEDS: OMEPRAZOLE 20 MG CAPSULE PO SCH (09:05)
[2017-10-16] MEDS: OXYBUTYNIN CHLORIDE 5 MG TABLET PO SCH (09:05)
[2017-10-16] MEDS: DOCUSATE SODIUM 100 MG CAPSULE PO SCH (09:06)
[2017-10-16] MEDS ORDERED: NALT50TA PO (13:08)
== END 2017-10-16 15:11 | disposition home or self-care (01) | DRG 885 ==
LOC: EMS 10:18 → 3EI 17:12
PROVIDERS: ADMIT Psychiatry & Neurology Psychiatry; ATTEND Psychiatry & Neurology Psychiatry
DX: F20.0 Paranoid schizophrenia (principal); R45.851 Suicidal ideations; J44.9 Chronic obstructive pulmonary disease, unspecified; F10.20 Alcohol dependence, uncomplicated; K21.9 Gastro-esophageal reflux disease without esophagitis; F17.210 Nicotine dependence, cigarettes, uncomplicated; I10 Essential (primary) hypertension; G47.00 Insomnia, unspecified; F12.90 Cannabis use, unspecified, uncomplicated; F32.9 Major depressive disorder, single episode, unspecified; F41.9 Anxiety disorder, unspecified; K59.00 Constipation, unspecified; G40.909 Epilepsy, unspecified, not intractable, without status epilepticus; E87.6 Hypokalemia; Z91.14 Patient's other noncompliance with medication regimen; Z59.0 Homelessness
CPT/HCPCS: 87081; 99285; G0480

== ENCOUNTER 2017-11-03 18:20 | Inpatient (IN) | payer MEDICARE, MEDICAID ==
[~2017-11-03] VITALS: Ht 180.3 cm; Wt 87.3 kg
[~2017-11-03 18:20] MED LIST changes: +DIPH25 PO; +FOLI1 PO; -MULT-1239 PO; +NALT50TA PO; +NALT50TA6 PO; -OLAN5TAB2 PO; +OLAN7.5T2 PO; +OLAN7.5T9 PO; -THIA100T67 PO; -VITAD1000 PO
[2017-11-03 21:32] LABS: BASOPHILS % (AUTO) 0.9 % (0.0-2.0); EOSINOPHILS % (AUTO) 2.5 % (1.0-6.0); HEMOGLOBIN 14.8 g/dL (13.5-17.5); LYMPHOCYTES # (AUTO) 3.3 K/uL (1.0-4.8); LYMPHOCYTES % (AUTO) 33.7 % (22.0-44.0); MEAN CORPUSCULAR HGB CONC 34.5 G/dL (31.0-37.0); MEAN CORPUSCULAR VOLUME 93 fL (80-100); MONOCYTES # (AUTO) 0.9 K/uL (0.1-1.0); MONOCYTES % (AUTO) 8.7 % (2.0-9.0); NEUTROPHILS # (AUTO) 5.4 K/uL (1.8-7.7); NEUTROPHILS % (AUTO) 54.2 % (40.0-70.0); PLATELET COUNT (AUTO) 227 K/uL (150-450); RED BLOOD CELL COUNT(AUTO) 4.63 MIL/uL (4.50-5.90); RED CELL DISTRIBUTION WIDTH 14.3 % (11.5-14.5)
[2017-11-03 21:44] LABS: ANION GAP 11 mmol/L (8-16); CALCIUM, TOTAL 8.7 mg/dL (8.8-10.5); CARBON DIOXIDE 25 mmol/L (22-29); CHLORIDE 104 mmol/L (98-107); CREATININE 0.95 mg/dL (0.60-1.30); GLOMERULAR FILTR. RATE CALC > 60 mL/min (>60); GLUCOSE,RANDOM 91 mg/dL (70-110); POTASSIUM 3.8 mmol/L (3.5-5.1); SODIUM SERUM 140 mmol/L (136-145); UREA NITROGEN, BLOOD 13 mg/dL (7-18)
[2017-11-03 21:51] LABS: ALANINE AMINOTRANSFERASE 120 U/L (12-78); ALBUMIN 3.5 g/dL (3.4-5.0); ALKALINE PHOSPHATASE 91 U/L (46-116); ASPARTATE AMINOTRANSFERASE 47 U/L (15-37); BILIRUBIN,TOTAL 0.2 mg/dL (0.1-1.0); TOTAL PROTEIN, SERUM 7.1 g/dL (6.4-8.2)
[2017-11-03] MEDS ORDERED: LORazepam 2 MG TABLET PO ONE (22:00)
[2017-11-03] MEDS ORDERED: HALOPERIDOL 5 MG TABLET PO ONE (22:00)
[2017-11-03] MEDS ORDERED: DiphenhydrAMINE HCL 50 MG CAPSULE PO ONE (22:00)
[2017-11-03 22:11] LABS: CARBAMAZEPINE (TEGRETOL) 1.1 mcg/mL (4.0-12.0)
[2017-11-03] MEDS ORDERED: ZOLPIDEM TARTRATE 10 MG TABLET PO PRN (22:15)
[2017-11-03 22:29] LABS: AMPHET/METH SCREEN,URINE NEGATIVE (NEGATIVE); BARBITURATE SCREEN, URINE NEGATIVE (NEGATIVE); BENZODIAZEPINES SCREEN,URINE NEGATIVE (NEGATIVE); CANNABINOID SCREEN,URINE NEGATIVE (NEGATIVE); COCAINE SCREEN,URINE NEGATIVE (NEGATIVE); METHADONE SCREEN, URINE NEGATIVE (NEGATIVE); OPIATE SCREEN,URINE NEGATIVE (NEGATIVE)
[2017-11-03 22:33] LABS: PHENCYCLIDINE SCREEN,URINE NEGATIVE (NEGATIVE)
[2017-11-04 00:25] VITALS: BP 142/87
[2017-11-04] MEDS ORDERED: PNEUMOCOCCAL VACCINE POLYVALENT 0.5 ML VIAL [PPSV23] IM ONE (01:30)
[2017-11-04 09:05] VITALS: BP 108/73
[2017-11-04 17:17] VITALS: BP 115/70
[2017-11-04] MEDS: OLANZapine 5 MG RAPDIS TABLET PO PRN (17:34)
[2017-11-04] MEDS: LORazepam 2 MG TABLET PO PRN (17:35)
[2017-11-04] MEDS ORDERED: ACETAMINOPHEN 325 MG TABLET PO PRN (20:30)
[2017-11-04] MEDS ORDERED: MAG HYDROX/AL HYDROX/SIMETH ES 30 ML SUSPENSION UDCUP PO PRN (20:30)
[2017-11-04] MEDS ORDERED: CloNIDine HCL 0.1 MG TABLET PO PRN (20:30)
[2017-11-04] MEDS ORDERED: MAGNESIUM HYDROXIDE SUSPENSION 30 ML UDCUP PO PRN (20:30)
[2017-11-04] MEDS ORDERED: PETROLATUM,WHITE 71 GM JELLY TP PRN (20:30)
[2017-11-04] MEDS ORDERED: ONDANSETRON HCL 4 MG TABLET PO PRN (20:30)
[2017-11-04] MEDS ORDERED: BACITRACIN 28.4 GM OINTMENT TP PRN (20:30)
[2017-11-04] MEDS ORDERED: BENZOCAINE/MENTHOL LOZENGE MM PRN (20:30)
[2017-11-04] MEDS ORDERED: LOPERAMIDE HCL 2 MG CAPSULE PO PRN (20:30)
[2017-11-04] MEDS ORDERED: IBUPROFEN 600 MG TABLET PO PRN (20:30)
[2017-11-04] MEDS ORDERED: ALBUTEROL SULFATE HFA 90 MCG/PUFF 8 GM INHALER IH PRN (20:30)
[2017-11-04] MEDS: OLANZapine 5 MG RAPDIS TABLET PO SCH (20:41)
[2017-11-05 08:40] VITALS: BP 92/54
[2017-11-05] MEDS: FOLIC ACID 1 MG TABLET PO SCH (09:21)
[2017-11-05] MEDS: OXYBUTYNIN CHLORIDE 5 MG ER TABLET PO SCH (09:21)
[2017-11-05] MEDS: CarBAMazepine 200 MG TABLET PO SCH ×2 (09:21→16:17)
[2017-11-05] MEDS: OMEPRAZOLE 20 MG CAPSULE PO SCH (09:21)
[2017-11-05] MEDS: DOCUSATE SODIUM 100 MG CAPSULE PO SCH (09:22)
[2017-11-05] MEDS ORDERED: LOPERAMIDE HCL 2 MG CAPSULE PO PRN (09:30)
[2017-11-05] MEDS ORDERED: HydrOXYzine PAMOATE 50 MG CAPSULE PO PRN (09:30)
[2017-11-05] MEDS: THIAMINE HCL 100 MG TABLET PO SCH (16:17)
[2017-11-05] MEDS: OLANZapine 5 MG RAPDIS TABLET PO PRN (16:17)
[2017-11-05] MEDS: LORazepam 2 MG TABLET PO PRN (16:17)
[2017-11-05 16:30] VITALS: BP 134/74
[2017-11-05] MEDS: OLANZapine 5 MG RAPDIS TABLET PO SCH (20:05)
[2017-11-06] MEDS: DOCUSATE SODIUM 100 MG CAPSULE PO SCH (09:00)
[2017-11-06] MEDS ORDERED: FOLIC ACID 1 MG TABLET PO SCH (09:00)
[2017-11-06] MEDS: CarBAMazepine 200 MG TABLET PO SCH ×2 (11:02→16:11)
[2017-11-06] MEDS: FOLIC ACID 1 MG TABLET PO SCH (11:02)
[2017-11-06] MEDS: OMEPRAZOLE 20 MG CAPSULE PO SCH (11:02)
[2017-11-06] MEDS: MULTIVITAMINS WITH MINERALS, THERAPEUTIC TABLET PO SCH (11:03)
[2017-11-06] MEDS: THIAMINE HCL 100 MG TABLET PO SCH ×2 (11:03→16:11)
[2017-11-06] MEDS: OXYBUTYNIN CHLORIDE 5 MG ER TABLET PO SCH (11:03)
[2017-11-06] MEDS: LORazepam 2 MG TABLET PO PRN (16:12)
[2017-11-06] MEDS: OLANZapine 5 MG RAPDIS TABLET PO SCH (20:27)
[2017-11-07] MEDS: THIAMINE HCL 100 MG TABLET PO SCH ×2 (09:55→16:32)
[2017-11-07] MEDS: FOLIC ACID 1 MG TABLET PO SCH (09:55)
[2017-11-07] MEDS: CarBAMazepine 200 MG TABLET PO SCH ×3 (09:55→16:55)
[2017-11-07] MEDS: MULTIVITAMINS WITH MINERALS, THERAPEUTIC TABLET PO SCH (09:55)
[2017-11-07] MEDS: OXYBUTYNIN CHLORIDE 5 MG ER TABLET PO SCH (09:55)
[2017-11-07] MEDS: DOCUSATE SODIUM 100 MG CAPSULE PO SCH (09:55)
[2017-11-07] MEDS: OMEPRAZOLE 20 MG CAPSULE PO SCH (09:55)
[2017-11-07] MEDS: OLANZapine 5 MG RAPDIS TABLET PO SCH (20:26)
[2017-11-08] MEDS: DOCUSATE SODIUM 100 MG CAPSULE PO SCH (09:00)
[2017-11-08] MEDS: THIAMINE HCL 100 MG TABLET PO SCH ×2 (10:02→16:33)
[2017-11-08] MEDS: CarBAMazepine 200 MG TABLET PO SCH ×3 (10:02→16:33)
[2017-11-08] MEDS: OMEPRAZOLE 20 MG CAPSULE PO SCH (10:02)
[2017-11-08] MEDS: OXYBUTYNIN CHLORIDE 5 MG ER TABLET PO SCH (10:02)
[2017-11-08] MEDS: FOLIC ACID 1 MG TABLET PO SCH (10:02)
[2017-11-08] MEDS: MULTIVITAMINS WITH MINERALS, THERAPEUTIC TABLET PO SCH (10:02)
[2017-11-08] MEDS: GuaiFENesin/D-METHORPHAN [SUGAR-FREE] 200-20MG/10 ML SYRUP UDCUP PO PRN ×2 (10:04→14:40)
[2017-11-08] MEDS: LORazepam 2 MG TABLET PO PRN (16:34)
[2017-11-08] MEDS: OLANZapine 5 MG RAPDIS TABLET PO SCH (20:48)
[2017-11-09] MEDS: OMEPRAZOLE 20 MG CAPSULE PO SCH (08:54)
[2017-11-09] MEDS: FOLIC ACID 1 MG TABLET PO SCH (08:54)
[2017-11-09] MEDS: DOCUSATE SODIUM 100 MG CAPSULE PO SCH (08:54)
[2017-11-09] MEDS: NALTREXONE HCL 50 MG TABLET PO SCH (08:54)
[2017-11-09] MEDS: OXYBUTYNIN CHLORIDE 5 MG ER TABLET PO SCH (08:54)
[2017-11-09] MEDS: CarBAMazepine 200 MG TABLET PO SCH ×3 (08:55→16:50)
[2017-11-09] MEDS: MULTIVITAMINS WITH MINERALS, THERAPEUTIC TABLET PO SCH (08:55)
[2017-11-09] MEDS: THIAMINE HCL 100 MG TABLET PO SCH ×2 (08:55→16:50)
[2017-11-09] MEDS: GuaiFENesin/D-METHORPHAN [SUGAR-FREE] 200-20MG/10 ML SYRUP UDCUP PO PRN ×3 (08:56→20:19)
[2017-11-09 10:09] VITALS: BP 133/93
[2017-11-09 16:00] VITALS: BP 124/81
[2017-11-09] MEDS: OLANZapine 5 MG RAPDIS TABLET PO SCH (20:17)
[2017-11-10] MEDS: MULTIVITAMINS WITH MINERALS, THERAPEUTIC TABLET PO SCH (08:29)
[2017-11-10] MEDS: OXYBUTYNIN CHLORIDE 5 MG ER TABLET PO SCH (08:29)
[2017-11-10] MEDS: NALTREXONE HCL 50 MG TABLET PO SCH (08:29)
[2017-11-10] MEDS: FOLIC ACID 1 MG TABLET PO SCH (08:29)
[2017-11-10] MEDS: THIAMINE HCL 100 MG TABLET PO SCH ×2 (08:29→17:09)
[2017-11-10] MEDS: OMEPRAZOLE 20 MG CAPSULE PO SCH (08:29)
[2017-11-10] MEDS: CarBAMazepine 200 MG TABLET PO SCH ×3 (08:29→17:08)
[2017-11-10] MEDS: DOCUSATE SODIUM 100 MG CAPSULE PO SCH (08:29)
[2017-11-10 08:30] VITALS: BP 132/88
[2017-11-10] MEDS: LORazepam 2 MG TABLET PO PRN (17:08)
[2017-11-10] MEDS: OLANZapine 5 MG RAPDIS TABLET PO SCH (21:26)
[2017-11-11] MEDS: FOLIC ACID 1 MG TABLET PO SCH (09:13)
[2017-11-11] MEDS: OXYBUTYNIN CHLORIDE 5 MG ER TABLET PO SCH (09:13)
[2017-11-11] MEDS: THIAMINE HCL 100 MG TABLET PO SCH ×2 (09:14→17:21)
[2017-11-11] MEDS: DOCUSATE SODIUM 100 MG CAPSULE PO SCH (09:14)
[2017-11-11] MEDS: OMEPRAZOLE 20 MG CAPSULE PO SCH (09:14)
[2017-11-11] MEDS: NALTREXONE HCL 50 MG TABLET PO SCH (09:14)
[2017-11-11] MEDS: CarBAMazepine 100 MG CHEWABLE TABLET PO SCH ×2 (09:14→17:21)
[2017-11-11] MEDS: MULTIVITAMINS WITH MINERALS, THERAPEUTIC TABLET PO SCH (09:14)
[2017-11-11] MEDS: GuaiFENesin/D-METHORPHAN [SUGAR-FREE] 200-20MG/10 ML SYRUP UDCUP PO PRN ×2 (17:22→22:25)
[2017-11-11] MEDS: OLANZapine 5 MG RAPDIS TABLET PO SCH (20:54)
[2017-11-11] MEDS: LORazepam 2 MG TABLET PO PRN (22:25)
[2017-11-12] MEDS ORDERED: CarBAMazepine 100 MG CHEWABLE TABLET PO SCH (09:00)
[2017-11-12] MEDS: OXYBUTYNIN CHLORIDE 5 MG ER TABLET PO SCH (10:45)
[2017-11-12] MEDS: MULTIVITAMINS WITH MINERALS, THERAPEUTIC TABLET PO SCH (10:45)
[2017-11-12] MEDS: OMEPRAZOLE 20 MG CAPSULE PO SCH (10:45)
[2017-11-12] MEDS: THIAMINE HCL 100 MG TABLET PO SCH ×2 (10:45→16:46)
[2017-11-12] MEDS: NALTREXONE HCL 50 MG TABLET PO SCH (10:45)
[2017-11-12] MEDS: FOLIC ACID 1 MG TABLET PO SCH (10:45)
[2017-11-12] MEDS: DOCUSATE SODIUM 100 MG CAPSULE PO SCH (10:45)
[2017-11-12] MEDS: GuaiFENesin/D-METHORPHAN [SUGAR-FREE] 200-20MG/10 ML SYRUP UDCUP PO PRN ×2 (14:00→18:03)
[2017-11-12 20:08] VITALS: BP 115/71
[2017-11-12] MEDS: OLANZapine 5 MG RAPDIS TABLET PO SCH (21:39)
[2017-11-13] MEDS: MULTIVITAMINS WITH MINERALS, THERAPEUTIC TABLET PO SCH ×2 (09:00→13:32)
[2017-11-13] MEDS: OMEPRAZOLE 20 MG CAPSULE PO SCH ×2 (09:00→13:32)
[2017-11-13] MEDS: THIAMINE HCL 100 MG TABLET PO SCH ×3 (09:00→16:57)
[2017-11-13] MEDS: DOCUSATE SODIUM 100 MG CAPSULE PO SCH ×2 (09:00→13:28)
[2017-11-13] MEDS: NALTREXONE HCL 50 MG TABLET PO SCH ×2 (09:00→13:32)
[2017-11-13] MEDS: FOLIC ACID 1 MG TABLET PO SCH ×2 (09:00→13:31)
[2017-11-13] MEDS: OXYBUTYNIN CHLORIDE 5 MG ER TABLET PO SCH ×2 (09:00→13:28)
[2017-11-13] MEDS ORDERED: OLAN5TAB30 PO (12:26)
[2017-11-13] MEDS ORDERED: NALT50TA PO (12:26)
[2017-11-13] MEDS: GuaiFENesin/D-METHORPHAN [SUGAR-FREE] 200-20MG/10 ML SYRUP UDCUP PO PRN ×2 (13:29→18:26)
[2017-11-13] MEDS: OLANZapine 5 MG RAPDIS TABLET PO SCH (21:07)
[2017-11-14 05:00] VITALS: BP 125/89
[2017-11-14] MEDS: THIAMINE HCL 100 MG TABLET PO SCH (08:00)
[2017-11-14] MEDS: OMEPRAZOLE 20 MG CAPSULE PO SCH (08:00)
[2017-11-14] MEDS: FOLIC ACID 1 MG TABLET PO SCH ×3 (08:00→08:08)
[2017-11-14] MEDS: OXYBUTYNIN CHLORIDE 5 MG ER TABLET PO SCH (08:00)
[2017-11-14] MEDS: MULTIVITAMINS WITH MINERALS, THERAPEUTIC TABLET PO SCH (08:00)
[2017-11-14] MEDS: DOCUSATE SODIUM 100 MG CAPSULE PO SCH (08:00)
[2017-11-14] MEDS: NALTREXONE HCL 50 MG TABLET PO SCH (08:00)
[2017-11-14] MEDS ORDERED: OLAN5TAB40 PO (08:26)
== END 2017-11-14 11:23 | disposition home or self-care (01) | DRG 885 ==
LOC: EMS 18:21 → 3EI 23:00
PROVIDERS: ADMIT Psychiatry & Neurology Psychiatry; ATTEND Psychiatry & Neurology Psychiatry
DX: F25.9 Schizoaffective disorder, unspecified (principal); R45.851 Suicidal ideations; J44.9 Chronic obstructive pulmonary disease, unspecified; K21.9 Gastro-esophageal reflux disease without esophagitis; F10.20 Alcohol dependence, uncomplicated; Y90.9 Presence of alcohol in blood, level not specified; I10 Essential (primary) hypertension; F31.9 Bipolar disorder, unspecified; F17.210 Nicotine dependence, cigarettes, uncomplicated; G47.00 Insomnia, unspecified; F41.9 Anxiety disorder, unspecified; Z71.6 Tobacco abuse counseling; Z56.0 Unemployment, unspecified; Z59.0 Homelessness; Z91.14 Patient's other noncompliance with medication regimen; Z91.19 Patient's noncompliance with other medical treatment and regimen; Z79.899 Other long term (current) drug therapy
CPT/HCPCS: 87081; 99285; 99406; G0480

== ENCOUNTER 2018-02-15 00:06 | Inpatient (IN) | payer MEDICARE, MEDICAID ==
[~2018-02-15] VITALS: Ht 177.8 cm; Wt 84.8 kg
[~2018-02-15 00:06] MED LIST changes: -DIPH25 PO; -DSS100 PO; -FOLI1 PO; -NALT50TA PO; +OLAN10TA3 PO; -OLAN7.5T2 PO; -OLAN7.5T9 PO; -OMEP20 PO; -OXYB5XL PO
[2018-02-15] MEDS ORDERED: HALOPERIDOL 5 MG TABLET PO PRN (02:45)
[2018-02-15] MEDS ORDERED: LORazepam 2 MG TABLET PO PRN (02:45)
[2018-02-15] MEDS ORDERED: ZOLPIDEM TARTRATE 10 MG TABLET PO PRN (02:45)
[2018-02-15] MEDS ORDERED: OLAN10TA3 PO (02:52)
[2018-02-15] MEDS ORDERED: DIPH25 PO (03:16)
[2018-02-15 03:27] VITALS: BP 124/80
[2018-02-15] MEDS ORDERED: PNEUMOCOCCAL VACCINE POLYVALENT 0.5 ML VIAL [PPSV23] IM ONE (04:00)
[2018-02-15] MEDS ORDERED: ONDANSETRON HCL 4 MG TABLET PO PRN (07:15)
[2018-02-15] MEDS ORDERED: ACETAMINOPHEN 325 MG TABLET PO PRN (07:15)
[2018-02-15] MEDS ORDERED: IBUPROFEN 400 MG TABLET PO PRN (07:15)
[2018-02-15] MEDS ORDERED: PETROLATUM,WHITE 71 GM JELLY TP PRN (07:15)
[2018-02-15] MEDS ORDERED: MAGNESIUM HYDROXIDE SUSPENSION 30 ML UDCUP PO PRN (07:15)
[2018-02-15] MEDS ORDERED: GuaiFENesin/D-METHORPHAN [SUGAR-FREE] 200-20MG/10 ML SYRUP UDCUP PO PRN (07:15)
[2018-02-15] MEDS ORDERED: DOCUSATE SODIUM 100 MG CAPSULE PO PRN (07:15)
[2018-02-15] MEDS ORDERED: LOPERAMIDE HCL 2 MG CAPSULE PO PRN (07:15)
[2018-02-15] MEDS ORDERED: ALBUTEROL SULFATE HFA 90 MCG/PUFF 8 GM INHALER IH PRN (07:15)
[2018-02-15] MEDS ORDERED: CloNIDine HCL 0.1 MG TABLET PO PRN (07:15)
[2018-02-15] MEDS ORDERED: NICOTINE 14 MG/24 HOUR PATCH TD PRN (07:15)
[2018-02-15] MEDS ORDERED: MAG HYDROX/AL HYDROX/SIMETH ES 30 ML SUSPENSION UDCUP PO PRN (07:15)
[2018-02-15 09:33] VITALS: BP 110/70
[2018-02-15] MEDS: CarBAMazepine 200 MG TABLET PO SCH (16:28)
[2018-02-15 16:33] VITALS: BP 106/68
[2018-02-15] MEDS: OLANZapine 10 MG TABLET PO SCH (20:21)
[2018-02-16] MEDS: CarBAMazepine 200 MG TABLET PO SCH ×2 (08:31→16:17)
[2018-02-16] MEDS: OLANZapine 10 MG TABLET PO SCH (20:03)
[2018-02-17] MEDS: CarBAMazepine 200 MG TABLET PO SCH ×2 (09:14→17:01)
[2018-02-17] MEDS: OLANZapine 10 MG TABLET PO SCH (20:22)
[2018-02-18] MEDS: CarBAMazepine 200 MG TABLET PO SCH ×2 (09:02→16:08)
[2018-02-18] MEDS: THIAMINE HCL 100 MG TABLET PO SCH (11:19)
[2018-02-18] MEDS: FOLIC ACID 1 MG TABLET PO SCH (11:19)
[2018-02-18] MEDS: OLANZapine 10 MG TABLET PO SCH (21:26)
[2018-02-19] MEDS: THIAMINE HCL 100 MG TABLET PO SCH (09:24)
[2018-02-19] MEDS: FOLIC ACID 1 MG TABLET PO SCH (09:24)
[2018-02-19] MEDS: CarBAMazepine 200 MG TABLET PO SCH (09:24)
[2018-02-19] MEDS ORDERED: THIA100T67 PO (09:36)
[2018-02-19] MEDS ORDERED: FOLI1 PO (09:36)
== END 2018-02-19 10:30 | disposition home or self-care (01) | DRG 750 ==
LOC: B2S 02:48
PROVIDERS: ADMIT Psychiatry & Neurology Psychiatry; ATTEND Psychiatry & Neurology Psychiatry
DX: F25.0 Schizoaffective disorder, bipolar type (principal); Z59.0 Homelessness; E78.5 Hyperlipidemia, unspecified; F17.200 Nicotine dependence, unspecified, uncomplicated; Z71.6 Tobacco abuse counseling; F41.9 Anxiety disorder, unspecified; I10 Essential (primary) hypertension; J44.9 Chronic obstructive pulmonary disease, unspecified; K21.9 Gastro-esophageal reflux disease without esophagitis; R32 Unspecified urinary incontinence; Z91.5 Personal history of self-harm; G47.00 Insomnia, unspecified; Z28.21 Immunization not carried out because of patient refusal

== ENCOUNTER 2018-03-16 13:34 | Inpatient (IN) | payer MEDICARE, MEDICAID ==
[~2018-03-16] VITALS: Ht 172.7 cm; Wt 81.3 kg
[~2018-03-16 13:34] MED LIST changes: +FOLI1 PO; -NALT50TA6 PO; +THIA100T67 PO
[2018-03-16 14:53] LABS: ANION GAP 14 mmol/L (8-16); CALCIUM, TOTAL 9.4 mg/dL (8.8-10.5); CARBON DIOXIDE 23 mmol/L (22-29); CHLORIDE 100 mmol/L (98-107); CREATININE 0.74 mg/dL (0.60-1.30); GLOMERULAR FILTR. RATE CALC > 60 mL/min (>60); GLUCOSE,RANDOM 95 mg/dL (70-110); POTASSIUM 3.4 mmol/L (3.5-5.1); SODIUM SERUM 137 mmol/L (136-145); UREA NITROGEN, BLOOD 12 mg/dL (7-18)
[2018-03-16 15:00] LABS: ALANINE AMINOTRANSFERASE 33 U/L (12-78); ALBUMIN 3.8 g/dL (3.4-5.0); ALKALINE PHOSPHATASE 96 U/L (46-116); ASPARTATE AMINOTRANSFERASE 36 U/L (15-37); BILIRUBIN,TOTAL 0.4 mg/dL (0.1-1.0); TOTAL PROTEIN, SERUM 7.7 g/dL (6.4-8.2)
[2018-03-16] MEDS ORDERED: POTASSIUM CHLORIDE 10% 40 MEQ/30 ML LIQUID UDCUP PO ONE (15:45)
[2018-03-16 15:52] LABS: BASOPHILS % (AUTO) 0.7 % (0.0-2.0); EOSINOPHILS % (AUTO) 0.9 % (1.0-6.0); HEMATOCRIT 47.5 % (41-53); HEMOGLOBIN 16.3 g/dL (13.5-17.5); LYMPHOCYTES # (AUTO) 3.2 K/uL (1.0-4.8); LYMPHOCYTES % (AUTO) 28.1 % (22.0-44.0); MEAN CORPUSCULAR HEMOGLOBIN 31.6 pg (26.0-34.0); MEAN CORPUSCULAR HGB CONC 34.3 G/dL (31.0-37.0); MEAN CORPUSCULAR VOLUME 92 fL (80-100); MONOCYTES # (AUTO) 0.7 K/uL (0.1-1.0); MONOCYTES % (AUTO) 5.9 % (2.0-9.0); NEUTROPHILS # (AUTO) 7.3 K/uL (1.8-7.7); NEUTROPHILS % (AUTO) 64.4 % (40.0-70.0); RED BLOOD CELL COUNT(AUTO) 5.16 MIL/uL (4.50-5.90)
[2018-03-16 15:56] LABS: AMPHET/METH SCREEN,URINE NEGATIVE (NEGATIVE); BARBITURATE SCREEN, URINE NEGATIVE (NEGATIVE); BENZODIAZEPINES SCREEN,URINE NEGATIVE (NEGATIVE); CANNABINOID SCREEN,URINE NEGATIVE (NEGATIVE); COCAINE SCREEN,URINE NEGATIVE (NEGATIVE); METHADONE SCREEN, URINE NEGATIVE (NEGATIVE); OPIATE SCREEN,URINE NEGATIVE (NEGATIVE); PHENCYCLIDINE SCREEN,URINE NEGATIVE (NEGATIVE)
[2018-03-16] MEDS ORDERED: ZOLPIDEM TARTRATE 10 MG TABLET PO PRN (16:00)
[2018-03-16] MEDS ORDERED: LORazepam 2 MG TABLET PO PRN (16:00)
[2018-03-16] MEDS ORDERED: OLANZapine 5 MG RAPDIS TABLET PO PRN (16:00)
[2018-03-16 16:01] LABS: PLATELET COUNT (AUTO) 189 K/uL (150-450); PLATELET MORPHOLOGY COMMENT LARGE PLTS PRESENT
[2018-03-16 23:31] VITALS: BP 145/101
[2018-03-17] MEDS ORDERED: MAG HYDROX/AL HYDROX/SIMETH ES 30 ML SUSPENSION UDCUP PO PRN (09:30)
[2018-03-17] MEDS ORDERED: ONDANSETRON HCL 4 MG TABLET PO PRN (09:30)
[2018-03-17] MEDS ORDERED: LOPERAMIDE HCL 2 MG CAPSULE PO PRN ×2 (09:30→18:30)
[2018-03-17] MEDS ORDERED: PETROLATUM,WHITE 71 GM JELLY TP PRN (09:30)
[2018-03-17] MEDS ORDERED: ALBUTEROL SULFATE HFA 90 MCG/PUFF 8 GM INHALER IH PRN (09:30)
[2018-03-17] MEDS ORDERED: BENZOCAINE/MENTHOL LOZENGE MM PRN (09:30)
[2018-03-17] MEDS ORDERED: BACITRACIN 28.4 GM OINTMENT TP PRN (09:30)
[2018-03-17] MEDS ORDERED: CloNIDine HCL 0.1 MG TABLET PO PRN (09:30)
[2018-03-17] MEDS ORDERED: MAGNESIUM HYDROXIDE SUSPENSION 30 ML UDCUP PO PRN (09:30)
[2018-03-17] MEDS ORDERED: IBUPROFEN 600 MG TABLET PO PRN (09:30)
[2018-03-17] MEDS: CarBAMazepine 200 MG TABLET PO SCH ×2 (09:50→16:17)
[2018-03-17] MEDS: FOLIC ACID 1 MG TABLET PO SCH (09:50)
[2018-03-17] MEDS: ACETAMINOPHEN 325 MG TABLET PO PRN ×2 (09:50→16:19)
[2018-03-17] MEDS: THIAMINE HCL 100 MG TABLET PO SCH (09:50)
[2018-03-17 16:19] VITALS: BP 138/95
[2018-03-17 18:00] VITALS: BP 130/75
[2018-03-17] MEDS ORDERED: DIAZEPAM 10 MG TABLET PO PRN (18:30)
[2018-03-17] MEDS ORDERED: CYANOCOBALAMIN 1,000 MCG/ML VIAL IM ONE (18:30)
[2018-03-17 19:00] VITALS: BP 138/73
[2018-03-17 20:00] VITALS: BP 111/60
[2018-03-17] MEDS: OLANZapine 5 MG RAPDIS TABLET PO SCH (20:24)
[2018-03-18] MEDS ORDERED: DIAZEPAM 10 MG TABLET PO PRN (07:00)
[2018-03-18 08:05] VITALS: BP 136/78
[2018-03-18 10:00] VITALS: BP 128/80
[2018-03-18] MEDS: DOCUSATE SODIUM 100 MG CAPSULE PO SCH (10:05)
[2018-03-18] MEDS: FOLIC ACID 1 MG TABLET PO SCH (10:05)
[2018-03-18] MEDS: OMEPRAZOLE 20 MG CAPSULE PO SCH (10:05)
[2018-03-18] MEDS: DIAZEPAM 10 MG TABLET PO SCH ×4 (10:05→20:50)
[2018-03-18] MEDS: THIAMINE HCL 100 MG TABLET PO SCH (10:05)
[2018-03-18] MEDS: CarBAMazepine 200 MG TABLET PO SCH ×2 (10:05→16:58)
[2018-03-18] MEDS: NALTREXONE HCL 50 MG TABLET PO SCH (10:06)
[2018-03-18 18:00] VITALS: BP 125/82
[2018-03-18 19:17] VITALS: BP 108/75
[2018-03-18] MEDS: OLANZapine 5 MG RAPDIS TABLET PO SCH (20:50)
[2018-03-19 02:00] VITALS: BP 101/62
[2018-03-19] MEDS: FOLIC ACID 1 MG TABLET PO SCH (10:38)
[2018-03-19] MEDS: OMEPRAZOLE 20 MG CAPSULE PO SCH (10:38)
[2018-03-19] MEDS: DIAZEPAM 10 MG TABLET PO SCH ×4 (10:38→21:31)
[2018-03-19] MEDS: NALTREXONE HCL 50 MG TABLET PO SCH (10:38)
[2018-03-19] MEDS: DOCUSATE SODIUM 100 MG CAPSULE PO SCH (10:38)
[2018-03-19] MEDS: THIAMINE HCL 100 MG TABLET PO SCH (10:38)
[2018-03-19] MEDS: CarBAMazepine 200 MG TABLET PO SCH ×2 (10:39→17:47)
[2018-03-19 16:00] VITALS: BP 128/94
[2018-03-19] MEDS: OLANZapine 5 MG RAPDIS TABLET PO SCH (21:31)
[2018-03-20] MEDS ORDERED: DIAZEPAM 5 MG TABLET PO PRN (07:00)
[2018-03-20 08:05] VITALS: BP 110/75
[2018-03-20] MEDS: OMEPRAZOLE 20 MG CAPSULE PO SCH (11:14)
[2018-03-20] MEDS: DOCUSATE SODIUM 100 MG CAPSULE PO SCH (11:14)
[2018-03-20] MEDS: NALTREXONE HCL 50 MG TABLET PO SCH (11:14)
[2018-03-20] MEDS: CarBAMazepine 200 MG TABLET PO SCH ×2 (11:14→17:37)
[2018-03-20] MEDS: DIAZEPAM 5 MG TABLET PO SCH ×4 (11:14→21:01)
[2018-03-20] MEDS: FOLIC ACID 1 MG TABLET PO SCH (11:14)
[2018-03-20] MEDS: THIAMINE HCL 100 MG TABLET PO SCH (11:15)
[2018-03-20] MEDS ORDERED: OLANZapine 10 MG RAPDIS TABLET PO SCH (21:00)
[2018-03-21] MEDS ORDERED: DIAZEPAM 5 MG TABLET PO PRN (07:00)
[2018-03-21] MEDS: DOCUSATE SODIUM 100 MG CAPSULE PO SCH (10:08)
[2018-03-21] MEDS: THIAMINE HCL 100 MG TABLET PO SCH (10:09)
[2018-03-21] MEDS: CarBAMazepine 200 MG TABLET PO SCH (10:09)
[2018-03-21] MEDS: FOLIC ACID 1 MG TABLET PO SCH (10:09)
[2018-03-21] MEDS: OMEPRAZOLE 20 MG CAPSULE PO SCH (10:09)
[2018-03-21] MEDS: NALTREXONE HCL 50 MG TABLET PO SCH (10:09)
[2018-03-21] MEDS ORDERED: CARB200T6 PO (12:47)
[2018-03-21] MEDS ORDERED: NALT50TA PO (12:47)
[2018-03-21] MEDS ORDERED: OLAN10TA22 PO (12:47)
[2018-03-21] MEDS ORDERED: DSS100 PO (15:02)
[2018-03-21] MEDS ORDERED: OMEP20 PO (15:02)
== END 2018-03-21 16:15 | disposition home or self-care (01) | DRG 750 ==
LOC: EMS 13:35 → 3EI 21:04
PROVIDERS: ADMIT Psychiatry & Neurology Psychiatry; ATTEND Psychiatry & Neurology Psychiatry
DX: F25.0 Schizoaffective disorder, bipolar type (principal); R56.9 Unspecified convulsions; R45.851 Suicidal ideations; E87.6 Hypokalemia; F10.239 Alcohol dependence with withdrawal, unspecified; F17.210 Nicotine dependence, cigarettes, uncomplicated; F41.9 Anxiety disorder, unspecified; G47.00 Insomnia, unspecified; I10 Essential (primary) hypertension; J44.9 Chronic obstructive pulmonary disease, unspecified; K21.9 Gastro-esophageal reflux disease without esophagitis; Z91.19 Patient's noncompliance with other medical treatment and regimen
CPT/HCPCS: 87081; G0480; J3420

== ENCOUNTER 2018-05-08 14:22 | Inpatient (IN) | payer MEDICARE, MEDICAID ==
[~2018-05-08] VITALS: Ht 180.3 cm; Wt 80.1 kg
[~2018-05-08 14:22] MED LIST changes: +DSS100 PO; +NALT50TA PO; +OLAN10TA22 PO; -OLAN10TA3 PO; +OMEP20 PO
[2018-05-08] MEDS ORDERED: LORazepam 2 MG TABLET PO ONE (17:00)
[2018-05-08] MEDS ORDERED: HALOPERIDOL 5 MG TABLET PO ONE (17:00)
[2018-05-08 17:24] LABS: BASOPHILS % (AUTO) 1.4 % (0.0-2.0); EOSINOPHILS % (AUTO) 3.6 % (1.0-6.0); HEMOGLOBIN 16.7 g/dL (13.5-17.5); LYMPHOCYTES # (AUTO) 3.5 K/uL (1.0-4.8); LYMPHOCYTES % (AUTO) 44.7 % (22.0-44.0); MEAN CORPUSCULAR HEMOGLOBIN 31.6 pg (26.0-34.0); MEAN CORPUSCULAR HGB CONC 33.4 G/dL (31.0-37.0); MEAN CORPUSCULAR VOLUME 94 fL (80-100); MONOCYTES # (AUTO) 0.4 K/uL (0.1-1.0); MONOCYTES % (AUTO) 5.5 % (2.0-9.0); NEUTROPHILS # (AUTO) 3.5 K/uL (1.8-7.7); NEUTROPHILS % (AUTO) 44.8 % (40.0-70.0); PLATELET COUNT (AUTO) 202 K/uL (150-450); RED CELL DISTRIBUTION WIDTH 14.2 % (11.5-14.5)
[2018-05-08 17:25] LABS: AMPHET/METH SCREEN,URINE NEGATIVE (NEGATIVE); BARBITURATE SCREEN, URINE NEGATIVE (NEGATIVE); BENZODIAZEPINES SCREEN,URINE NEGATIVE (NEGATIVE); CANNABINOID SCREEN,URINE NEGATIVE (NEGATIVE); COCAINE SCREEN,URINE NEGATIVE (NEGATIVE); METHADONE SCREEN, URINE NEGATIVE (NEGATIVE); OPIATE SCREEN,URINE NEGATIVE (NEGATIVE)
[2018-05-08 17:26] LABS: PHENCYCLIDINE SCREEN,URINE NEGATIVE (NEGATIVE)
[2018-05-08 17:53] LABS: ANION GAP 14 mmol/L (8-16); CARBON DIOXIDE 23 mmol/L (22-29); CHLORIDE 103 mmol/L (98-107); CREATININE 0.85 mg/dL (0.60-1.30); GLOMERULAR FILTR. RATE CALC > 60 mL/min (>60); GLUCOSE,RANDOM 93 mg/dL (70-110); SODIUM SERUM 140 mmol/L (136-145); UREA NITROGEN, BLOOD 10 mg/dL (7-18)
[2018-05-08 17:58] LABS: ALANINE AMINOTRANSFERASE 33 U/L (12-78); ALBUMIN 3.7 g/dL (3.4-5.0); ALKALINE PHOSPHATASE 87 U/L (46-116); ASPARTATE AMINOTRANSFERASE 42 U/L (15-37); BILIRUBIN,TOTAL 0.3 mg/dL (0.1-1.0); TOTAL PROTEIN, SERUM 7.6 g/dL (6.4-8.2)
[2018-05-08] MEDS ORDERED: ZOLPIDEM TARTRATE 10 MG TABLET PO PRN (18:45)
[2018-05-08] MEDS ORDERED: IBUPROFEN 400 MG TABLET PO PRN (18:45)
[2018-05-08] MEDS ORDERED: HALOPERIDOL 5 MG TABLET PO PRN (18:45)
[2018-05-08] MEDS ORDERED: ACETAMINOPHEN 325 MG TABLET PO PRN (18:45)
[2018-05-08] MEDS ORDERED: LORazepam 2 MG TABLET PO PRN (18:45)
[2018-05-09] VITALS (11 sets, daily range): BP systolic 136–145; BP diastolic 76–98
[2018-05-09] MEDS ORDERED: PNEUMOCOCCAL VACCINE POLYVALENT 0.5 ML VIAL [PPSV23] IM ONE (02:45)
[2018-05-09] MEDS ORDERED: DOCUSATE SODIUM 100 MG CAPSULE PO PRN (07:00)
[2018-05-09] MEDS ORDERED: ONDANSETRON HCL 4 MG TABLET PO PRN (07:00)
[2018-05-09] MEDS ORDERED: IBUPROFEN 400 MG TABLET PO PRN (07:00)
[2018-05-09] MEDS ORDERED: MAG HYDROX/AL HYDROX/SIMETH ES 30 ML SUSPENSION UDCUP PO PRN (07:00)
[2018-05-09] MEDS ORDERED: PERMETHRIN 5% 60 GM CREAM TP ONE (07:00)
[2018-05-09] MEDS ORDERED: PETROLATUM,WHITE 71 GM JELLY TP PRN (07:00)
[2018-05-09] MEDS ORDERED: CloNIDine HCL 0.1 MG TABLET PO PRN (07:00)
[2018-05-09] MEDS ORDERED: NICOTINE 14 MG/24 HOUR PATCH TD PRN (07:00)
[2018-05-09] MEDS ORDERED: ACETAMINOPHEN 325 MG TABLET PO PRN (07:00)
[2018-05-09] MEDS ORDERED: GuaiFENesin/D-METHORPHAN [SUGAR-FREE] 200-20MG/10 ML SYRUP UDCUP PO PRN (07:00)
[2018-05-09] MEDS ORDERED: ALBUTEROL SULFATE HFA 90 MCG/PUFF 8 GM INHALER IH PRN (07:00)
[2018-05-09] MEDS ORDERED: MAGNESIUM HYDROXIDE SUSPENSION 30 ML UDCUP PO PRN (07:00)
[2018-05-09] MEDS ORDERED: LOPERAMIDE HCL 2 MG CAPSULE PO PRN (07:00)
[2018-05-09] MEDS ORDERED: OLANZapine 10 MG RAPDIS TABLET PO SCH (21:00)
[2018-05-10 05:46] VITALS: BP 136/76
[2018-05-10] MEDS ORDERED: THIAMINE HCL 100 MG TABLET PO SCH (09:00)
[2018-05-10] MEDS ORDERED: FOLIC ACID 1 MG TABLET PO SCH (09:00)
== END 2018-05-10 15:03 | disposition home or self-care (01) | DRG 885 ==
LOC: EMS 14:27 → B3A 23:21
PROVIDERS: ADMIT Psychiatry & Neurology Psychiatry; ATTEND Psychiatry & Neurology Psychiatry
DX: F25.0 Schizoaffective disorder, bipolar type (principal); F41.9 Anxiety disorder, unspecified; I10 Essential (primary) hypertension; J44.9 Chronic obstructive pulmonary disease, unspecified; K21.9 Gastro-esophageal reflux disease without esophagitis; F17.210 Nicotine dependence, cigarettes, uncomplicated; R74.0 Nonspecific elevation of levels of transaminase and lactic acid dehydrogenase [LDH]; R21 Rash and other nonspecific skin eruption; F10.10 Alcohol abuse, uncomplicated; Z71.41 Alcohol abuse counseling and surveillance of alcoholic; Z79.899 Other long term (current) drug therapy
CPT/HCPCS: 90686; 90732; G0480

== ENCOUNTER 2018-05-13 19:26 | Inpatient (IN) | payer MEDICARE, MEDICAID ==
[~2018-05-13] VITALS: Ht 177.8 cm; Wt 81.2 kg
[~2018-05-13 19:26] MED LIST changes: -CARB200T6 PO; -DSS100 PO; -FOLI1 PO; -NALT50TA PO; -OMEP20 PO; -THIA100T67 PO
[2018-05-13 22:09] LABS: BASOPHILS % (AUTO) 0.9 % (0.0-2.0); EOSINOPHILS % (AUTO) 2.5 % (1.0-6.0); HEMATOCRIT 49.7 % (41-53); HEMOGLOBIN 16.6 g/dL (13.5-17.5); LYMPHOCYTES % (AUTO) 32.2 % (22.0-44.0); MEAN CORPUSCULAR HEMOGLOBIN 31.2 pg (26.0-34.0); MEAN CORPUSCULAR HGB CONC 33.4 G/dL (31.0-37.0); MEAN CORPUSCULAR VOLUME 94 fL (80-100); MONOCYTES # (AUTO) 0.6 K/uL (0.1-1.0); MONOCYTES % (AUTO) 6.1 % (2.0-9.0); NEUTROPHILS # (AUTO) 5.4 K/uL (1.8-7.7); NEUTROPHILS % (AUTO) 58.3 % (40.0-70.0); PLATELET COUNT (AUTO) 201 K/uL (150-450); RED BLOOD CELL COUNT(AUTO) 5.31 MIL/uL (4.50-5.90); RED CELL DISTRIBUTION WIDTH 14.1 % (11.5-14.5)
[2018-05-13 22:24] LABS: CREATININE 1.36 mg/dL (0.60-1.30); POTASSIUM 3.4 mmol/L (3.5-5.1)
[2018-05-13 22:26] LABS: ALBUMIN 3.4 g/dL (3.4-5.0); BILIRUBIN,TOTAL 0.4 mg/dL (0.1-1.0); TOTAL PROTEIN, SERUM 7.4 g/dL (6.4-8.2)
[2018-05-14] MEDS ORDERED: ZOLPIDEM TARTRATE 10 MG TABLET PO PRN (01:00)
[2018-05-14] MEDS ORDERED: LORazepam 2 MG TABLET PO PRN (01:00)
[2018-05-14] MEDS ORDERED: HALOPERIDOL 5 MG TABLET PO PRN (01:00)
[2018-05-14] MEDS ORDERED: PETROLATUM,WHITE 71 GM JELLY TP PRN (06:15)
[2018-05-14] MEDS ORDERED: NICOTINE 14 MG/24 HOUR PATCH TD PRN (06:15)
[2018-05-14] MEDS ORDERED: DOCUSATE SODIUM 100 MG CAPSULE PO PRN (06:15)
[2018-05-14] MEDS ORDERED: ALBUTEROL SULFATE HFA 90 MCG/PUFF 8 GM INHALER IH PRN (06:15)
[2018-05-14] MEDS ORDERED: LOPERAMIDE HCL 2 MG CAPSULE PO PRN (06:15)
[2018-05-14] MEDS ORDERED: IBUPROFEN 400 MG TABLET PO PRN (06:15)
[2018-05-14] MEDS ORDERED: MAG HYDROX/AL HYDROX/SIMETH ES 30 ML SUSPENSION UDCUP PO PRN (06:15)
[2018-05-14] MEDS ORDERED: CloNIDine HCL 0.1 MG TABLET PO PRN (06:15)
[2018-05-14] MEDS ORDERED: GuaiFENesin/D-METHORPHAN [SUGAR-FREE] 200-20MG/10 ML SYRUP UDCUP PO PRN (06:15)
[2018-05-14] MEDS ORDERED: ONDANSETRON HCL 4 MG TABLET PO PRN (06:15)
[2018-05-14] MEDS ORDERED: MAGNESIUM HYDROXIDE SUSPENSION 30 ML UDCUP PO PRN (06:15)
[2018-05-14] MEDS ORDERED: ACETAMINOPHEN 325 MG TABLET PO PRN (06:15)
[2018-05-14] MEDS ORDERED: POTASSIUM CHLORIDE 20 MEQ ER TABLET PO ONE (10:00)
[2018-05-15] MEDS: THIAMINE HCL 100 MG TABLET PO SCH (09:57)
[2018-05-15] MEDS: FOLIC ACID 1 MG TABLET PO SCH (09:58)
[2018-05-15 18:17] VITALS: BP 131/76
[2018-05-16 10:04] VITALS: BP 150/67
[2018-05-16] MEDS: FOLIC ACID 1 MG TABLET PO SCH (10:19)
[2018-05-16] MEDS: THIAMINE HCL 100 MG TABLET PO SCH ×2 (10:20→16:17)
[2018-05-16] MEDS ORDERED: DIAZEPAM 10 MG TABLET PO PRN (11:00)
[2018-05-16] MEDS ORDERED: CYANOCOBALAMIN 1,000 MCG/ML VIAL IM ONE (11:00)
[2018-05-16] MEDS ORDERED: OLANZapine 5 MG RAPDIS TABLET PO PRN (11:00)
[2018-05-16] MEDS ORDERED: HydrOXYzine PAMOATE 50 MG CAPSULE PO PRN (11:00)
[2018-05-16] MEDS ORDERED: LOPERAMIDE HCL 2 MG CAPSULE PO PRN (11:00)
[2018-05-16] MEDS ORDERED: GuaiFENesin/D-METHORPHAN [SUGAR-FREE] 200-20MG/10 ML SYRUP UDCUP PO PRN (11:00)
[2018-05-16 18:07] VITALS: BP 147/84
[2018-05-16] MEDS: OLANZapine 10 MG RAPDIS TABLET PO SCH (20:15)
[2018-05-17] MEDS ORDERED: DIAZEPAM 10 MG TABLET PO PRN (07:00)
[2018-05-17] MEDS: MULTIVITAMINS WITH MINERALS, THERAPEUTIC TABLET PO SCH (09:54)
[2018-05-17] MEDS: THIAMINE HCL 100 MG TABLET PO SCH ×2 (09:55→16:32)
[2018-05-17] MEDS: DIAZEPAM 10 MG TABLET PO SCH ×4 (09:56→22:05)
[2018-05-17 11:02] VITALS: BP 110/70
[2018-05-17] MEDS: FOLIC ACID 1 MG TABLET PO SCH (12:52)
[2018-05-17 17:06] VITALS: BP 124/87
[2018-05-17] MEDS: OLANZapine 10 MG RAPDIS TABLET PO SCH (22:05)
[2018-05-18] MEDS: THIAMINE HCL 100 MG TABLET PO SCH ×2 (10:49→16:41)
[2018-05-18] MEDS: MULTIVITAMINS WITH MINERALS, THERAPEUTIC TABLET PO SCH (10:49)
[2018-05-18] MEDS: FOLIC ACID 1 MG TABLET PO SCH (10:49)
[2018-05-18] MEDS: DIAZEPAM 10 MG TABLET PO SCH ×4 (10:49→21:00)
[2018-05-18 11:30] VITALS: BP 119/83
[2018-05-18 12:05] VITALS: BP 131/81
[2018-05-18 19:18] VITALS: BP 118/78
[2018-05-18] MEDS: OLANZapine 10 MG RAPDIS TABLET PO SCH (21:03)
[2018-05-19] MEDS ORDERED: DIAZEPAM 5 MG TABLET PO PRN (07:00)
[2018-05-19] MEDS: MULTIVITAMINS WITH MINERALS, THERAPEUTIC TABLET PO SCH (09:58)
[2018-05-19] MEDS: FOLIC ACID 1 MG TABLET PO SCH (09:58)
[2018-05-19] MEDS: THIAMINE HCL 100 MG TABLET PO SCH ×2 (09:58→16:21)
[2018-05-19] MEDS: DIAZEPAM 5 MG TABLET PO SCH ×4 (09:59→20:13)
[2018-05-19 17:31] VITALS: BP 114/76
[2018-05-19 17:32] VITALS: BP 114/76
[2018-05-19] MEDS ORDERED: OLAN10TA22 PO (18:36)
[2018-05-19] MEDS ORDERED: NALT50TA PO (18:37)
[2018-05-19] MEDS: OLANZapine 10 MG RAPDIS TABLET PO SCH (20:13)
[2018-05-19] MEDS ORDERED: FOLI1 PO (20:29)
[2018-05-19] MEDS ORDERED: MULT-1239 PO (20:29)
[2018-05-19] MEDS ORDERED: THIA1002I IM (20:29)
[2018-05-19] MEDS ORDERED: OLAN10TA3 PO (20:33)
[2018-05-19] MEDS ORDERED: NALT50TA6 PO (20:48)
[2018-05-19] MEDS ORDERED: OLAN10TA6 PO (21:08)
[2018-05-19] MEDS ORDERED: THIA100T67 PO (21:09)
[2018-05-20] MEDS ORDERED: DIAZEPAM 5 MG TABLET PO PRN (07:00)
== END 2018-05-19 20:45 | disposition home or self-care (01) | DRG 885 ==
LOC: EMS 19:28 → B2X 05-14 01:30 → 3EX 05-14 01:31 → 3EI 05-14 14:03
PROVIDERS: ADMIT Psychiatry & Neurology Psychiatry; ATTEND Psychiatry & Neurology Psychiatry
DX: F20.0 Paranoid schizophrenia (principal); N17.9 Acute kidney failure, unspecified; R45.851 Suicidal ideations; E87.6 Hypokalemia; F10.20 Alcohol dependence, uncomplicated; I10 Essential (primary) hypertension; J44.9 Chronic obstructive pulmonary disease, unspecified; K21.9 Gastro-esophageal reflux disease without esophagitis; Z87.891 Personal history of nicotine dependence; Z91.19 Patient's noncompliance with other medical treatment and regimen; B86 Scabies; Z79.899 Other long term (current) drug therapy
CPT/HCPCS: 87081; G0480; J3420

== ENCOUNTER 2018-05-22 01:15 | Emergency (ER) | payer MEDICARE, OTHER ==
[~2018-05-22] VITALS: Ht 180.3 cm; Wt 77.3 kg
[~2018-05-22 01:15] MED LIST changes: +FOLI1 PO; +MULT-1239 PO; +NALT50TA6 PO; +OLAN10TA6 PO; +THIA100T67 PO
[2018-05-22] MEDS ORDERED: ALBUTEROL SULFATE 2.5 MG/0.5 ML NEB SOLUTION NEB ONE (02:15)
[2018-05-22] MEDS ORDERED: IPRATROPIUM BROMIDE 0.5 MG/2.5 ML NEB SOLUTION NEB ONE (02:15)
[2018-05-22 04:50] VITALS: BP 137/82
== END 2018-05-22 05:03 | disposition home or self-care (01) ==
LOC: EMS 01:15
DX: F41.9 Anxiety disorder, unspecified (principal); F10.129 Alcohol abuse with intoxication, unspecified; J44.9 Chronic obstructive pulmonary disease, unspecified; F31.9 Bipolar disorder, unspecified; K21.9 Gastro-esophageal reflux disease without esophagitis; F20.9 Schizophrenia, unspecified; F17.210 Nicotine dependence, cigarettes, uncomplicated
CPT/HCPCS: 94640

== ENCOUNTER 2018-07-12 23:50 | Emergency (ER) | payer MEDICARE, OTHER ==
[~2018-07-12] VITALS: Ht 180.3 cm; Wt 85.0 kg
[~2018-07-12 23:50] MED LIST changes: +DULO20CA30 PO; +NALT50TA PO; -OLAN10TA22 PO; +OLAN5TAB30 PO
[2018-07-13 01:21] LABS: BASOPHILS % (AUTO) 0.9 % (0.0-2.0); EOSINOPHILS % (AUTO) 2.2 % (1.0-6.0); HEMATOCRIT 50.1 % (41-53); HEMOGLOBIN 16.8 g/dL (13.5-17.5); LYMPHOCYTES # (AUTO) 3.8 K/uL (1.0-4.8); LYMPHOCYTES % (AUTO) 39.3 % (22.0-44.0); MEAN CORPUSCULAR HEMOGLOBIN 31.2 pg (26.0-34.0); MEAN CORPUSCULAR HGB CONC 33.5 G/dL (31.0-37.0); MEAN CORPUSCULAR VOLUME 93 fL (80-100); MONOCYTES # (AUTO) 0.6 K/uL (0.1-1.0); MONOCYTES % (AUTO) 5.8 % (2.0-9.0); NEUTROPHILS % (AUTO) 51.8 % (40.0-70.0); PLATELET COUNT (AUTO) 205 K/uL (150-450); RED BLOOD CELL COUNT(AUTO) 5.36 MIL/uL (4.50-5.90)
[2018-07-13 01:47] LABS: ANION GAP 12 mmol/L (8-16); CALCIUM, TOTAL 8.6 mg/dL (8.8-10.5); CARBON DIOXIDE 24 mmol/L (22-29); CHLORIDE 99 mmol/L (98-107); CREATININE 0.78 mg/dL (0.60-1.30); GLOMERULAR FILTR. RATE CALC > 60 mL/min (>60); GLUCOSE,RANDOM 89 mg/dL (70-110); POTASSIUM 3.6 mmol/L (3.5-5.1); SODIUM SERUM 135 mmol/L (136-145); UREA NITROGEN, BLOOD 7 mg/dL (7-18)
[2018-07-13 01:53] LABS: ALANINE AMINOTRANSFERASE 35 U/L (12-78); ALKALINE PHOSPHATASE 94 U/L (46-116); ASPARTATE AMINOTRANSFERASE 33 U/L (15-37); BILIRUBIN,TOTAL 0.4 mg/dL (0.1-1.0); TOTAL PROTEIN, SERUM 7.9 g/dL (6.4-8.2)
[2018-07-13 12:18] LABS: AMPHET/METH SCREEN,URINE NEGATIVE (NEGATIVE); BARBITURATE SCREEN, URINE NEGATIVE (NEGATIVE); BENZODIAZEPINES SCREEN,URINE NEGATIVE (NEGATIVE); CANNABINOID SCREEN,URINE NEGATIVE (NEGATIVE); COCAINE SCREEN,URINE NEGATIVE (NEGATIVE); METHADONE SCREEN, URINE NEGATIVE (NEGATIVE); OPIATE SCREEN,URINE NEGATIVE (NEGATIVE); PHENCYCLIDINE SCREEN,URINE NEGATIVE (NEGATIVE)
[2018-07-14] MEDS ORDERED: ZOLPIDEM TARTRATE 10 MG TABLET PO ONE (04:00)
[2018-07-14 10:15] VITALS: BP 132/73
== END 2018-07-14 10:45 | disposition home or self-care (01) ==
LOC: EMS 23:53
DX: R45.851 Suicidal ideations (principal); F10.10 Alcohol abuse, uncomplicated; R44.0 Auditory hallucinations; F31.9 Bipolar disorder, unspecified; F20.9 Schizophrenia, unspecified; J44.9 Chronic obstructive pulmonary disease, unspecified; K21.9 Gastro-esophageal reflux disease without esophagitis; F17.210 Nicotine dependence, cigarettes, uncomplicated; Y90.8 Blood alcohol level of 240 mg/100 ml or more
CPT/HCPCS: 36415; 80053; 80307; 85025; 99284; G0480

== ENCOUNTER 2018-07-16 11:45 | Inpatient (IN) | payer MEDICARE, MEDICAID ==
[~2018-07-16] VITALS: Ht 180.3 cm; Wt 78.3 kg
[~2018-07-16 11:45] MED LIST changes: -NALT50TA6 PO; -OLAN10TA6 PO
[2018-07-16] MEDS ORDERED: DULO20CA30 PO (12:14)
[2018-07-16] MEDS ORDERED: NALT50TA6 PO (12:14)
[2018-07-16 12:28] VITALS: BP 122/85
[2018-07-16] MEDS ORDERED: LORazepam 2 MG TABLET PO PRN (12:30)
[2018-07-16] MEDS ORDERED: MAG HYDROX/AL HYDROX/SIMETH ES 30 ML SUSPENSION UDCUP PO PRN (12:30)
[2018-07-16] MEDS ORDERED: CYANOCOBALAMIN 1,000 MCG/ML VIAL IM ONE (12:30)
[2018-07-16] MEDS ORDERED: OLANZapine 5 MG RAPDIS TABLET PO PRN (12:30)
[2018-07-16] MEDS ORDERED: MAGNESIUM HYDROXIDE SUSPENSION 30 ML UDCUP PO PRN (12:30)
[2018-07-16] MEDS ORDERED: LOPERAMIDE HCL 2 MG CAPSULE PO PRN ×2 (12:30)
[2018-07-16] MEDS ORDERED: GuaiFENesin/D-METHORPHAN [SUGAR-FREE] 200-20MG/10 ML SYRUP UDCUP PO PRN (12:30)
[2018-07-16] MEDS ORDERED: ZOLPIDEM TARTRATE 10 MG TABLET PO PRN (12:30)
[2018-07-16] MEDS ORDERED: HydrOXYzine PAMOATE 50 MG CAPSULE PO PRN (12:30)
[2018-07-16] MEDS ORDERED: PROMETHAZINE HCL 25 MG TABLET PO PRN (12:30)
[2018-07-16 13:10] VITALS: BP 125/79
[2018-07-16] MEDS: THIAMINE HCL 100 MG TABLET PO SCH (16:44)
[2018-07-16] MEDS: OLANZapine 10 MG RAPDIS TABLET PO SCH (20:27)
[2018-07-17 00:14] VITALS: BP 136/81
[2018-07-17] MEDS ORDERED: LORazepam 2 MG TABLET PO PRN (07:00)
[2018-07-17 08:00] VITALS: BP 135/81
[2018-07-17] MEDS ORDERED: IBUPROFEN 600 MG TABLET PO PRN (08:00)
[2018-07-17] MEDS ORDERED: ONDANSETRON HCL 4 MG TABLET PO PRN (08:00)
[2018-07-17] MEDS ORDERED: BACITRACIN 28.4 GM OINTMENT TP PRN (08:00)
[2018-07-17] MEDS ORDERED: CloNIDine HCL 0.1 MG TABLET PO PRN (08:00)
[2018-07-17] MEDS ORDERED: BENZOCAINE/MENTHOL LOZENGE MM PRN (08:00)
[2018-07-17] MEDS ORDERED: ALBUTEROL SULFATE HFA 90 MCG/PUFF 8 GM INHALER IH PRN (08:00)
[2018-07-17] MEDS ORDERED: PETROLATUM,WHITE 28 GM JELLY TP PRN (08:00)
[2018-07-17 08:03] LABS: AMPHET/METH SCREEN,URINE NEGATIVE (NEGATIVE); BARBITURATE SCREEN, URINE NEGATIVE (NEGATIVE); BENZODIAZEPINES SCREEN,URINE NEGATIVE (NEGATIVE); CANNABINOID SCREEN,URINE NEGATIVE (NEGATIVE); COCAINE SCREEN,URINE NEGATIVE (NEGATIVE); METHADONE SCREEN, URINE NEGATIVE (NEGATIVE); OPIATE SCREEN,URINE NEGATIVE (NEGATIVE)
[2018-07-17 08:07] LABS: PHENCYCLIDINE SCREEN,URINE NEGATIVE (NEGATIVE)
[2018-07-17 08:09] LABS: APPEARANCE,URINE CLEAR (CLEAR); BILIRUBIN,URINE NEGATIVE (NEGATIVE); GLUCOSE, URINE (UA) NEGATIVE (NEGATIVE); KETONES,URINE NEGATIVE (NEGATIVE); LEUKOCYTE ESTERASE ,URINE NEGATIVE (NEGATIVE); NITRATE,URINE NEGATIVE (NEGATIVE); OCCULT BLOOD,URINE SMALL (NEGATIVE); PROTEIN,URINE NEGATIVE (NEGATIVE); UROBILINOGEN,URINE 0.2 mg/dL (<=1.0)
[2018-07-17 08:36] LABS: BACTERIA,URINE None Seen /HPF (None Seen); RBC,URINE 0-2 /HPF (0-2); WBC,URINE None Seen /HPF (0-5)
[2018-07-17] MEDS: LORazepam 2 MG TABLET PO SCH ×4 (09:43→20:54)
[2018-07-17] MEDS: NALTREXONE HCL 50 MG TABLET PO SCH (09:43)
[2018-07-17] MEDS: DULoxetine HCL 20 MG CAPSULE PO SCH (09:43)
[2018-07-17] MEDS: THIAMINE HCL 100 MG TABLET PO SCH ×2 (09:43→16:24)
[2018-07-17] MEDS: MULTIVITAMINS WITH MINERALS, THERAPEUTIC TABLET PO SCH (09:44)
[2018-07-17] MEDS: FOLIC ACID 1 MG TABLET PO SCH (09:44)
[2018-07-17] MEDS: OLANZapine 10 MG RAPDIS TABLET PO SCH (20:53)
[2018-07-18] VITALS: BP 119/96
[2018-07-18 00:56] VITALS: BP 120/78
[2018-07-18 03:10] VITALS: BP 121/68
[2018-07-18] MEDS: ACETAMINOPHEN 325 MG TABLET PO PRN ×2 (03:11→09:13)
[2018-07-18] MEDS: LORazepam 2 MG TABLET PO SCH ×4 (09:10→20:30)
[2018-07-18] MEDS: NALTREXONE HCL 50 MG TABLET PO SCH (09:11)
[2018-07-18] MEDS: MULTIVITAMINS WITH MINERALS, THERAPEUTIC TABLET PO SCH (09:11)
[2018-07-18] MEDS: FOLIC ACID 1 MG TABLET PO SCH (09:11)
[2018-07-18] MEDS: THIAMINE HCL 100 MG TABLET PO SCH ×2 (09:11→16:12)
[2018-07-18] MEDS: DULoxetine HCL 20 MG CAPSULE PO SCH (09:12)
[2018-07-18 17:45] VITALS: BP 111/80
[2018-07-18] MEDS: OLANZapine 10 MG RAPDIS TABLET PO SCH (20:30)
[2018-07-19] MEDS ORDERED: LORazepam 1 MG TABLET PO PRN (07:00)
[2018-07-19] MEDS: FOLIC ACID 1 MG TABLET PO SCH (09:00)
[2018-07-19] MEDS: NALTREXONE HCL 50 MG TABLET PO SCH (09:00)
[2018-07-19] MEDS: MULTIVITAMINS WITH MINERALS, THERAPEUTIC TABLET PO SCH (09:00)
[2018-07-19] MEDS: DULoxetine HCL 20 MG CAPSULE PO SCH (09:00)
[2018-07-19] MEDS: LORazepam 1 MG TABLET PO SCH ×4 (09:00→20:33)
[2018-07-19] MEDS: THIAMINE HCL 100 MG TABLET PO SCH ×2 (09:00→16:23)
[2018-07-19] MEDS: OLANZapine 10 MG RAPDIS TABLET PO SCH (20:33)
[2018-07-20] MEDS ORDERED: LORazepam 1 MG TABLET PO PRN (07:00)
[2018-07-20] MEDS: THIAMINE HCL 100 MG TABLET PO SCH ×2 (10:24→16:18)
[2018-07-20] MEDS: FOLIC ACID 1 MG TABLET PO SCH (10:24)
[2018-07-20] MEDS: MULTIVITAMINS WITH MINERALS, THERAPEUTIC TABLET PO SCH (10:24)
[2018-07-20] MEDS: DULoxetine HCL 20 MG CAPSULE PO SCH (10:24)
[2018-07-20] MEDS: NALTREXONE HCL 50 MG TABLET PO SCH (10:24)
[2018-07-20 11:22] VITALS: BP 124/92
[2018-07-20 16:10] VITALS: BP 121/69
[2018-07-20 16:39] VITALS: BP 121/69
[2018-07-20] MEDS: OLANZapine 10 MG RAPDIS TABLET PO SCH (20:49)
[2018-07-21 04:51] VITALS: BP 144/91
[2018-07-21] MEDS: FOLIC ACID 1 MG TABLET PO SCH (09:19)
[2018-07-21] MEDS: NALTREXONE HCL 50 MG TABLET PO SCH (09:19)
[2018-07-21] MEDS: DULoxetine HCL 20 MG CAPSULE PO SCH (09:19)
[2018-07-21] MEDS: MULTIVITAMINS WITH MINERALS, THERAPEUTIC TABLET PO SCH (09:19)
[2018-07-21] MEDS: THIAMINE HCL 100 MG TABLET PO SCH (09:19)
[2018-07-21] MEDS ORDERED: NALT50TA PO (12:32)
[2018-07-21] MEDS ORDERED: OLAN10TA22 PO (12:32)
[2018-07-21] MEDS ORDERED: DULO20CA30 PO (12:32)
== END 2018-07-21 15:15 | disposition home or self-care (01) | DRG 885 ==
LOC: B2X 12:53 → B2S 13:54 → 3EI 07-18 17:20
PROVIDERS: ADMIT Psychiatry & Neurology Psychiatry; ATTEND Psychiatry & Neurology Psychiatry
DX: F25.9 Schizoaffective disorder, unspecified (principal); R45.851 Suicidal ideations; F32.9 Major depressive disorder, single episode, unspecified; F60.0 Paranoid personality disorder; G47.00 Insomnia, unspecified; I10 Essential (primary) hypertension; J44.9 Chronic obstructive pulmonary disease, unspecified; K21.9 Gastro-esophageal reflux disease without esophagitis; K59.00 Constipation, unspecified; F41.9 Anxiety disorder, unspecified; F17.200 Nicotine dependence, unspecified, uncomplicated; F17.210 Nicotine dependence, cigarettes, uncomplicated; E55.9 Vitamin D deficiency, unspecified; F10.10 Alcohol abuse, uncomplicated; Z56.0 Unemployment, unspecified; Z79.899 Other long term (current) drug therapy
CPT/HCPCS: J3420

== ENCOUNTER 2018-07-22 20:05 | Inpatient (IN) | payer MEDICARE, MEDICAID ==
[~2018-07-22] VITALS: Ht 180.3 cm; Wt 78.0 kg
[~2018-07-22 20:05] MED LIST changes: -FOLI1 PO; -MULT-1239 PO; +OLAN10TA22 PO; -OLAN5TAB30 PO; -THIA100T67 PO
[2018-07-22 21:16] LABS: BASOPHILS % (AUTO) 0.6 % (0.0-2.0); EOSINOPHILS % (AUTO) 1.7 % (1.0-6.0); HEMATOCRIT 49.9 % (41-53); HEMOGLOBIN 17.1 g/dL (13.5-17.5); LYMPHOCYTES # (AUTO) 2.5 K/uL (1.0-4.8); LYMPHOCYTES % (AUTO) 28.1 % (22.0-44.0); MEAN CORPUSCULAR HEMOGLOBIN 31.8 pg (26.0-34.0); MEAN CORPUSCULAR HGB CONC 34.3 G/dL (31.0-37.0); MEAN CORPUSCULAR VOLUME 93 fL (80-100); MONOCYTES # (AUTO) 0.8 K/uL (0.1-1.0); MONOCYTES % (AUTO) 9.1 % (2.0-9.0); NEUTROPHILS # (AUTO) 5.3 K/uL (1.8-7.7); NEUTROPHILS % (AUTO) 60.5 % (40.0-70.0); PLATELET COUNT (AUTO) 206 K/uL (150-450); RED BLOOD CELL COUNT(AUTO) 5.38 MIL/uL (4.50-5.90)
[2018-07-22 21:27] LABS: ANION GAP 9 mmol/L (8-16); CALCIUM, TOTAL 9.2 mg/dL (8.8-10.5); CARBON DIOXIDE 27 mmol/L (22-29); CHLORIDE 102 mmol/L (98-107); CREATININE 0.99 mg/dL (0.60-1.30); GLOMERULAR FILTR. RATE CALC > 60 mL/min (>60); GLUCOSE,RANDOM 92 mg/dL (70-110); SODIUM SERUM 138 mmol/L (136-145); UREA NITROGEN, BLOOD 10 mg/dL (7-18)
[2018-07-22 21:33] LABS: ALANINE AMINOTRANSFERASE 38 U/L (12-78); ALBUMIN 3.9 g/dL (3.4-5.0); ALKALINE PHOSPHATASE 80 U/L (46-116); ASPARTATE AMINOTRANSFERASE 23 U/L (15-37); BILIRUBIN,TOTAL 0.4 mg/dL (0.1-1.0); TOTAL PROTEIN, SERUM 8.1 g/dL (6.4-8.2)
[2018-07-22 21:37] LABS: AMPHET/METH SCREEN,URINE NEGATIVE (NEGATIVE); BARBITURATE SCREEN, URINE NEGATIVE (NEGATIVE); BENZODIAZEPINES SCREEN,URINE NEGATIVE (NEGATIVE); CANNABINOID SCREEN,URINE NEGATIVE (NEGATIVE); COCAINE SCREEN,URINE NEGATIVE (NEGATIVE); METHADONE SCREEN, URINE NEGATIVE (NEGATIVE); OPIATE SCREEN,URINE NEGATIVE (NEGATIVE)
[2018-07-22 21:40] LABS: PHENCYCLIDINE SCREEN,URINE NEGATIVE (NEGATIVE)
[2018-07-23] MEDS ORDERED: PROMETHAZINE HCL 25 MG TABLET PO PRN (13:15)
[2018-07-23] MEDS ORDERED: LOPERAMIDE HCL 2 MG CAPSULE PO PRN ×3 (13:15→20:00)
[2018-07-23] MEDS ORDERED: ZOLPIDEM TARTRATE 10 MG TABLET PO PRN (13:15)
[2018-07-23] MEDS ORDERED: ACETAMINOPHEN 325 MG TABLET PO PRN ×2 (13:15→20:00)
[2018-07-23] MEDS ORDERED: HydrOXYzine PAMOATE 50 MG CAPSULE PO PRN (13:15)
[2018-07-23] MEDS ORDERED: MAG HYDROX/AL HYDROX/SIMETH ES 30 ML SUSPENSION UDCUP PO PRN ×2 (13:15→20:00)
[2018-07-23] MEDS ORDERED: GuaiFENesin/D-METHORPHAN [SUGAR-FREE] 200-20MG/10 ML SYRUP UDCUP PO PRN ×2 (13:15→20:00)
[2018-07-23] MEDS ORDERED: OLANZapine 5 MG RAPDIS TABLET PO PRN (13:15)
[2018-07-23] MEDS ORDERED: LORazepam 2 MG TABLET PO PRN ×2 (13:15→13:30)
[2018-07-23] MEDS ORDERED: MAGNESIUM HYDROXIDE SUSPENSION 30 ML UDCUP PO PRN ×2 (13:15→20:00)
[2018-07-23] MEDS ORDERED: CYANOCOBALAMIN 1,000 MCG/ML VIAL IM ONE (13:30)
[2018-07-23 19:00] VITALS: BP 141/93
[2018-07-23 20:00] VITALS: BP 109/83
[2018-07-23] MEDS ORDERED: CloNIDine HCL 0.1 MG TABLET PO PRN (20:00)
[2018-07-23] MEDS ORDERED: DOCUSATE SODIUM 100 MG CAPSULE PO PRN (20:00)
[2018-07-23] MEDS ORDERED: NICOTINE 14 MG/24 HOUR PATCH TD PRN (20:00)
[2018-07-23] MEDS ORDERED: ALBUTEROL SULFATE HFA 90 MCG/PUFF 8 GM INHALER IH PRN (20:00)
[2018-07-23] MEDS ORDERED: ONDANSETRON HCL 4 MG TABLET PO PRN (20:00)
[2018-07-23] MEDS ORDERED: PETROLATUM,WHITE 28 GM JELLY TP PRN (20:00)
[2018-07-23] MEDS ORDERED: IBUPROFEN 400 MG TABLET PO PRN (20:00)
[2018-07-23] MEDS: THIAMINE HCL 100 MG TABLET PO SCH (20:40)
[2018-07-23] MEDS: OLANZapine 5 MG RAPDIS TABLET PO SCH (20:40)
[2018-07-23 21:00] VITALS: BP 125/80
[2018-07-23 22:00] VITALS: BP 100/50
[2018-07-24] VITALS (7 sets, daily range): BP systolic 102–148; BP diastolic 61–79
[2018-07-24] MEDS ORDERED: LORazepam 2 MG TABLET PO PRN (07:00)
[2018-07-24] MEDS: LORazepam 2 MG TABLET PO SCH ×4 (10:42→20:47)
[2018-07-24] MEDS: NALTREXONE HCL 50 MG TABLET PO SCH (10:42)
[2018-07-24] MEDS: THIAMINE HCL 100 MG TABLET PO SCH ×2 (10:42→17:41)
[2018-07-24] MEDS: MULTIVITAMINS WITH MINERALS, THERAPEUTIC TABLET PO SCH (10:42)
[2018-07-24] MEDS: FOLIC ACID 1 MG TABLET PO SCH (10:42)
[2018-07-24] MEDS: DULoxetine HCL 20 MG CAPSULE PO SCH (10:42)
[2018-07-24] MEDS: OLANZapine 5 MG RAPDIS TABLET PO SCH (20:44)
[2018-07-25 06:00] VITALS: BP 124/77
[2018-07-25] MEDS: MULTIVITAMINS WITH MINERALS, THERAPEUTIC TABLET PO SCH (09:39)
[2018-07-25] MEDS: DULoxetine HCL 20 MG CAPSULE PO SCH (09:39)
[2018-07-25] MEDS: NALTREXONE HCL 50 MG TABLET PO SCH (09:39)
[2018-07-25] MEDS: FOLIC ACID 1 MG TABLET PO SCH (09:39)
[2018-07-25] MEDS: THIAMINE HCL 100 MG TABLET PO SCH ×2 (09:39→18:27)
[2018-07-25] MEDS: LORazepam 2 MG TABLET PO SCH ×4 (09:39→21:43)
[2018-07-25 16:45] VITALS: BP 131/78
[2018-07-25] MEDS: OLANZapine 5 MG RAPDIS TABLET PO SCH (20:52)
[2018-07-26] MEDS ORDERED: LORazepam 1 MG TABLET PO PRN (07:00)
[2018-07-26] MEDS: NALTREXONE HCL 50 MG TABLET PO SCH (10:24)
[2018-07-26] MEDS: FOLIC ACID 1 MG TABLET PO SCH (10:24)
[2018-07-26] MEDS: MULTIVITAMINS WITH MINERALS, THERAPEUTIC TABLET PO SCH (10:24)
[2018-07-26] MEDS: THIAMINE HCL 100 MG TABLET PO SCH ×2 (10:24→16:25)
[2018-07-26] MEDS: LORazepam 1 MG TABLET PO SCH ×4 (10:25→20:53)
[2018-07-26] MEDS: DULoxetine HCL 20 MG CAPSULE PO SCH (10:28)
[2018-07-26 13:05] VITALS: BP 109/72
[2018-07-26 13:06] VITALS: BP 109/72
[2018-07-26] MEDS: OLANZapine 5 MG RAPDIS TABLET PO SCH (20:52)
[2018-07-27] MEDS ORDERED: LORazepam 1 MG TABLET PO PRN (07:00)
[2018-07-27] MEDS: NALTREXONE HCL 50 MG TABLET PO SCH (09:57)
[2018-07-27] MEDS: FOLIC ACID 1 MG TABLET PO SCH (09:57)
[2018-07-27] MEDS: MULTIVITAMINS WITH MINERALS, THERAPEUTIC TABLET PO SCH (09:57)
[2018-07-27] MEDS: THIAMINE HCL 100 MG TABLET PO SCH (09:57)
[2018-07-27] MEDS: DULoxetine HCL 20 MG CAPSULE PO SCH (09:57)
[2018-07-27 13:17] VITALS: BP 129/76
[2018-07-27 13:23] VITALS: BP 129/76
[2018-07-27] MEDS ORDERED: DULO20CA30 PO (15:38)
[2018-07-27] MEDS ORDERED: NALT50TA6 PO (15:39)
[2018-07-27] MEDS ORDERED: OLAN5TAB40 PO (15:40)
== END 2018-07-27 16:41 | disposition home or self-care (01) | DRG 885 ==
LOC: EMS 20:06 → 3EX 07-23 18:08 → 3EI 07-24 15:54
PROVIDERS: ADMIT Psychiatry & Neurology Psychiatry; ATTEND Psychiatry & Neurology Psychiatry
DX: F25.0 Schizoaffective disorder, bipolar type (principal); R45.851 Suicidal ideations; F17.210 Nicotine dependence, cigarettes, uncomplicated; E55.9 Vitamin D deficiency, unspecified; G47.00 Insomnia, unspecified; I10 Essential (primary) hypertension; J44.9 Chronic obstructive pulmonary disease, unspecified; K21.9 Gastro-esophageal reflux disease without esophagitis; F41.9 Anxiety disorder, unspecified; K59.00 Constipation, unspecified; N40.0 Benign prostatic hyperplasia without lower urinary tract symptoms; Z91.19 Patient's noncompliance with other medical treatment and regimen; Z79.899 Other long term (current) drug therapy
CPT/HCPCS: 87081; G0378; G0480

== ENCOUNTER 2018-07-30 21:15 | Inpatient (IN) | payer MEDICARE, MEDICAID ==
[~2018-07-30] VITALS: Ht 180.3 cm; Wt 87.8 kg
[~2018-07-30 21:15] MED LIST changes: -NALT50TA PO; +NALT50TA6 PO; -OLAN10TA22 PO; +OLAN5TAB40 PO
[2018-07-30 23:12] LABS: EOSINOPHILS % (AUTO) 1.6 % (1.0-6.0); HEMATOCRIT 49.7 % (41-53); HEMOGLOBIN 16.8 g/dL (13.5-17.5); LYMPHOCYTES # (AUTO) 3.8 K/uL (1.0-4.8); LYMPHOCYTES % (AUTO) 35.6 % (22.0-44.0); MEAN CORPUSCULAR HEMOGLOBIN 31.2 pg (26.0-34.0); MEAN CORPUSCULAR HGB CONC 33.7 G/dL (31.0-37.0); MEAN CORPUSCULAR VOLUME 93 fL (80-100); MONOCYTES # (AUTO) 0.6 K/uL (0.1-1.0); MONOCYTES % (AUTO) 5.2 % (2.0-9.0); NEUTROPHILS # (AUTO) 6.1 K/uL (1.8-7.7); NEUTROPHILS % (AUTO) 56.6 % (40.0-70.0); PLATELET COUNT (AUTO) 254 K/uL (150-450); RED BLOOD CELL COUNT(AUTO) 5.37 MIL/uL (4.50-5.90); RED CELL DISTRIBUTION WIDTH 13.8 % (11.5-14.5)
[2018-07-30 23:22] LABS: ANION GAP 8 mmol/L (8-16); CALCIUM, TOTAL 8.6 mg/dL (8.8-10.5); CARBON DIOXIDE 29 mmol/L (22-29); CHLORIDE 105 mmol/L (98-107); CREATININE 0.92 mg/dL (0.60-1.30); GLOMERULAR FILTR. RATE CALC > 60 mL/min (>60); GLUCOSE,RANDOM 95 mg/dL (70-110); POTASSIUM 3.6 mmol/L (3.5-5.1); SODIUM SERUM 142 mmol/L (136-145); UREA NITROGEN, BLOOD 19 mg/dL (7-18)
[2018-07-30 23:28] LABS: ALANINE AMINOTRANSFERASE 30 U/L (12-78); ALBUMIN 3.7 g/dL (3.4-5.0); ALKALINE PHOSPHATASE 98 U/L (46-116); ASPARTATE AMINOTRANSFERASE 20 U/L (15-37); BILIRUBIN,TOTAL 0.2 mg/dL (0.1-1.0); TOTAL PROTEIN, SERUM 7.6 g/dL (6.4-8.2)
[2018-07-30] MEDS ORDERED: TraZODone HCL 50 MG TABLET PO ONE (23:45)
[2018-07-30 23:48] LABS: AMPHET/METH SCREEN,URINE NEGATIVE (NEGATIVE); BARBITURATE SCREEN, URINE NEGATIVE (NEGATIVE); BENZODIAZEPINES SCREEN,URINE NEGATIVE (NEGATIVE); CANNABINOID SCREEN,URINE NEGATIVE (NEGATIVE); COCAINE SCREEN,URINE NEGATIVE (NEGATIVE); METHADONE SCREEN, URINE NEGATIVE (NEGATIVE); OPIATE SCREEN,URINE NEGATIVE (NEGATIVE)
[2018-07-30 23:49] LABS: PHENCYCLIDINE SCREEN,URINE NEGATIVE (NEGATIVE)
[2018-07-31] VITALS (10 sets, daily range): BP systolic 105–140; BP diastolic 60–94
[2018-07-31] MEDS ORDERED: OLANZapine 5 MG RAPDIS TABLET PO PRN (01:00)
[2018-07-31] MEDS ORDERED: ZOLPIDEM TARTRATE 10 MG TABLET PO PRN (01:00)
[2018-07-31] MEDS ORDERED: LORazepam 2 MG TABLET PO PRN ×2 (01:00)
[2018-07-31 02:46] LABS: APPEARANCE,URINE CLEAR (CLEAR); BILIRUBIN,URINE NEGATIVE (NEGATIVE); GLUCOSE, URINE (UA) NEGATIVE (NEGATIVE); KETONES,URINE NEGATIVE (NEGATIVE); LEUKOCYTE ESTERASE ,URINE NEGATIVE (NEGATIVE); NITRATE,URINE NEGATIVE (NEGATIVE); OCCULT BLOOD,URINE SMALL (NEGATIVE); PH,URINE 5.5 (5.0-8.0); PROTEIN,URINE NEGATIVE (NEGATIVE); UROBILINOGEN,URINE 0.2 mg/dL (<=1.0)
[2018-07-31 02:51] LABS: RBC,URINE 0-2 /HPF (0-2); WBC,URINE 0-2 /HPF (0-5)
[2018-07-31 02:52] LABS: BACTERIA,URINE None Seen /HPF (None Seen); SQUAMOUS EPITHELIAL CELL,UR Rare /LPF (None Seen)
[2018-07-31] MEDS ORDERED: CloNIDine HCL 0.1 MG TABLET PO PRN (12:45)
[2018-07-31] MEDS ORDERED: PNEUMOCOCCAL VACCINE POLYVALENT 0.5 ML VIAL [PPSV23] IM ONE (12:45)
[2018-07-31] MEDS ORDERED: GuaiFENesin/D-METHORPHAN [SUGAR-FREE] 200-20MG/10 ML SYRUP UDCUP PO PRN ×2 (12:45→14:15)
[2018-07-31] MEDS ORDERED: MAGNESIUM HYDROXIDE SUSPENSION 30 ML UDCUP PO PRN (12:45)
[2018-07-31] MEDS ORDERED: ONDANSETRON HCL 4 MG TABLET PO PRN (12:45)
[2018-07-31] MEDS ORDERED: PETROLATUM,WHITE 28 GM JELLY TP PRN (12:45)
[2018-07-31] MEDS ORDERED: MAG HYDROX/AL HYDROX/SIMETH ES 30 ML SUSPENSION UDCUP PO PRN (12:45)
[2018-07-31] MEDS ORDERED: ALBUTEROL SULFATE HFA 90 MCG/PUFF 8 GM INHALER IH PRN (12:45)
[2018-07-31] MEDS ORDERED: LOPERAMIDE HCL 2 MG CAPSULE PO PRN ×3 (12:45→14:15)
[2018-07-31] MEDS ORDERED: HydrOXYzine PAMOATE 50 MG CAPSULE PO PRN (14:15)
[2018-07-31] MEDS ORDERED: CYANOCOBALAMIN 1,000 MCG/ML VIAL IM ONE (14:15)
[2018-07-31] MEDS ORDERED: PROMETHAZINE HCL 25 MG TABLET PO PRN ×2 (14:15)
[2018-07-31] MEDS: ACETAMINOPHEN 325 MG TABLET PO PRN (16:12)
[2018-07-31] MEDS: THIAMINE HCL 100 MG TABLET PO SCH (16:12)
[2018-07-31] MEDS: OLANZapine 5 MG RAPDIS TABLET PO SCH (20:50)
[2018-08-01] MEDS ORDERED: LORazepam 2 MG TABLET PO PRN (07:00)
[2018-08-01] MEDS ORDERED: TOPIRAMATE 25 MG TABLET PO SCH (09:00)
[2018-08-01] MEDS ORDERED: LORazepam 2 MG TABLET PO SCH (09:00)
[2018-08-01] MEDS: FOLIC ACID 1 MG TABLET PO SCH (09:05)
[2018-08-01] MEDS: NALTREXONE HCL 50 MG TABLET PO SCH (09:05)
[2018-08-01] MEDS: MULTIVITAMINS WITH MINERALS, THERAPEUTIC TABLET PO SCH (09:05)
[2018-08-01] MEDS: THIAMINE HCL 100 MG TABLET PO SCH ×2 (09:05→16:12)
[2018-08-01 09:12] VITALS: BP 110/74
[2018-08-01] MEDS: ACETAMINOPHEN 325 MG TABLET PO PRN (09:47)
[2018-08-01 13:12] VITALS: BP 111/73
[2018-08-01] MEDS ORDERED: HYDROCORTISONE 0.5% 30 GM CREAM TP PRN (14:45)
[2018-08-01] MEDS ORDERED: ChlordiazePOXIDE HCL 25 MG CAPSULE PO PRN (14:45)
[2018-08-01] MEDS: OLANZapine 5 MG RAPDIS TABLET PO SCH (20:06)
[2018-08-02 04:29] VITALS: BP 126/77
[2018-08-02 06:19] VITALS: BP 129/82
[2018-08-02] MEDS ORDERED: ChlordiazePOXIDE HCL 25 MG CAPSULE PO PRN (07:00)
[2018-08-02 08:17] VITALS: BP 136/92
[2018-08-02 08:30] VITALS: BP 136/92
[2018-08-02] MEDS: FOLIC ACID 1 MG TABLET PO SCH (08:50)
[2018-08-02] MEDS: MULTIVITAMINS WITH MINERALS, THERAPEUTIC TABLET PO SCH (08:50)
[2018-08-02] MEDS: THIAMINE HCL 100 MG TABLET PO SCH ×2 (08:50→16:23)
[2018-08-02] MEDS: ChlordiazePOXIDE HCL 25 MG CAPSULE PO SCH ×4 (08:50→20:04)
[2018-08-02] MEDS: NALTREXONE HCL 50 MG TABLET PO SCH (09:15)
[2018-08-02 16:05] VITALS: BP 122/83
[2018-08-02 17:32] VITALS: BP 122/83
[2018-08-02] MEDS: OLANZapine 5 MG RAPDIS TABLET PO SCH (20:05)
[2018-08-03 06:25] VITALS: BP 112/78
[2018-08-03] MEDS ORDERED: LORazepam 1 MG TABLET PO PRN (07:00)
[2018-08-03] MEDS: THIAMINE HCL 100 MG TABLET PO SCH ×2 (08:48→16:30)
[2018-08-03] MEDS: MULTIVITAMINS WITH MINERALS, THERAPEUTIC TABLET PO SCH (08:48)
[2018-08-03] MEDS: ChlordiazePOXIDE HCL 25 MG CAPSULE PO SCH ×4 (08:48→20:31)
[2018-08-03] MEDS: FOLIC ACID 1 MG TABLET PO SCH (08:48)
[2018-08-03] MEDS: NALTREXONE HCL 50 MG TABLET PO SCH (08:48)
[2018-08-03] MEDS ORDERED: LORazepam 1 MG TABLET PO SCH (09:00)
[2018-08-03] MEDS: OLANZapine 5 MG RAPDIS TABLET PO SCH (20:32)
[2018-08-04] MEDS ORDERED: ChlordiazePOXIDE HCL 10 MG CAPSULE PO PRN (07:00)
[2018-08-04] MEDS ORDERED: LORazepam 1 MG TABLET PO PRN (07:00)
[2018-08-04] MEDS: FOLIC ACID 1 MG TABLET PO SCH (09:01)
[2018-08-04] MEDS: ChlordiazePOXIDE HCL 10 MG CAPSULE PO SCH ×4 (09:01→20:02)
[2018-08-04] MEDS: MULTIVITAMINS WITH MINERALS, THERAPEUTIC TABLET PO SCH (09:01)
[2018-08-04] MEDS: THIAMINE HCL 100 MG TABLET PO SCH ×2 (09:01→16:21)
[2018-08-04] MEDS: NALTREXONE HCL 50 MG TABLET PO SCH (09:01)
[2018-08-04] MEDS: MAGNESIUM HYDROXIDE SUSPENSION 30 ML UDCUP PO PRN (17:17)
[2018-08-04] MEDS: OLANZapine 5 MG RAPDIS TABLET PO SCH (20:03)
[2018-08-05] MEDS ORDERED: ChlordiazePOXIDE HCL 10 MG CAPSULE PO PRN (07:00)
[2018-08-05] MEDS: FOLIC ACID 1 MG TABLET PO SCH (08:54)
[2018-08-05] MEDS: NALTREXONE HCL 50 MG TABLET PO SCH (08:54)
[2018-08-05] MEDS: MULTIVITAMINS WITH MINERALS, THERAPEUTIC TABLET PO SCH (08:55)
[2018-08-05] MEDS: THIAMINE HCL 100 MG TABLET PO SCH ×2 (08:55→16:51)
[2018-08-05 16:04] VITALS: BP 103/66
[2018-08-05] MEDS: OLANZapine 5 MG RAPDIS TABLET PO SCH (20:05)
[2018-08-06 01:51] VITALS: BP 129/74
[2018-08-06] MEDS: NALTREXONE HCL 50 MG TABLET PO SCH (08:14)
[2018-08-06] MEDS: FOLIC ACID 1 MG TABLET PO SCH (08:15)
[2018-08-06] MEDS: THIAMINE HCL 100 MG TABLET PO SCH ×2 (08:15→16:15)
[2018-08-06] MEDS: MULTIVITAMINS WITH MINERALS, THERAPEUTIC TABLET PO SCH (08:15)
[2018-08-06 17:20] VITALS: BP 108/75
[2018-08-06] MEDS: OLANZapine 5 MG RAPDIS TABLET PO SCH (20:08)
[2018-08-07 06:05] VITALS: BP 110/72
[2018-08-07] MEDS: FOLIC ACID 1 MG TABLET PO SCH (09:23)
[2018-08-07] MEDS: NALTREXONE HCL 50 MG TABLET PO SCH (09:23)
[2018-08-07] MEDS: THIAMINE HCL 100 MG TABLET PO SCH ×2 (09:24→16:33)
[2018-08-07] MEDS: MULTIVITAMINS WITH MINERALS, THERAPEUTIC TABLET PO SCH (09:24)
[2018-08-07] MEDS: OLANZapine 5 MG RAPDIS TABLET PO SCH (20:39)
[2018-08-08 00:19] VITALS: BP 105/62
[2018-08-08 08:10] VITALS: BP 116/73
[2018-08-08] MEDS: FOLIC ACID 1 MG TABLET PO SCH (09:07)
[2018-08-08] MEDS: MULTIVITAMINS WITH MINERALS, THERAPEUTIC TABLET PO SCH (09:07)
[2018-08-08] MEDS: THIAMINE HCL 100 MG TABLET PO SCH ×2 (09:08→17:34)
[2018-08-08] MEDS: NALTREXONE HCL 50 MG TABLET PO SCH (09:08)
[2018-08-08] MEDS: OLANZapine 5 MG RAPDIS TABLET PO SCH (20:26)
[2018-08-09 06:16] VITALS: BP 113/68
[2018-08-09 08:36] VITALS: BP 133/86
[2018-08-09] MEDS: FOLIC ACID 1 MG TABLET PO SCH (09:18)
[2018-08-09] MEDS: NALTREXONE HCL 50 MG TABLET PO SCH (09:18)
[2018-08-09] MEDS: MULTIVITAMINS WITH MINERALS, THERAPEUTIC TABLET PO SCH (09:18)
[2018-08-09] MEDS: THIAMINE HCL 100 MG TABLET PO SCH ×2 (09:18→17:04)
[2018-08-09 16:12] VITALS: BP 125/89
[2018-08-09] MEDS: OLANZapine 5 MG RAPDIS TABLET PO SCH (20:03)
[2018-08-10 05:30] VITALS: BP 117/76
[2018-08-10 08:33] VITALS: BP 128/87
[2018-08-10] MEDS: NALTREXONE HCL 50 MG TABLET PO SCH (09:09)
[2018-08-10] MEDS: MULTIVITAMINS WITH MINERALS, THERAPEUTIC TABLET PO SCH (09:09)
[2018-08-10] MEDS: FOLIC ACID 1 MG TABLET PO SCH (09:10)
[2018-08-10] MEDS: THIAMINE HCL 100 MG TABLET PO SCH (09:10)
[2018-08-10 16:04] VITALS: BP 107/82
[2018-08-10] MEDS: OLANZapine 5 MG RAPDIS TABLET PO SCH (20:44)
[2018-08-11 06:28] VITALS: BP 110/68
[2018-08-11] MEDS: NALTREXONE HCL 50 MG TABLET PO SCH (08:47)
[2018-08-11] MEDS: MULTIVITAMINS WITH MINERALS, THERAPEUTIC TABLET PO SCH (08:47)
[2018-08-11 16:03] VITALS: BP 115/75
[2018-08-11] MEDS ORDERED: ARIPiprazole ER SUSPENSION 400 MG VIAL IM ONE (16:30)
[2018-08-12 00:05] VITALS: BP 116/72
[2018-08-12] MEDS: NALTREXONE HCL 50 MG TABLET PO SCH (08:30)
[2018-08-12] MEDS: MULTIVITAMINS WITH MINERALS, THERAPEUTIC TABLET PO SCH (08:30)
[2018-08-12 16:09] VITALS: BP 112/79
[2018-08-12] MEDS: CARBAMIDE PEROXIDE 6.5% 15 ML OTIC SOLUTION AU SCH (17:25)
[2018-08-12] MEDS: OLANZapine 5 MG RAPDIS TABLET PO SCH (21:34)
[2018-08-13] MEDS: NALTREXONE HCL 50 MG TABLET PO SCH (08:31)
[2018-08-13] MEDS: MULTIVITAMINS WITH MINERALS, THERAPEUTIC TABLET PO SCH (08:31)
[2018-08-13] MEDS: CARBAMIDE PEROXIDE 6.5% 15 ML OTIC SOLUTION AU SCH ×2 (08:32→16:51)
[2018-08-13 18:35] VITALS: BP 106/62
[2018-08-13] MEDS: OLANZapine 5 MG RAPDIS TABLET PO SCH (20:09)
[2018-08-14] MEDS: NALTREXONE HCL 50 MG TABLET PO SCH (08:28)
[2018-08-14] MEDS: MULTIVITAMINS WITH MINERALS, THERAPEUTIC TABLET PO SCH (08:28)
[2018-08-14] MEDS: CARBAMIDE PEROXIDE 6.5% 15 ML OTIC SOLUTION AU SCH ×2 (08:28→17:59)
[2018-08-14] MEDS: OLANZapine 5 MG RAPDIS TABLET PO SCH (20:26)
[2018-08-15] MEDS: NALTREXONE HCL 50 MG TABLET PO SCH (08:20)
[2018-08-15] MEDS: MULTIVITAMINS WITH MINERALS, THERAPEUTIC TABLET PO SCH (08:20)
[2018-08-15] MEDS: CARBAMIDE PEROXIDE 6.5% 15 ML OTIC SOLUTION AU SCH ×2 (08:21→16:31)
[2018-08-15 16:11] VITALS: BP 123/86
[2018-08-15] MEDS: OLANZapine 5 MG RAPDIS TABLET PO SCH (20:51)
[2018-08-16 01:15] VITALS: BP 136/82
[2018-08-16] MEDS: ACETAMINOPHEN 325 MG TABLET PO PRN (01:21)
[2018-08-16 01:29] VITALS: BP 144/69
[2018-08-16] MEDS: MULTIVITAMINS WITH MINERALS, THERAPEUTIC TABLET PO SCH (08:24)
[2018-08-16] MEDS: NALTREXONE HCL 50 MG TABLET PO SCH (08:24)
[2018-08-16] MEDS: CARBAMIDE PEROXIDE 6.5% 15 ML OTIC SOLUTION AU SCH ×2 (09:31→16:45)
[2018-08-16 16:56] VITALS: BP 121/88
[2018-08-16] MEDS: OLANZapine 5 MG RAPDIS TABLET PO SCH (20:39)
[2018-08-17 03:20] VITALS: BP 134/82
[2018-08-17] MEDS: IBUPROFEN 400 MG TABLET PO PRN ×2 (03:20→17:57)
[2018-08-17] MEDS: NALTREXONE HCL 50 MG TABLET PO SCH (08:08)
[2018-08-17] MEDS: MULTIVITAMINS WITH MINERALS, THERAPEUTIC TABLET PO SCH (08:08)
[2018-08-17 16:04] VITALS: BP 138/89
[2018-08-17] MEDS: OLANZapine 5 MG RAPDIS TABLET PO SCH (20:25)
[2018-08-18 02:00] VITALS: BP 121/78
[2018-08-18] MEDS: IBUPROFEN 400 MG TABLET PO PRN (02:00)
[2018-08-18 03:36] VITALS: BP 126/86
[2018-08-18] MEDS: ACETAMINOPHEN 325 MG TABLET PO PRN ×2 (03:40→12:41)
[2018-08-18 08:21] VITALS: BP 119/84
[2018-08-18] MEDS: NALTREXONE HCL 50 MG TABLET PO SCH (08:22)
[2018-08-18] MEDS: MULTIVITAMINS WITH MINERALS, THERAPEUTIC TABLET PO SCH (08:22)
[2018-08-18 08:32] VITALS: BP 119/84
[2018-08-18 12:40] VITALS: BP 118/87
[2018-08-18 16:27] VITALS: BP 114/75
[2018-08-18] MEDS: CIPROFLOXACIN HCL 0.2%/HYDROCORT 1% 10 ML OTIC SUSPENSION AU SCH (16:49)
[2018-08-18] MEDS ORDERED: CIPROFLOXACIN HCL 0.3% 2.5 ML OPHTHALMIC SOLUTION AU SCH (17:00)
[2018-08-18] MEDS: OLANZapine 5 MG RAPDIS TABLET PO SCH (20:44)
[2018-08-19 01:15] VITALS: BP 130/87
[2018-08-19] MEDS: IBUPROFEN 400 MG TABLET PO PRN (01:20)
[2018-08-19] MEDS: CIPROFLOXACIN HCL 0.2%/HYDROCORT 1% 10 ML OTIC SUSPENSION AU SCH ×3 (08:28→17:02)
[2018-08-19] MEDS: MULTIVITAMINS WITH MINERALS, THERAPEUTIC TABLET PO SCH (08:28)
[2018-08-19] MEDS: NALTREXONE HCL 50 MG TABLET PO SCH (08:28)
[2018-08-19 16:03] VITALS: BP 117/85
[2018-08-19] MEDS: OLANZapine 5 MG RAPDIS TABLET PO SCH (20:35)
[2018-08-20] MEDS: ACETAMINOPHEN 325 MG TABLET PO PRN ×2 (04:05→16:46)
[2018-08-20] MEDS: NALTREXONE HCL 50 MG TABLET PO SCH (08:23)
[2018-08-20] MEDS: CIPROFLOXACIN HCL 0.2%/HYDROCORT 1% 10 ML OTIC SUSPENSION AU SCH ×3 (08:23→16:32)
[2018-08-20] MEDS: MULTIVITAMINS WITH MINERALS, THERAPEUTIC TABLET PO SCH (08:23)
[2018-08-20] MEDS: DOCUSATE SODIUM 100 MG CAPSULE PO PRN (13:55)
[2018-08-20 16:07] VITALS: BP 135/88
[2018-08-20] MEDS: OLANZapine 5 MG RAPDIS TABLET PO SCH (20:30)
[2018-08-21] MEDS: CIPROFLOXACIN HCL 0.2%/HYDROCORT 1% 10 ML OTIC SUSPENSION AU SCH ×3 (08:12→17:01)
[2018-08-21] MEDS: MULTIVITAMINS WITH MINERALS, THERAPEUTIC TABLET PO SCH (08:12)
[2018-08-21] MEDS: NALTREXONE HCL 50 MG TABLET PO SCH (08:12)
[2018-08-21 16:09] VITALS: BP 103/80
[2018-08-21] MEDS: OLANZapine 5 MG RAPDIS TABLET PO SCH (20:37)
[2018-08-22] MEDS: NALTREXONE HCL 50 MG TABLET PO SCH (08:14)
[2018-08-22] MEDS: CIPROFLOXACIN HCL 0.2%/HYDROCORT 1% 10 ML OTIC SUSPENSION AU SCH ×3 (08:15→16:43)
[2018-08-22] MEDS: MULTIVITAMINS WITH MINERALS, THERAPEUTIC TABLET PO SCH (08:15)
[2018-08-22] MEDS: OLANZapine 5 MG RAPDIS TABLET PO SCH (20:07)
[2018-08-23 05:21] VITALS: BP 140/87
[2018-08-23] MEDS: MULTIVITAMINS WITH MINERALS, THERAPEUTIC TABLET PO SCH (08:48)
[2018-08-23] MEDS: NALTREXONE HCL 50 MG TABLET PO SCH (08:48)
[2018-08-23] MEDS: CIPROFLOXACIN HCL 0.2%/HYDROCORT 1% 10 ML OTIC SUSPENSION AU SCH ×3 (08:52→17:19)
[2018-08-23 16:09] VITALS: BP 132/88
[2018-08-23] MEDS: ACETAMINOPHEN 325 MG TABLET PO PRN (16:17)
[2018-08-23] MEDS: OLANZapine 5 MG RAPDIS TABLET PO SCH (20:15)
[2018-08-24 00:19] VITALS: BP 113/65
[2018-08-24] MEDS: ACETAMINOPHEN 325 MG TABLET PO PRN (00:22)
[2018-08-24] MEDS: MULTIVITAMINS WITH MINERALS, THERAPEUTIC TABLET PO SCH (08:15)
[2018-08-24] MEDS: NALTREXONE HCL 50 MG TABLET PO SCH (08:15)
[2018-08-24] MEDS: CIPROFLOXACIN HCL 0.2%/HYDROCORT 1% 10 ML OTIC SUSPENSION AU SCH ×3 (08:16→17:26)
[2018-08-24 16:10] VITALS: BP 112/81
[2018-08-24] MEDS: OLANZapine 5 MG RAPDIS TABLET PO SCH (20:10)
[2018-08-25 00:20] VITALS: BP 139/87
[2018-08-25] MEDS: NALTREXONE HCL 50 MG TABLET PO SCH (08:35)
[2018-08-25] MEDS: CIPROFLOXACIN HCL 0.2%/HYDROCORT 1% 10 ML OTIC SUSPENSION AU SCH ×3 (08:35→17:16)
[2018-08-25] MEDS: MULTIVITAMINS WITH MINERALS, THERAPEUTIC TABLET PO SCH (08:35)
[2018-08-25] MEDS: OLANZapine 5 MG RAPDIS TABLET PO SCH (20:33)
[2018-08-26] MEDS: NALTREXONE HCL 50 MG TABLET PO SCH (08:58)
[2018-08-26] MEDS: MULTIVITAMINS WITH MINERALS, THERAPEUTIC TABLET PO SCH (08:58)
[2018-08-26] MEDS: CIPROFLOXACIN HCL 0.2%/HYDROCORT 1% 10 ML OTIC SUSPENSION AU SCH ×3 (08:59→17:08)
[2018-08-26] MEDS ORDERED: TUBERCULIN, PURIFIED PROTEIN DERIVATIVE 5 TU/0.1 ML SYRINGE ID ONE (09:30)
[2018-08-26 16:14] VITALS: BP 112/75
[2018-08-26] MEDS: OLANZapine 5 MG RAPDIS TABLET PO SCH (20:04)
[2018-08-27] MEDS: NALTREXONE HCL 50 MG TABLET PO SCH (09:00)
[2018-08-27] MEDS: MULTIVITAMINS WITH MINERALS, THERAPEUTIC TABLET PO SCH (09:00)
[2018-08-27 12:13] VITALS: BP 100/68
[2018-08-27 16:10] VITALS: BP 120/83
[2018-08-27] MEDS: OLANZapine 5 MG RAPDIS TABLET PO SCH (20:17)
[2018-08-28] MEDS: MULTIVITAMINS WITH MINERALS, THERAPEUTIC TABLET PO SCH (09:29)
[2018-08-28] MEDS: NALTREXONE HCL 50 MG TABLET PO SCH (09:29)
[2018-08-28] MEDS: OLANZapine 5 MG RAPDIS TABLET PO SCH (20:35)
[2018-08-29 05:09] VITALS: BP 109/90
[2018-08-29] MEDS: NALTREXONE HCL 50 MG TABLET PO SCH (08:49)
[2018-08-29] MEDS: MULTIVITAMINS WITH MINERALS, THERAPEUTIC TABLET PO SCH (08:49)
[2018-08-29 16:35] VITALS: BP 104/75
[2018-08-29] MEDS: OLANZapine 5 MG RAPDIS TABLET PO SCH (20:10)
[2018-08-30] MEDS: MULTIVITAMINS WITH MINERALS, THERAPEUTIC TABLET PO SCH (08:23)
[2018-08-30] MEDS: NALTREXONE HCL 50 MG TABLET PO SCH (08:23)
[2018-08-30 08:26] VITALS: BP 106/62
[2018-08-30] MEDS: OLANZapine 5 MG RAPDIS TABLET PO SCH (20:04)
[2018-08-31] MEDS: MULTIVITAMINS WITH MINERALS, THERAPEUTIC TABLET PO SCH (09:00)
[2018-08-31] MEDS: NALTREXONE HCL 50 MG TABLET PO SCH (09:00)
[2018-08-31 16:02] VITALS: BP 118/75
[2018-08-31] MEDS: OLANZapine 5 MG RAPDIS TABLET PO SCH (20:17)
[2018-09-01 06:22] VITALS: BP 117/76
[2018-09-01] MEDS: MULTIVITAMINS WITH MINERALS, THERAPEUTIC TABLET PO SCH (09:03)
[2018-09-01] MEDS: NALTREXONE HCL 50 MG TABLET PO SCH (09:03)
[2018-09-01 16:21] VITALS: BP 135/86
[2018-09-01] MEDS: OLANZapine 5 MG RAPDIS TABLET PO SCH (20:07)
[2018-09-02] MEDS: MULTIVITAMINS WITH MINERALS, THERAPEUTIC TABLET PO SCH (08:13)
[2018-09-02] MEDS: NALTREXONE HCL 50 MG TABLET PO SCH (08:13)
[2018-09-02 16:45] VITALS: BP 128/83
[2018-09-02] MEDS: OLANZapine 5 MG RAPDIS TABLET PO SCH (20:18)
[2018-09-03] MEDS: NALTREXONE HCL 50 MG TABLET PO SCH (08:52)
[2018-09-03] MEDS: MULTIVITAMINS WITH MINERALS, THERAPEUTIC TABLET PO SCH (08:53)
[2018-09-03] MEDS: DOCUSATE SODIUM 100 MG CAPSULE PO PRN (15:22)
[2018-09-03 17:19] VITALS: BP 114/64
[2018-09-03] MEDS: OLANZapine 5 MG RAPDIS TABLET PO SCH (20:08)
[2018-09-04] MEDS: MAG HYDROX/AL HYDROX/SIMETH ES 30 ML SUSPENSION UDCUP PO PRN (04:11)
[2018-09-04 04:14] VITALS: BP 129/86
[2018-09-04] MEDS: NALTREXONE HCL 50 MG TABLET PO SCH ×2 (09:00→10:17)
[2018-09-04] MEDS: MULTIVITAMINS WITH MINERALS, THERAPEUTIC TABLET PO SCH ×2 (09:00→10:17)
[2018-09-04] MEDS: OLANZapine 5 MG RAPDIS TABLET PO SCH (20:29)
[2018-09-04] MEDS: ACETAMINOPHEN 325 MG TABLET PO PRN (22:09)
[2018-09-04 22:10] VITALS: BP 128/82
[2018-09-05] MEDS: NALTREXONE HCL 50 MG TABLET PO SCH (09:48)
[2018-09-05] MEDS: MULTIVITAMINS WITH MINERALS, THERAPEUTIC TABLET PO SCH (09:48)
[2018-09-05] MEDS: MAG HYDROX/AL HYDROX/SIMETH ES 30 ML SUSPENSION UDCUP PO PRN (09:50)
[2018-09-05 16:05] VITALS: BP 144/36
[2018-09-05] MEDS: OLANZapine 5 MG RAPDIS TABLET PO SCH (20:06)
[2018-09-06] MEDS: MULTIVITAMINS WITH MINERALS, THERAPEUTIC TABLET PO SCH (09:25)
[2018-09-06] MEDS: NALTREXONE HCL 50 MG TABLET PO SCH (09:25)
[2018-09-06 16:21] VITALS: BP 100/66
[2018-09-06] MEDS: OLANZapine 5 MG RAPDIS TABLET PO SCH (20:23)
[2018-09-07] MEDS: MAG HYDROX/AL HYDROX/SIMETH ES 30 ML SUSPENSION UDCUP PO PRN (01:41)
[2018-09-07 01:47] VITALS: BP 145/89
[2018-09-07] MEDS: MAGNESIUM HYDROXIDE SUSPENSION 30 ML UDCUP PO PRN (05:46)
[2018-09-07] MEDS: NALTREXONE HCL 50 MG TABLET PO SCH (09:04)
[2018-09-07] MEDS: MULTIVITAMINS WITH MINERALS, THERAPEUTIC TABLET PO SCH (09:04)
[2018-09-07 16:13] VITALS: BP 123/77
[2018-09-07] MEDS: OLANZapine 5 MG RAPDIS TABLET PO SCH (20:05)
[2018-09-08] MEDS ORDERED: ARIPiprazole ER SUSPENSION 400 MG VIAL IM SCH (09:00)
[2018-09-08] MEDS: MULTIVITAMINS WITH MINERALS, THERAPEUTIC TABLET PO SCH (09:49)
[2018-09-08] MEDS: NALTREXONE HCL 50 MG TABLET PO SCH (09:49)
[2018-09-08 16:19] VITALS: BP 124/87
[2018-09-08] MEDS: OLANZapine 5 MG RAPDIS TABLET PO SCH (20:12)
[2018-09-09 01:15] VITALS: BP 130/78
[2018-09-09] MEDS: NALTREXONE HCL 50 MG TABLET PO SCH (08:29)
[2018-09-09] MEDS: MULTIVITAMINS WITH MINERALS, THERAPEUTIC TABLET PO SCH (08:29)
[2018-09-09 16:10] VITALS: BP 125/69
[2018-09-09] MEDS: OLANZapine 5 MG RAPDIS TABLET PO SCH (21:11)
[2018-09-10 08:08] LABS: BASOPHILS % (AUTO) 0.8 % (0.0-2.0); EOSINOPHILS % (AUTO) 3.7 % (1.0-6.0); HEMATOCRIT 46.3 % (41-53); HEMOGLOBIN 15.6 g/dL (13.5-17.5); LYMPHOCYTES # (AUTO) 3.9 K/uL (1.0-4.8); LYMPHOCYTES % (AUTO) 38.3 % (22.0-44.0); MEAN CORPUSCULAR HEMOGLOBIN 31.2 pg (26.0-34.0); MEAN CORPUSCULAR HGB CONC 33.7 G/dL (31.0-37.0); MEAN CORPUSCULAR VOLUME 93 fL (80-100); MONOCYTES # (AUTO) 0.9 K/uL (0.1-1.0); MONOCYTES % (AUTO) 8.8 % (2.0-9.0); NEUTROPHILS # (AUTO) 4.9 K/uL (1.8-7.7); NEUTROPHILS % (AUTO) 48.4 % (40.0-70.0); PLATELET COUNT (AUTO) 201 K/uL (150-450); RED BLOOD CELL COUNT(AUTO) 5.01 MIL/uL (4.50-5.90); RED CELL DISTRIBUTION WIDTH 13.2 % (11.5-14.5)
[2018-09-10 08:21] LABS: HEMOGLOBIN A1C 5.2 % (4.5-6.2)
[2018-09-10] MEDS: NALTREXONE HCL 50 MG TABLET PO SCH (08:28)
[2018-09-10] MEDS: MULTIVITAMINS WITH MINERALS, THERAPEUTIC TABLET PO SCH (08:28)
[2018-09-10 08:33] VITALS: BP 101/58
[2018-09-10 08:39] LABS: ALANINE AMINOTRANSFERASE 67 U/L (12-78); ALBUMIN 3.3 g/dL (3.4-5.0); ALKALINE PHOSPHATASE 82 U/L (46-116); ANION GAP 12 mmol/L (8-16); ASPARTATE AMINOTRANSFERASE 31 U/L (15-37); BILIRUBIN,TOTAL 0.3 mg/dL (0.1-1.0); CALCIUM, TOTAL 8.8 mg/dL (8.8-10.5); CARBON DIOXIDE 26 mmol/L (22-29); CHLORIDE 100 mmol/L (98-107); CREATININE 0.93 mg/dL (0.60-1.30); GLOMERULAR FILTR. RATE CALC > 60 mL/min (>60); GLUCOSE,RANDOM 92 mg/dL (70-110); POTASSIUM 3.9 mmol/L (3.5-5.1); SODIUM SERUM 138 mmol/L (136-145); TOTAL PROTEIN, SERUM 6.8 g/dL (6.4-8.2); UREA NITROGEN, BLOOD 13 mg/dL (7-18)
[2018-09-10 16:00] VITALS: BP 108/65
[2018-09-10] MEDS: OLANZapine 5 MG RAPDIS TABLET PO SCH (20:11)
[2018-09-11] MEDS: NALTREXONE HCL 50 MG TABLET PO SCH (08:58)
[2018-09-11] MEDS: MULTIVITAMINS WITH MINERALS, THERAPEUTIC TABLET PO SCH (08:58)
[2018-09-11 16:24] VITALS: BP 121/74
[2018-09-11] MEDS: OLANZapine 5 MG RAPDIS TABLET PO SCH (20:39)
[2018-09-12] MEDS: MULTIVITAMINS WITH MINERALS, THERAPEUTIC TABLET PO SCH (08:10)
[2018-09-12] MEDS: NALTREXONE HCL 50 MG TABLET PO SCH (08:10)
[2018-09-12] MEDS: MAG HYDROX/AL HYDROX/SIMETH ES 30 ML SUSPENSION UDCUP PO PRN (09:56)
[2018-09-12 16:20] VITALS: BP 140/97
[2018-09-12 17:00] VITALS: BP 120/82
[2018-09-12] MEDS: OLANZapine 5 MG RAPDIS TABLET PO SCH (20:12)
[2018-09-13 00:08] VITALS: BP 137/87
[2018-09-13] MEDS: MULTIVITAMINS WITH MINERALS, THERAPEUTIC TABLET PO SCH (08:15)
[2018-09-13] MEDS: NALTREXONE HCL 50 MG TABLET PO SCH (08:15)
[2018-09-13] MEDS: MAG HYDROX/AL HYDROX/SIMETH ES 30 ML SUSPENSION UDCUP PO PRN (09:15)
[2018-09-13 16:23] VITALS: BP 134/84
[2018-09-13] MEDS: OLANZapine 5 MG RAPDIS TABLET PO SCH (20:25)
[2018-09-14 06:06] VITALS: BP 130/81
[2018-09-14] MEDS: MULTIVITAMINS WITH MINERALS, THERAPEUTIC TABLET PO SCH (08:23)
[2018-09-14] MEDS: NALTREXONE HCL 50 MG TABLET PO SCH (08:23)
[2018-09-14] MEDS: OLANZapine 5 MG RAPDIS TABLET PO SCH (20:08)
[2018-09-15 01:00] VITALS: BP 133/89
[2018-09-15] MEDS: MAG HYDROX/AL HYDROX/SIMETH ES 30 ML SUSPENSION UDCUP PO PRN (04:27)
[2018-09-15] MEDS: MULTIVITAMINS WITH MINERALS, THERAPEUTIC TABLET PO SCH (09:08)
[2018-09-15] MEDS: NALTREXONE HCL 50 MG TABLET PO SCH (09:41)
[2018-09-15] MEDS: OLANZapine 5 MG RAPDIS TABLET PO SCH (20:05)
[2018-09-16] MEDS: MULTIVITAMINS WITH MINERALS, THERAPEUTIC TABLET PO SCH (08:40)
[2018-09-16] MEDS: NALTREXONE HCL 50 MG TABLET PO SCH (08:40)
[2018-09-16 16:14] VITALS: BP 121/74
[2018-09-16] MEDS: OLANZapine 5 MG RAPDIS TABLET PO SCH (20:17)
[2018-09-17 02:47] VITALS: BP 122/80
[2018-09-17] MEDS: MULTIVITAMINS WITH MINERALS, THERAPEUTIC TABLET PO SCH (08:17)
[2018-09-17] MEDS: NALTREXONE HCL 50 MG TABLET PO SCH (08:18)
[2018-09-17] MEDS: MAG HYDROX/AL HYDROX/SIMETH ES 30 ML SUSPENSION UDCUP PO PRN (09:28)
[2018-09-17] MEDS: OLANZapine 5 MG RAPDIS TABLET PO SCH (20:13)
[2018-09-18 01:54] VITALS: BP 126/99
[2018-09-18] MEDS: NALTREXONE HCL 50 MG TABLET PO SCH (08:02)
[2018-09-18] MEDS: MULTIVITAMINS WITH MINERALS, THERAPEUTIC TABLET PO SCH (08:02)
[2018-09-18 08:03] VITALS: BP 130/81
[2018-09-18 16:21] VITALS: BP 123/76
[2018-09-18] MEDS: OLANZapine 5 MG RAPDIS TABLET PO SCH (20:14)
[2018-09-18] MEDS: MAG HYDROX/AL HYDROX/SIMETH ES 30 ML SUSPENSION UDCUP PO PRN (20:20)
[2018-09-19 00:14] VITALS: BP 118/72
[2018-09-19] MEDS: NALTREXONE HCL 50 MG TABLET PO SCH (08:21)
[2018-09-19] MEDS: MULTIVITAMINS WITH MINERALS, THERAPEUTIC TABLET PO SCH (08:21)
[2018-09-19] MEDS: OLANZapine 5 MG RAPDIS TABLET PO SCH (20:11)
[2018-09-20 01:16] VITALS: BP 128/88
[2018-09-20] MEDS: NALTREXONE HCL 50 MG TABLET PO SCH (09:29)
[2018-09-20] MEDS: MULTIVITAMINS WITH MINERALS, THERAPEUTIC TABLET PO SCH (09:30)
[2018-09-20 16:12] VITALS: BP 110/89
[2018-09-20] MEDS: OLANZapine 5 MG RAPDIS TABLET PO SCH (20:09)
[2018-09-21 00:37] VITALS: BP 111/76
[2018-09-21] MEDS: MAG HYDROX/AL HYDROX/SIMETH ES 30 ML SUSPENSION UDCUP PO PRN (00:53)
[2018-09-21] MEDS: MULTIVITAMINS WITH MINERALS, THERAPEUTIC TABLET PO SCH (08:47)
[2018-09-21] MEDS: NALTREXONE HCL 50 MG TABLET PO SCH (08:47)
[2018-09-21] MEDS: OLANZapine 5 MG RAPDIS TABLET PO SCH (20:13)
[2018-09-22 00:43] VITALS: BP 122/88
[2018-09-22] MEDS: MAG HYDROX/AL HYDROX/SIMETH ES 30 ML SUSPENSION UDCUP PO PRN (02:26)
[2018-09-22 08:33] VITALS: BP 137/91
[2018-09-22] MEDS: NALTREXONE HCL 50 MG TABLET PO SCH (09:00)
[2018-09-22] MEDS: MULTIVITAMINS WITH MINERALS, THERAPEUTIC TABLET PO SCH (09:00)
[2018-09-22 16:39] VITALS: BP 103/77
[2018-09-22] MEDS: OLANZapine 5 MG RAPDIS TABLET PO SCH (20:26)
[2018-09-23] MEDS: MAG HYDROX/AL HYDROX/SIMETH ES 30 ML SUSPENSION UDCUP PO PRN (01:49)
[2018-09-23] MEDS: NALTREXONE HCL 50 MG TABLET PO SCH (09:36)
[2018-09-23] MEDS: MULTIVITAMINS WITH MINERALS, THERAPEUTIC TABLET PO SCH (09:37)
[2018-09-23] MEDS: OLANZapine 5 MG RAPDIS TABLET PO SCH (20:28)
[2018-09-24 05:19] VITALS: BP 106/69
[2018-09-24] MEDS: MULTIVITAMINS WITH MINERALS, THERAPEUTIC TABLET PO SCH (09:00)
[2018-09-24] MEDS: NALTREXONE HCL 50 MG TABLET PO SCH (09:00)
[2018-09-24] MEDS: MAG HYDROX/AL HYDROX/SIMETH ES 30 ML SUSPENSION UDCUP PO PRN ×3 (10:12→22:09)
[2018-09-24] MEDS: OLANZapine 5 MG RAPDIS TABLET PO SCH (20:21)
[2018-09-25] MEDS: MULTIVITAMINS WITH MINERALS, THERAPEUTIC TABLET PO SCH (09:25)
[2018-09-25] MEDS: THIAMINE HCL 100 MG TABLET PO SCH (09:25)
[2018-09-25] MEDS: FOLIC ACID 1 MG TABLET PO SCH (09:26)
[2018-09-25] MEDS: OMEPRAZOLE 20 MG CAPSULE PO SCH (09:26)
[2018-09-25] MEDS: NALTREXONE HCL 50 MG TABLET PO SCH (09:26)
[2018-09-25] MEDS: MAGNESIUM HYDROXIDE SUSPENSION 30 ML UDCUP PO PRN (10:38)
[2018-09-25] MEDS: OLANZapine 5 MG RAPDIS TABLET PO SCH (20:09)
[2018-09-26 05:54] VITALS: BP 103/62
[2018-09-26] MEDS: FOLIC ACID 1 MG TABLET PO SCH (08:31)
[2018-09-26] MEDS: THIAMINE HCL 100 MG TABLET PO SCH (08:31)
[2018-09-26] MEDS: OMEPRAZOLE 20 MG CAPSULE PO SCH (08:31)
[2018-09-26] MEDS: NALTREXONE HCL 50 MG TABLET PO SCH (08:31)
[2018-09-26] MEDS: MULTIVITAMINS WITH MINERALS, THERAPEUTIC TABLET PO SCH (08:31)
[2018-09-26] MEDS: OLANZapine 5 MG RAPDIS TABLET PO SCH (20:01)
[2018-09-27 06:22] VITALS: BP 106/72
[2018-09-27] MEDS: NALTREXONE HCL 50 MG TABLET PO SCH (08:33)
[2018-09-27] MEDS: THIAMINE HCL 100 MG TABLET PO SCH (08:34)
[2018-09-27] MEDS: OMEPRAZOLE 20 MG CAPSULE PO SCH (08:34)
[2018-09-27] MEDS: FOLIC ACID 1 MG TABLET PO SCH (08:34)
[2018-09-27] MEDS: MULTIVITAMINS WITH MINERALS, THERAPEUTIC TABLET PO SCH (08:40)
[2018-09-27] MEDS: OLANZapine 5 MG RAPDIS TABLET PO SCH (20:25)
[2018-09-28] MEDS: NALTREXONE HCL 50 MG TABLET PO SCH (08:15)
[2018-09-28] MEDS: OMEPRAZOLE 20 MG CAPSULE PO SCH (08:15)
[2018-09-28] MEDS: MULTIVITAMINS WITH MINERALS, THERAPEUTIC TABLET PO SCH (08:15)
[2018-09-28] MEDS: FOLIC ACID 1 MG TABLET PO SCH (08:16)
[2018-09-28] MEDS: THIAMINE HCL 100 MG TABLET PO SCH (08:16)
[2018-09-28] MEDS: OLANZapine 5 MG RAPDIS TABLET PO SCH (20:29)
[2018-09-29] MEDS: NALTREXONE HCL 50 MG TABLET PO SCH (08:47)
[2018-09-29] MEDS: OMEPRAZOLE 20 MG CAPSULE PO SCH (08:47)
[2018-09-29] MEDS: THIAMINE HCL 100 MG TABLET PO SCH (08:47)
[2018-09-29] MEDS: MULTIVITAMINS WITH MINERALS, THERAPEUTIC TABLET PO SCH (08:48)
[2018-09-29] MEDS: FOLIC ACID 1 MG TABLET PO SCH (08:48)
[2018-09-29] MEDS: OLANZapine 5 MG RAPDIS TABLET PO SCH (20:32)
[2018-09-30 02:04] VITALS: BP 133/84
[2018-09-30] MEDS: FOLIC ACID 1 MG TABLET PO SCH (08:16)
[2018-09-30] MEDS: THIAMINE HCL 100 MG TABLET PO SCH (08:16)
[2018-09-30] MEDS: MULTIVITAMINS WITH MINERALS, THERAPEUTIC TABLET PO SCH (08:16)
[2018-09-30] MEDS: OMEPRAZOLE 20 MG CAPSULE PO SCH (08:16)
[2018-09-30] MEDS: NALTREXONE HCL 50 MG TABLET PO SCH (08:17)
[2018-09-30] MEDS: OLANZapine 5 MG RAPDIS TABLET PO SCH (20:18)
[2018-10-01] MEDS: MULTIVITAMINS WITH MINERALS, THERAPEUTIC TABLET PO SCH (09:00)
[2018-10-01] MEDS: FOLIC ACID 1 MG TABLET PO SCH (09:02)
[2018-10-01] MEDS: OMEPRAZOLE 20 MG CAPSULE PO SCH (09:02)
[2018-10-01] MEDS: NALTREXONE HCL 50 MG TABLET PO SCH (09:02)
[2018-10-01] MEDS: THIAMINE HCL 100 MG TABLET PO SCH (09:03)
[2018-10-01] MEDS: OLANZapine 5 MG RAPDIS TABLET PO SCH (20:22)
[2018-10-02] MEDS: MULTIVITAMINS WITH MINERALS, THERAPEUTIC TABLET PO SCH (08:14)
[2018-10-02] MEDS: NALTREXONE HCL 50 MG TABLET PO SCH (08:15)
[2018-10-02] MEDS: FOLIC ACID 1 MG TABLET PO SCH (08:15)
[2018-10-02] MEDS: THIAMINE HCL 100 MG TABLET PO SCH (08:15)
[2018-10-02] MEDS: OMEPRAZOLE 20 MG CAPSULE PO SCH (08:15)
[2018-10-02 08:22] VITALS: BP 159/82
[2018-10-02 20:46] VITALS: BP 135/80
[2018-10-02] MEDS: OLANZapine 5 MG RAPDIS TABLET PO SCH (22:00)
[2018-10-03 03:58] VITALS: BP 137/74
[2018-10-03] MEDS: OMEPRAZOLE 20 MG CAPSULE PO SCH (08:12)
[2018-10-03] MEDS: MULTIVITAMINS WITH MINERALS, THERAPEUTIC TABLET PO SCH (08:12)
[2018-10-03] MEDS: THIAMINE HCL 100 MG TABLET PO SCH (08:12)
[2018-10-03] MEDS: FOLIC ACID 1 MG TABLET PO SCH (08:12)
[2018-10-03] MEDS: NALTREXONE HCL 50 MG TABLET PO SCH (09:03)
[2018-10-03] MEDS: NICOTINE 14 MG/24 HOUR PATCH TD PRN (09:07)
[2018-10-03] MEDS: OLANZapine 5 MG RAPDIS TABLET PO SCH (20:26)
[2018-10-04] MEDS: NALTREXONE HCL 50 MG TABLET PO SCH (08:59)
[2018-10-04] MEDS: FOLIC ACID 1 MG TABLET PO SCH (08:59)
[2018-10-04] MEDS: OMEPRAZOLE 20 MG CAPSULE PO SCH (08:59)
[2018-10-04] MEDS: MULTIVITAMINS WITH MINERALS, THERAPEUTIC TABLET PO SCH (08:59)
[2018-10-04] MEDS: THIAMINE HCL 100 MG TABLET PO SCH (08:59)
[2018-10-04 16:19] VITALS: BP 123/71
[2018-10-04] MEDS: OLANZapine 5 MG RAPDIS TABLET PO SCH (20:16)
[2018-10-05 03:44] VITALS: BP 128/72
[2018-10-05] MEDS: MULTIVITAMINS WITH MINERALS, THERAPEUTIC TABLET PO SCH (08:14)
[2018-10-05] MEDS: OMEPRAZOLE 20 MG CAPSULE PO SCH (08:14)
[2018-10-05] MEDS: FOLIC ACID 1 MG TABLET PO SCH (08:14)
[2018-10-05] MEDS: THIAMINE HCL 100 MG TABLET PO SCH (08:14)
[2018-10-05] MEDS: NALTREXONE HCL 50 MG TABLET PO SCH (08:14)
[2018-10-05 08:27] VITALS: BP 111/90
[2018-10-05 16:00] VITALS: BP 105/89
[2018-10-05] MEDS: OLANZapine 5 MG RAPDIS TABLET PO SCH (20:09)
[2018-10-06 03:12] VITALS: BP 129/90
[2018-10-06] MEDS: MULTIVITAMINS WITH MINERALS, THERAPEUTIC TABLET PO SCH (08:01)
[2018-10-06] MEDS: OMEPRAZOLE 20 MG CAPSULE PO SCH (08:01)
[2018-10-06] MEDS: THIAMINE HCL 100 MG TABLET PO SCH (08:02)
[2018-10-06] MEDS: NALTREXONE HCL 50 MG TABLET PO SCH (08:02)
[2018-10-06] MEDS: FOLIC ACID 1 MG TABLET PO SCH (08:02)
[2018-10-06] MEDS: NICOTINE 14 MG/24 HOUR PATCH TD PRN (08:23)
[2018-10-06 16:02] VITALS: BP 122/90
[2018-10-06] MEDS: OLANZapine 5 MG RAPDIS TABLET PO SCH (20:17)
[2018-10-07 06:31] VITALS: BP 112/77
[2018-10-07] MEDS: NALTREXONE HCL 50 MG TABLET PO SCH (09:25)
[2018-10-07] MEDS: FOLIC ACID 1 MG TABLET PO SCH (09:26)
[2018-10-07] MEDS: MULTIVITAMINS WITH MINERALS, THERAPEUTIC TABLET PO SCH (09:26)
[2018-10-07] MEDS: OMEPRAZOLE 20 MG CAPSULE PO SCH (09:26)
[2018-10-07] MEDS: THIAMINE HCL 100 MG TABLET PO SCH (09:26)
[2018-10-07] MEDS ORDERED: OMEP20 PO (11:10)
[2018-10-07] MEDS ORDERED: NALT50TA PO (12:48)
[2018-10-07] MEDS ORDERED: OLAN5TAB30 PO (12:48)
== END 2018-10-07 16:00 | disposition home or self-care (01) | DRG 885 ==
LOC: EMS 21:19 → B3A 07-31 09:57 → B2X 07-31 10:30 → B2S 08-11 08:52
PROVIDERS: ADMIT Psychiatry & Neurology Psychiatry; ATTEND Psychiatry & Neurology Psychiatry
DX: F25.0 Schizoaffective disorder, bipolar type (principal); F19.20 Other psychoactive substance dependence, uncomplicated; R45.851 Suicidal ideations; J44.9 Chronic obstructive pulmonary disease, unspecified; N40.0 Benign prostatic hyperplasia without lower urinary tract symptoms; R32 Unspecified urinary incontinence; E55.9 Vitamin D deficiency, unspecified; I10 Essential (primary) hypertension; K59.00 Constipation, unspecified; K21.9 Gastro-esophageal reflux disease without esophagitis; Y90.7 Blood alcohol level of 200-239 mg/100 ml; F10.229 Alcohol dependence with intoxication, unspecified; L30.9 Dermatitis, unspecified; H92.09 Otalgia, unspecified ear; F17.210 Nicotine dependence, cigarettes, uncomplicated; Z59.9 Problem related to housing and economic circumstances, unspecified; Z65.3 Problems related to other legal circumstances; Z91.19 Patient's noncompliance with other medical treatment and regimen; Z59.0 Homelessness; Z71.41 Alcohol abuse counseling and surveillance of alcoholic; Z71.6 Tobacco abuse counseling
CPT/HCPCS: 83036; 87081; 90732; 93005; G0480; J0401; Q0162

== ENCOUNTER 2020-12-23 19:47 | Inpatient (IN) | payer MEDICARE, MEDICAID ==
[~2020-12-23] VITALS: Ht 180.3 cm; Wt 78.8 kg
[~2020-12-23 19:47] MED LIST changes: -DULO20CA30 PO; +NALT50TA PO; -NALT50TA6 PO; +OLAN5TAB30 PO; -OLAN5TAB40 PO; +OMEP20 PO
[2020-12-23] MEDS ORDERED: PROMETHAZINE HCL 25 MG TABLET PO PRN (21:00)
[2020-12-23] MEDS ORDERED: ACETAMINOPHEN 325 MG TABLET PO PRN (21:00)
[2020-12-23] MEDS ORDERED: LOPERAMIDE HCL 2 MG CAPSULE PO PRN (21:00)
[2020-12-23] MEDS ORDERED: LORazepam 2 MG TABLET PO PRN (21:00)
[2020-12-23] MEDS ORDERED: ZOLPIDEM TARTRATE 10 MG TABLET PO PRN (21:00)
[2020-12-23] MEDS ORDERED: MAG HYDROX/AL HYDROX/SIMETH ES 30 ML SUSPENSION UDCUP PO PRN (21:00)
[2020-12-23 21:17] LABS: GLUCOMETER DEV NAME(LOC) POC.BV
[2020-12-24 05:51] VITALS: BP 122/88
[2020-12-24] MEDS ORDERED: PNEUMOCOCCAL VACCINE POLYVALENT 0.5 ML VIAL [PPSV23] IM. ONE (06:00)
[2020-12-24] MEDS ORDERED: LOPERAMIDE HCL 2 MG CAPSULE PO PRN (07:15)
[2020-12-24] MEDS ORDERED: ONDANSETRON HCL 4 MG TABLET PO PRN (07:15)
[2020-12-24] MEDS ORDERED: CloNIDine HCL 0.1 MG TABLET PO PRN (07:15)
[2020-12-24] MEDS ORDERED: NICOTINE 14 MG/24 HOUR PATCH TD PRN (07:15)
[2020-12-24] MEDS ORDERED: PETROLATUM,WHITE 28 GM JELLY TP PRN (07:15)
[2020-12-24] MEDS ORDERED: MAG HYDROX/AL HYDROX/SIMETH ES 30 ML SUSPENSION UDCUP PO PRN (07:15)
[2020-12-24] MEDS ORDERED: ACETAMINOPHEN 325 MG TABLET PO PRN (07:15)
[2020-12-24] MEDS ORDERED: IBUPROFEN 400 MG TABLET PO PRN (07:15)
[2020-12-24] MEDS ORDERED: GuaiFENesin/D-METHORPHAN [SUGAR-FREE] 200-20MG/10 ML SYRUP UDCUP PO PRN (07:15)
[2020-12-24] MEDS ORDERED: MAGNESIUM HYDROXIDE SUSPENSION 30 ML UDCUP PO PRN (07:15)
[2020-12-24] MEDS ORDERED: DOCUSATE SODIUM 100 MG CAPSULE PO PRN (07:15)
[2020-12-24] MEDS ORDERED: ALBUTEROL SULFATE HFA 90 MCG/PUFF 8 GM INHALER IH PRN (07:15)
[2020-12-24 08:45] VITALS: BP 123/87
[2020-12-24] MEDS ORDERED: LORazepam 2 MG TABLET PO PRN (11:15)
[2020-12-24] MEDS ORDERED: CYANOCOBALAMIN 1,000 MCG/ML VIAL IM ONE (11:15)
[2020-12-24 16:27] VITALS: BP 132/64
[2020-12-24] MEDS: THIAMINE 100 MG TABLET PO SCH (16:44)
[2020-12-24] MEDS: OLANZapine 5 MG RAPDIS TABLET PO SCH (20:34)
[2020-12-25] VITALS (7 sets, daily range): BP systolic 103–128; BP diastolic 66–85
[2020-12-25] MEDS ORDERED: LORazepam 2 MG TABLET PO PRN (07:00)
[2020-12-25 07:15] LABS: BASOPHILS % (AUTO) 0.9 % (0.0-2.0); EOSINOPHILS % (AUTO) 2.3 % (1.0-6.0); HEMATOCRIT 50.5 % (41-53); LYMPHOCYTES # (AUTO) 2.7 K/uL (1.0-4.8); LYMPHOCYTES % (AUTO) 32.9 % (22.0-44.0); MEAN CORPUSCULAR HGB CONC 33.6 G/dL (31.0-37.0); MEAN CORPUSCULAR VOLUME 95 fL (80-100); MONOCYTES # (AUTO) 0.6 K/uL (0.1-1.0); MONOCYTES % (AUTO) 7.1 % (2.0-9.0); NEUTROPHILS # (AUTO) 4.7 K/uL (1.8-7.7); NEUTROPHILS % (AUTO) 56.8 % (40.0-70.0); PLATELET COUNT (AUTO) 176 K/uL (150-450); RED CELL DISTRIBUTION WIDTH 14.2 % (11.5-14.5)
[2020-12-25 07:28] LABS: HEMOGLOBIN A1C 5.3 % (3.8-5.6)
[2020-12-25 07:36] LABS: ALANINE AMINOTRANSFERASE 22 U/L (12-78); ALBUMIN 3.3 g/dL (3.4-5.0); ALKALINE PHOSPHATASE 62 U/L (46-116); ANION GAP 7 mmol/L (8-16); ASPARTATE AMINOTRANSFERASE 15 U/L (15-37); BILIRUBIN,TOTAL 0.4 mg/dL (0.1-1.0); CALCIUM, TOTAL 8.9 mg/dL (8.8-10.5); CARBON DIOXIDE 28 mmol/L (22-29); CHLORIDE 106 mmol/L (98-107); CHOLESTEROL 198 mg/dL (131-200); CREATININE 0.84 mg/dL (0.60-1.30); FREE T4 (FREE THYROXINE) 1.02 ng/dL (0.76-1.46); GLOMERULAR FILTR. RATE CALC > 60 mL/min (>60); GLUCOSE,RANDOM 89 mg/dL (70-110); HDL CHOLESTEROL 49 mg/dL (40-60); LDL CHOL (CALC.) 105 mg/dL (0-130); POTASSIUM 3.7 mmol/L (3.5-5.1); SODIUM SERUM 141 mmol/L (136-145); TRIGLYCERIDES 221 mg/dL (15-150); UREA NITROGEN, BLOOD 13 mg/dL (7-18)
[2020-12-25] MEDS: THIAMINE 100 MG TABLET PO SCH ×2 (09:21→16:34)
[2020-12-25] MEDS: MULTIVITAMINS WITH MINERALS, THERAPEUTIC TABLET PO SCH (09:21)
[2020-12-25] MEDS: FOLIC ACID 1 MG TABLET PO SCH (09:21)
[2020-12-25] MEDS: LORazepam 2 MG TABLET PO SCH ×4 (09:22→20:27)
[2020-12-25] MEDS: OLANZapine 5 MG RAPDIS TABLET PO SCH (20:27)
[2020-12-26 06:38] VITALS: BP 121/94
[2020-12-26 06:42] VITALS: BP 121/94
[2020-12-26 08:30] VITALS: BP 114/68
[2020-12-26 08:32] VITALS: BP 114/68
[2020-12-26] MEDS: MULTIVITAMINS WITH MINERALS, THERAPEUTIC TABLET PO SCH (09:16)
[2020-12-26] MEDS: THIAMINE 100 MG TABLET PO SCH ×2 (09:16→17:17)
[2020-12-26] MEDS: FOLIC ACID 1 MG TABLET PO SCH (09:16)
[2020-12-26] MEDS: LORazepam 2 MG TABLET PO SCH ×4 (09:16→20:34)
[2020-12-26 17:26] VITALS: BP 132/61
[2020-12-26 17:27] VITALS: BP 132/61
[2020-12-26] MEDS: OLANZapine 5 MG RAPDIS TABLET PO SCH (20:35)
[2020-12-27 00:33] VITALS: BP 129/88
[2020-12-27] MEDS ORDERED: LORazepam 1 MG TABLET PO PRN (07:00)
[2020-12-27 08:24] VITALS: BP 130/86
[2020-12-27] MEDS: MULTIVITAMINS WITH MINERALS, THERAPEUTIC TABLET PO SCH (08:53)
[2020-12-27] MEDS: FOLIC ACID 1 MG TABLET PO SCH (08:53)
[2020-12-27] MEDS: THIAMINE 100 MG TABLET PO SCH (08:54)
[2020-12-27] MEDS: LORazepam 1 MG TABLET PO SCH ×2 (08:54→13:04)
[2020-12-27] MEDS ORDERED: OMEGA-3/DHA/EPA/FISH OIL 1,000 MG CAPSULE PO SCH (09:00)
[2020-12-27 14:57] VITALS: BP 128/76
[2020-12-27 16:18] VITALS: BP 143/71
[2020-12-27] MEDS ORDERED: OLAN5TAB94 PO (16:28)
[2020-12-28] MEDS ORDERED: LORazepam 1 MG TABLET PO PRN (07:00)
== END 2020-12-27 17:30 | disposition home or self-care (01) | DRG 885 ==
LOC: B2X 22:17
PROVIDERS: ADMIT Psychiatry & Neurology Psychiatry; ATTEND Psychiatry & Neurology Psychiatry
DX: F25.9 Schizoaffective disorder, unspecified (principal); E78.5 Hyperlipidemia, unspecified; F10.10 Alcohol abuse, uncomplicated; G40.909 Epilepsy, unspecified, not intractable, without status epilepticus; I10 Essential (primary) hypertension; J44.9 Chronic obstructive pulmonary disease, unspecified; K21.9 Gastro-esophageal reflux disease without esophagitis; Z20.822 Contact with and (suspected) exposure to COVID-19; Z55.9 Problems related to education and literacy, unspecified; Z59.9 Problem related to housing and economic circumstances, unspecified; Z65.3 Problems related to other legal circumstances; Z91.14 Patient's other noncompliance with medication regimen
CPT/HCPCS: 80053; 80061; 83036; 84439; 84443; 85025; 87081; G0480; J3420

== ENCOUNTER 2021-05-08 08:46 | Emergency (ER) | payer MEDICARE, OTHER ==
[~2021-05-08] VITALS: Ht 180.3 cm; Wt 81.1 kg
[~2021-05-08 08:46] MED LIST changes: -NALT50TA PO; -OMEP20 PO
[2021-05-08 11:48] VITALS: BP 134/79
== END 2021-05-08 15:08 | disposition home or self-care (01) ==
LOC: EDBD → EDUNIT# 08:46 → EMS 09:11
DX: M25.511 Pain in right shoulder (principal); F31.9 Bipolar disorder, unspecified; F20.9 Schizophrenia, unspecified; J44.9 Chronic obstructive pulmonary disease, unspecified; K21.9 Gastro-esophageal reflux disease without esophagitis; F17.210 Nicotine dependence, cigarettes, uncomplicated; W18.39XA Other fall on same level, initial encounter; Y93.89 Activity, other specified; Y92.89 Other specified places as the place of occurrence of the external cause; Y99.8 Other external cause status
CPT/HCPCS: 82962; 99283

== ENCOUNTER 2021-05-09 15:17 | Inpatient (IN) | payer MEDICARE, MEDICAID ==
[~2021-05-09] VITALS: Ht 180.3 cm; Wt 65.8 kg
[2021-05-09] MEDS ORDERED: ACETAMINOPHEN 500 MG TABLET PO ONE (19:30)
[2021-05-09 19:42] LABS: BASOPHILS % (AUTO) 0.5 % (0.0-2.0); EOSINOPHILS % (AUTO) 0.1 % (1.0-6.0); HEMATOCRIT 41.9 % (41-53); HEMOGLOBIN 14.4 g/dL (13.5-17.5); LYMPHOCYTES # (AUTO) 2.4 K/uL (1.0-4.8); LYMPHOCYTES % (AUTO) 20.8 % (22.0-44.0); MEAN CORPUSCULAR HEMOGLOBIN 31.5 pg (26.0-34.0); MEAN CORPUSCULAR HGB CONC 34.5 G/dL (31.0-37.0); MEAN CORPUSCULAR VOLUME 91 fL (80-100); MONOCYTES # (AUTO) 0.7 K/uL (0.1-1.0); MONOCYTES % (AUTO) 5.9 % (2.0-9.0); NEUTROPHILS # (AUTO) 8.3 K/uL (1.8-7.7); NEUTROPHILS % (AUTO) 72.7 % (40.0-70.0); PLATELET COUNT (AUTO) 204 K/uL (150-450); RED BLOOD CELL COUNT(AUTO) 4.58 MIL/uL (4.50-5.90); RED CELL DISTRIBUTION WIDTH 14.2 % (11.5-14.5)
[2021-05-09 19:56] LABS: ALANINE AMINOTRANSFERASE 84 U/L (12-78); ALKALINE PHOSPHATASE 81 U/L (46-116); ANION GAP 9 mmol/L (8-16); ASPARTATE AMINOTRANSFERASE 328 U/L (15-37); BILIRUBIN,TOTAL 0.5 mg/dL (0.1-1.0); CALCIUM, TOTAL 8.5 mg/dL (8.8-10.5); CARBON DIOXIDE 28 mmol/L (22-29); CHLORIDE 97 mmol/L (98-107); CREATININE 0.89 mg/dL (0.60-1.30); GLOMERULAR FILTR. RATE CALC > 60 mL/min (>60); GLUCOSE,RANDOM 107 mg/dL (70-110); SODIUM SERUM 134 mmol/L (136-145); TOTAL PROTEIN, SERUM 6.8 g/dL (6.4-8.2); UREA NITROGEN, BLOOD 8 mg/dL (7-18)
[2021-05-09 19:57] LABS: POTASSIUM 2.9 mmol/L (3.5-5.1)
[2021-05-09] MEDS ORDERED: POTASSIUM CHLORIDE 20 MEQ ER TABLET PO ONE (20:00)
[2021-05-10 01:56] LABS: COVID AG,FIA SOURCE NASAL SWAB
[2021-05-10 02:05] LABS: AMPHET/METH SCREEN,URINE NEGATIVE (NEGATIVE); BARBITURATE SCREEN, URINE NEGATIVE (NEGATIVE); BENZODIAZEPINES SCREEN,URINE NEGATIVE (NEGATIVE)
[2021-05-10 02:06] LABS: CANNABINOID SCREEN,URINE NEGATIVE (NEGATIVE); COCAINE SCREEN,URINE NEGATIVE (NEGATIVE); METHADONE SCREEN, URINE NEGATIVE (NEGATIVE); OPIATE SCREEN,URINE NEGATIVE (NEGATIVE)
[2021-05-10 02:12] LABS: PHENCYCLIDINE SCREEN,URINE NEGATIVE (NEGATIVE)
[2021-05-10] MEDS ORDERED: ACETAMINOPHEN 325 MG TABLET ONE (08:10)
[2021-05-10 09:30] VITALS: BP 115/76
[2021-05-10] MEDS ORDERED: HALOPERIDOL 5 MG TABLET PO PRN (10:15)
[2021-05-10] MEDS: OLANZapine 5 MG TABLET PO SCH (14:05)
[2021-05-10] MEDS ORDERED: PNEUMOCOCCAL VACCINE POLYVALENT 0.5 ML VIAL [PPSV23] IM. ONE (16:00)
[2021-05-10] MEDS ORDERED: INFLUENZA VIRUS VACCINE QVS 2021-22 (6MO+)/PF 60 MCG/0.5 ML SYRINGE IM. ONE (16:00)
[2021-05-10 16:05] VITALS: BP 136/86
[2021-05-10] MEDS ORDERED: NICOTINE 14 MG/24 HOUR PATCH TD PRN (18:30)
[2021-05-10] MEDS ORDERED: DOCUSATE SODIUM 100 MG CAPSULE PO PRN (18:30)
[2021-05-10] MEDS ORDERED: IBUPROFEN 400 MG TABLET PO PRN (18:30)
[2021-05-10] MEDS ORDERED: ONDANSETRON HCL 4 MG TABLET PO PRN (18:30)
[2021-05-10] MEDS ORDERED: LOPERAMIDE HCL 2 MG CAPSULE PO PRN (18:30)
[2021-05-10] MEDS ORDERED: CloNIDine HCL 0.1 MG TABLET PO PRN (18:30)
[2021-05-10] MEDS ORDERED: MAGNESIUM HYDROXIDE SUSPENSION 30 ML UDCUP PO PRN (18:30)
[2021-05-10] MEDS ORDERED: PETROLATUM,WHITE 28 GM JELLY TP PRN (18:30)
[2021-05-10] MEDS ORDERED: ALBUTEROL SULFATE HFA 90 MCG/PUFF 8 GM INHALER IH PRN (18:30)
[2021-05-10] MEDS ORDERED: GuaiFENesin/D-METHORPHAN [SUGAR-FREE] 200-20MG/10 ML SYRUP UDCUP PO PRN (18:30)
[2021-05-10] MEDS ORDERED: POTASSIUM CHLORIDE 20 MEQ ER TABLET PO ONE (18:30)
[2021-05-10] MEDS: OLANZapine 10 MG TABLET PO SCH (20:42)
[2021-05-11 01:06] VITALS: BP 132/84
[2021-05-11] MEDS: OLANZapine 5 MG TABLET PO SCH (08:17)
[2021-05-11 08:34] VITALS: BP 119/75
[2021-05-11] MEDS: ACETAMINOPHEN 325 MG TABLET PO PRN (08:34)
[2021-05-11 09:02] VITALS: BP 116/73
[2021-05-11 09:34] VITALS: BP 116/72
[2021-05-11] MEDS ORDERED: INFLUENZA VIRUS VACCINE QVS 2021-22 (6MO+)/PF 60 MCG/0.5 ML SYRINGE IM. ONE (15:30)
[2021-05-11] MEDS: OLANZapine 10 MG TABLET PO SCH (20:48)
[2021-05-12 00:05] VITALS: BP 111/62
[2021-05-12] MEDS: OLANZapine 5 MG TABLET PO SCH (08:36)
[2021-05-12 09:00] VITALS: BP 129/53
[2021-05-12] MEDS: OLANZapine 10 MG TABLET PO SCH (20:06)
[2021-05-13 00:20] VITALS: BP 128/68
[2021-05-13 08:22] VITALS: BP 132/82
[2021-05-13 08:24] VITALS: BP 109/32
[2021-05-13] MEDS: OLANZapine 5 MG TABLET PO SCH (08:30)
[2021-05-13] MEDS: ACETAMINOPHEN 325 MG TABLET PO PRN (15:38)
[2021-05-13] MEDS: OLANZapine 10 MG TABLET PO SCH (20:27)
[2021-05-14] MEDS: OLANZapine 5 MG TABLET PO SCH (08:40)
[2021-05-14 16:19] VITALS: BP 109/67
[2021-05-14] MEDS: OLANZapine 10 MG TABLET PO SCH (20:48)
[2021-05-15] MEDS: ACETAMINOPHEN 325 MG TABLET PO PRN (08:49)
[2021-05-15] MEDS: OLANZapine 5 MG TABLET PO SCH (08:49)
[2021-05-15 09:23] VITALS: BP 123/54
[2021-05-15] MEDS: OLANZapine 10 MG TABLET PO SCH (20:32)
[2021-05-16] MEDS: OLANZapine 5 MG TABLET PO SCH (08:52)
[2021-05-16 16:05] VITALS: BP 113/73
[2021-05-16] MEDS: LORazepam 2 MG TABLET PO PRN (18:22)
[2021-05-16] MEDS: OLANZapine 10 MG TABLET PO SCH (20:45)
[2021-05-17 01:00] VITALS: BP 117/75
[2021-05-17 07:46] LABS: GLUCOMETER DEV NAME(LOC) POC.BV
[2021-05-17] MEDS: OLANZapine 5 MG TABLET PO SCH (08:24)
[2021-05-17] MEDS: OLANZapine 10 MG TABLET PO SCH (20:09)
[2021-05-18] MEDS: OLANZapine 5 MG TABLET PO SCH (08:07)
[2021-05-18 16:11] VITALS: BP 133/77
[2021-05-18] MEDS: OLANZapine 10 MG TABLET PO SCH (20:04)
[2021-05-19] MEDS: OLANZapine 5 MG TABLET PO SCH (08:32)
[2021-05-19] MEDS: OLANZapine 10 MG TABLET PO SCH (19:58)
[2021-05-19] MEDS: ACETAMINOPHEN 325 MG TABLET PO PRN (19:59)
[2021-05-20 08:08] VITALS: BP 115/82
[2021-05-20] MEDS: OLANZapine 5 MG TABLET PO SCH (08:10)
[2021-05-20] MEDS: OLANZapine 10 MG TABLET PO SCH (20:11)
[2021-05-21] MEDS: OLANZapine 5 MG TABLET PO SCH (08:10)
[2021-05-21] MEDS: ACETAMINOPHEN 325 MG TABLET PO PRN (18:09)
[2021-05-21] MEDS: OLANZapine 10 MG TABLET PO SCH (20:04)
[2021-05-22 06:14] VITALS: BP 110/60
[2021-05-22] MEDS: OLANZapine 5 MG TABLET PO SCH (08:50)
[2021-05-22] MEDS: OLANZapine 10 MG TABLET PO SCH (20:07)
[2021-05-23] MEDS: OLANZapine 5 MG TABLET PO SCH (08:11)
[2021-05-23 16:17] VITALS: BP 112/84
[2021-05-23] MEDS: OLANZapine 10 MG TABLET PO SCH (20:36)
[2021-05-24] MEDS: OLANZapine 5 MG TABLET PO SCH (08:43)
[2021-05-24 16:09] VITALS: BP 136/84
[2021-05-24] MEDS: OLANZapine 10 MG TABLET PO SCH (20:39)
[2021-05-25] MEDS: OLANZapine 5 MG TABLET PO SCH (09:29)
[2021-05-25] MEDS: OLANZapine 10 MG TABLET PO SCH (20:11)
[2021-05-25] MEDS: ZOLPIDEM TARTRATE 10 MG TABLET PO PRN (20:12)
[2021-05-26] MEDS: OLANZapine 5 MG TABLET PO SCH (08:48)
[2021-05-26] MEDS: OLANZapine 10 MG TABLET PO SCH (20:10)
[2021-05-27] MEDS: OLANZapine 5 MG TABLET PO SCH (08:33)
[2021-05-27] MEDS: OLANZapine 10 MG TABLET PO SCH (20:35)
[2021-05-28] MEDS: OLANZapine 5 MG TABLET PO SCH (08:41)
[2021-05-28] MEDS: OLANZapine 10 MG TABLET PO SCH (20:28)
[2021-05-29 01:06] LABS: GLUCOMETER DEV NAME(LOC) POC.BV
[2021-05-29] MEDS: OLANZapine 5 MG TABLET PO SCH (08:16)
[2021-05-29] MEDS: OLANZapine 10 MG TABLET PO SCH (20:36)
[2021-05-30] MEDS: OLANZapine 5 MG TABLET PO SCH (08:14)
[2021-05-30 09:20] VITALS: BP 132/80
[2021-05-30] MEDS: OLANZapine 10 MG TABLET PO SCH (20:28)
[2021-05-31] MEDS: OLANZapine 5 MG TABLET PO SCH (08:15)
[2021-05-31 09:17] VITALS: BP 110/63
[2021-05-31 14:41] LABS: GLUCOMETER DEV NAME(LOC) POC.BV
[2021-05-31] MEDS: OLANZapine 10 MG TABLET PO SCH (20:40)
[2021-06-01 00:36] VITALS: BP 108/64
[2021-06-01] MEDS: OLANZapine 5 MG TABLET PO SCH (08:36)
[2021-06-01] MEDS: OLANZapine 10 MG TABLET PO SCH (20:24)
[2021-06-02] MEDS: OLANZapine 5 MG TABLET PO SCH (08:06)
[2021-06-02] MEDS: MAG HYDROX/AL HYDROX/SIMETH ES 30 ML SUSPENSION UDCUP PO PRN (09:03)
[2021-06-02] MEDS: OLANZapine 10 MG TABLET PO SCH (20:37)
[2021-06-03 08:11] VITALS: BP 110/63
[2021-06-03] MEDS: OLANZapine 5 MG TABLET PO SCH (08:42)
[2021-06-03] MEDS: OLANZapine 10 MG TABLET PO SCH (20:47)
[2021-06-04 08:00] VITALS: BP 121/84
[2021-06-04] MEDS: OLANZapine 5 MG TABLET PO SCH (08:40)
[2021-06-04] MEDS: OLANZapine 10 MG TABLET PO SCH (20:35)
[2021-06-04] MEDS: LORazepam 2 MG TABLET PO PRN (20:56)
[2021-06-04] MEDS: ZOLPIDEM TARTRATE 10 MG TABLET PO PRN (20:57)
[2021-06-04] MEDS: MAG HYDROX/AL HYDROX/SIMETH ES 30 ML SUSPENSION UDCUP PO PRN (21:11)
[2021-06-05 06:49] VITALS: BP 125/86
[2021-06-05] MEDS: OLANZapine 5 MG TABLET PO SCH (07:33)
[2021-06-05 16:06] VITALS: BP 120/83
[2021-06-05] MEDS: OLANZapine 10 MG TABLET PO SCH (21:18)
[2021-06-05] MEDS: MAG HYDROX/AL HYDROX/SIMETH ES 30 ML SUSPENSION UDCUP PO PRN (21:31)
[2021-06-06] MEDS: OLANZapine 5 MG TABLET PO SCH (07:30)
[2021-06-06 08:21] VITALS: BP 110/70
[2021-06-06] MEDS: OLANZapine 10 MG TABLET PO SCH (20:42)
[2021-06-06] MEDS: MAG HYDROX/AL HYDROX/SIMETH ES 30 ML SUSPENSION UDCUP PO PRN (21:59)
[2021-06-07 00:38] VITALS: BP 118/76
[2021-06-07] MEDS: OLANZapine 5 MG TABLET PO SCH (07:20)
[2021-06-07] MEDS ORDERED: OLAN5TAB52 PO (07:52)
[2021-06-07] MEDS ORDERED: OLAN10TA74 PO (07:52)
[2021-06-07 08:08] VITALS: BP 132/94
[2021-06-07 08:11] LABS: GLUCOMETER DEV NAME(LOC) POC.BV
[2021-06-07] MEDS: MAG HYDROX/AL HYDROX/SIMETH ES 30 ML SUSPENSION UDCUP PO PRN (08:36)
== END 2021-06-07 09:00 | DRG 885 ==
LOC: EMS 15:34 → B2X 05-10 07:56 → UNDOADMIN 05-10 07:56 → B2X 05-11 04:53
PROVIDERS: ADMIT Psychiatry & Neurology Child & Adolescent Psychiatry; ATTEND Psychiatry & Neurology Child & Adolescent Psychiatry
DX: F20.0 Paranoid schizophrenia (principal); E78.5 Hyperlipidemia, unspecified; J44.9 Chronic obstructive pulmonary disease, unspecified; K21.9 Gastro-esophageal reflux disease without esophagitis; I10 Essential (primary) hypertension; F41.9 Anxiety disorder, unspecified; F10.10 Alcohol abuse, uncomplicated; E87.6 Hypokalemia; D72.829 Elevated white blood cell count, unspecified; M25.511 Pain in right shoulder; Z20.822 Contact with and (suspected) exposure to COVID-19; F99 Mental disorder, not otherwise specified; W18.39XA Other fall on same level, initial encounter; Z59.00 Homelessness unspecified; Z87.891 Personal history of nicotine dependence; Z91.19 Patient's noncompliance with other medical treatment and regimen; Y93.89 Activity, other specified; Y92.89 Other specified places as the place of occurrence of the external cause; Y99.8 Other external cause status
CPT/HCPCS: 80053; 81001; 84132; 85025; 87081; 99285; G0480

== ENCOUNTER 2023-06-03 11:31 | Emergency (ER) | payer MEDICARE, OTHER ==
[~2023-06-03] VITALS: Ht 180.3 cm; Wt 77.3 kg
[~2023-06-03 11:31] MED LIST changes: +OLAN10TA74 PO; -OLAN5TAB30 PO; +OLAN5TAB52 PO
[2023-06-03 11:49] VITALS: BP 112/81; PULSE 98; RESP 18; TEMP 98.2
[2023-06-03 12:48] LABS: BASOPHILS % (AUTO) 0.7 % (0.0-2.0); EOSINOPHILS % (AUTO) 0.9 % (1.0-6.0); HEMATOCRIT 48.2 % (41-53); HEMOGLOBIN 16.1 g/dL (13.5-17.5); LYMPHOCYTES # (AUTO) 2.9 K/uL (1.0-4.8); LYMPHOCYTES % (AUTO) 33.7 % (22.0-44.0); MEAN CORPUSCULAR HEMOGLOBIN 31.4 pg (26.0-34.0); MEAN CORPUSCULAR HGB CONC 33.5 G/dL (31.0-37.0); MEAN CORPUSCULAR VOLUME 94 fL (80-100); MONOCYTES # (AUTO) 0.4 K/uL (0.1-1.0); MONOCYTES % (AUTO) 5.2 % (2.0-9.0); NEUTROPHILS # (AUTO) 5.2 K/uL (1.8-7.7); NEUTROPHILS % (AUTO) 59.5 % (40.0-70.0); PLATELET COUNT (AUTO) 185 K/uL (150-450); RED BLOOD CELL COUNT(AUTO) 5.14 MIL/uL (4.50-5.90); RED CELL DISTRIBUTION WIDTH 14.6 % (11.5-14.5); WHITE BLOOD COUNT (AUTO) 8.7 K/uL (4.5-11.0)
[2023-06-03 13:04] LABS: ANION GAP 8 mmol/L (8-16); CALCIUM, TOTAL 8.5 mg/dL (8.8-10.5); CARBON DIOXIDE 28 mmol/L (22-29); CHLORIDE 97 mmol/L (98-107); CREATININE 0.93 mg/dL (0.60-1.30); GLOMERULAR FILTR. RATE CALC > 60 mL/min (>60); GLUCOSE,RANDOM 90 mg/dL (70-110); POTASSIUM 3.4 mmol/L (3.5-5.1); SODIUM SERUM 133 mmol/L (136-145); UREA NITROGEN, BLOOD 11 mg/dL (7-18)
[2023-06-03 13:06] LABS: ALANINE AMINOTRANSFERASE 29 U/L (12-78); ALBUMIN 3.7 g/dL (3.4-5.0); ALKALINE PHOSPHATASE 72 U/L (46-116); ASPARTATE AMINOTRANSFERASE 28 U/L (15-37); BILIRUBIN,TOTAL 0.4 mg/dL (0.1-1.0); TOTAL PROTEIN, SERUM 7.7 g/dL (6.4-8.2)
[2023-06-03 13:12] LABS: TROPONIN I-HIGH SENSITIVITY 8 ng/L (<76)
[2023-06-03 16:23] LABS: COVID AG,FIA SOURCE NASAL SWAB
[2023-06-03 16:42] LABS: SARS-COV2 (COVID) ANTIGEN,FIA Negative (Negative)
== END 2023-06-03 19:00 | disposition home or self-care (01) ==
LOC: EMS 11:31
DX: F10.90 Alcohol use, unspecified, uncomplicated (principal); R53.1 Weakness; J44.9 Chronic obstructive pulmonary disease, unspecified; F32.A Depression, unspecified; F20.9 Schizophrenia, unspecified; F17.210 Nicotine dependence, cigarettes, uncomplicated; Z20.822 Contact with and (suspected) exposure to COVID-19; Z88.0 Allergy status to penicillin; Y90.9 Presence of alcohol in blood, level not specified
CPT/HCPCS: 99285; 70450; 71045; 87426; 80053; 83735; 84484; 85025; 36415; 72125; 93005; G0480

== ENCOUNTER → 2023-06-07 | Outpatient (CLI) | payer MEDICARE, MEDICAID ==
[2023-06-07 10:15] LABS: GLUCOMETER DEV NAME(LOC) POC.BV; POC SARS-COV2 AG, FIA NEGATIVE (NEGATIVE)
[2023-06-07 11:33] VITALS: BP 123/75; PULSE 109; RESP 18; TEMP 97.6; O2SAT 97
== END | disposition home or self-care (01) ==
LOC: LABMN 00:01 → EDSTATUS 09:01
PROVIDERS: ATTEND Psychiatry & Neurology Child & Adolescent Psychiatry
DX: Z20.822 Contact with and (suspected) exposure to COVID-19 (principal); F99 Mental disorder, not otherwise specified